=== PATIENT | female | born 1940 | race African-American/Black ===

== ENCOUNTER 2021-04-22 13:22 | Emergency (ER) | payer MEDICARE, MEDICAID, SELFPAY ==
[2021-04-22] VITALS (7 sets, daily range): BP systolic 143–218; BP diastolic 77–132; PULSE 71–92; RESP 18–25; TEMP 37.1; O2SAT 97–100
--- NOTE | ~2021-04-22 | CT_ITS ---
EXAMINATION: CTA brain carotid EXAM DATE: 04/22/2021 15:46 INDICATION: Right side hemiparesis, unsteady gait, tingling and numbness/paresthesia. TECHNIQUE: Noncontrast head CT. Spiral CTA of the carotid arteries was performed with intravenous i njection 100 cc of Omnipaque 350. Axial, coronal, sagittal reformatted images reviewed. Additional r eformatted images created on dedicated 3-D workstation. NASCET comparable standard used to assess th e degree of arterial stenosis. Spiral CT angiogram cerebral arteries performed with the same intrave nous injection of contrast. Source images of the brain CTA transferred to dedicated workstation for 3 -D rotational image creation. Coronal, sagittal maximum intensity pixel images also reviewed. The d ose-length product (DLP) for this examination was 1827.34 mGy-cm. The exposure was tailored accordi ng to patient size, and iterative reconstruction (ASIR) was used as additional dose reduction techniq ue. Comparison made to noncontrast head CT 01/02/2017. FINDINGS: There is mild to moderate right carotid, mild left carotid plaque with 0% stenosis bilatera lly. Vertebral basilar arteries unremarkable. Moderate stenosis of most of the left carotid siphon, d istal ICA. Multiple regions of cerebral artery atherosclerosis including truncated right posterior ce rebral artery, severe narrowing of the left middle cerebral artery, other scattered regions of modera te cerebral artery stenosis from atherosclerosis. Patient does have an anterior communicating artery, but difficult to identify any posterior communicating arteries. There is no carotid or vertebral bas ilar arterial dissection or fibromuscular dysplasia. There are no cerebral artery aneurysms. The sag ittal, transverse and sigmoid sinuses enhance normally, no venous sinus thrombosis. Internal cerebral veins also enhance normally. There is a 1.1 cm of acute hemorrhage in the right thalamus. Please note that this would be expected to cause left-sided deficit (history provided may be incorrect?). No intraventricular extension. I di scussed this finding with Jade Lopez MD at 04/22/2021 15:57 CDT. Old right internal capsular and caudate head lacunar infarctions. Old small left cerebellar and right occipital lobe infarctions. There is moderate microangiopathy and cerebral atrophy. There is no mass effect or midline shift. There is no obstructive hydrocephalus suspected. There are no extra-axial collections. Bilateral cataract surgery. Incidental Findings: Multinodular goiter. Moderate disc disease C5-6 and C6-7. Multiple dental caviti es. IMPRESSION: 1. Right thalamic 1.1 cm acute hemorrhagic infarction. 2. Carotid bulb 0% stenosis bilaterally. 3. Significant scattered cerebral arterial sclerosis. Moderate left carotid siphon stenosis. 4. Other chronic and incidental findings. Reviewed, dictated and finalized at location B. IMPRESSION: 1. Right thalamic 1.1 cm acute hemorrhagic infarction. 2. Carotid bulb 0% stenosis bilaterally. 3. Significant scattered cerebral arterial sclerosis. Moderate left carotid si phon stenosis. 4. Other chronic and incidental findings.
--- NOTE | ~2021-04-22 | XR_ITS ---
EXAMINATION: XR chest 1V portable 04/22/2021 13:56 INDICATION: Neuro deficit. Dyspnea. PROCEDURE: AP portable COMPARISON: 01/02/2017 FINDINGS: The lungs are clear. The cardiomediastinal silhouette is within normal limits. There are no pleural effusions. There is no pneumothorax suspected. IMPRESSION: 1: NO ACUTE CARDIOPULMONARY DISEASE. Reviewed, dictated and finalized at location A.
--- NOTE | 2021-04-22 13:37 | ECG_ITS ---
Measurements Intervals [place] Rate: 67 P: 45 MT: 150 QRS: -15 QRSD: 94 T: -2 QT: 407 QTc: 431 Interpretive Statements SINUS RHYTHM ATRIAL PREMATURE COMPLEXES VOLTAGE CRITERIA FOR LVH BORDERLINE T WAVE ABNORMALITY- INFERIOR LEADS BASELINE ARTIFACT- I, II, III, AVR, AVL, AVF, V1, V3-V6 BORDERLINE ECG Electronically Signed On 04-22-2021 13:39:51 CDT by Marco Antonio Kurtz D.O.
--- NOTE | 2021-04-22 13:56 | ED.NEUROSD ---
HPI - Neuro Symptoms/Deficit General Chief Complaint: Neuro Symptoms/Deficit Stated Complaint: WEAKNESS Time Seen by Provider: 04/22/21 13:39 Source: patient and RN notes reviewed Mode of arrival: EMS History of Present Illness HPI Narrative: This is a 80 year old female with history of HTN, DM, previous CVA with residual right side weakness who presents for evaluation of a possible CVA. She is concerned she may have had a stroke because she was having difficulty getting up from bathroom this morning around 5 am. She woke up this morning at 5 am. She feels like her right side feels weaker than normal. She also feels like right side of face is different. Her has had to help her this morning because she is having difficulty walking. She also reports increased urinary frequency today. She denies headache, blurred vision, chest pain, abdominal pain or shortness of breath. She has not taken any of her medication today. She woke up with symptoms at 5 am Related Data Home Medications Medication Instructions Recorded Confirmed apixaban [Eliquis] 5 mg PO BID 04/22/21 irbesartan 150 mg PO DAILY 04/22/21 metformin 500 mg PO DAILY 04/22/21 Allergies Allergy/AdvReac Type Severity Reaction Status Date / Time No Known Allergies Allergy Mild Verified 04/22/21 13:38 Review of Systems Review of Systems: All systems reviewed & are unremarkable except as noted in HPI and below Constitutional: Constitutional: Denies chills and Denies fever(s) Cardiovascular: Cardiovascular: Denies chest pain Respiratory: Respiratory: Denies cough and Denies dyspnea Genitourinary: Genitourinary: Reports nocturia Neurologic: Reports dizziness, Denies headache(s) and Reports focal weakness (right side) [facility] Past Medical History Medical History (Updated 04/22/21 @ 16:49 by Jade Lopez MD) CVA, old, hemiparesis Diabetes mellitus Hypertension Social History Social History (Updated 04/22/21 @ 13:59 by Jade Lopez MD) Smoking status: Never smoker Exam Const: General: alert Orientation/consciousness: patient oriented x3 Eyes: Pupils: Equal, round and reactive pupils present Resp: Effort & Inspection: normal respiratory effort and no retractions Auscultation: clear to auscultation bilaterally Cardio: Rate: regular rate Rhythm: regular rhythm Heart sounds: no murmurs GI: GI Palp: Yes Soft to palpation, No Tenderness to palpation present (GI) and No Guarding due to palpation present (GI) Auscultation: normal bowel sounds Skin: General skin exam: normal color Rashes: no rashes Neuro: General: patient oriented x3, moves all extremities and no focal motor deficits Cranial nerves: Yes Nystagmus present Other: slurred speech Psych: Mental Status: mental status grossly normal Affect: normal affect Course Reevaluation(s) Reevaluation #1: I have discussed with patient and that she was found to have acute intracranial hemorrhage Date: 04/22/21 Time: 16:45 Consultations Consultation #1: I spoke with Dr. Garcia of [facility] stroke. I discussed case. He agrees to cardene drip and BP goal 140 sysolic. He states no need to reverse eliquis. Patient should be sent to ER time critical. I also spoke with DR. You in ER Date: 04/22/21 Time: 16:45 Vital Signs Vital signs: Vital Signs Temperature 98.8 F 04/22/21 13:19 Pulse Rate 72 04/22/21 13:19 Respiratory Rate 18 04/22/21 13:19 Blood Pressure 218/115 H 04/22/21 13:19 Pulse Oximetry 97 04/22/21 13:19 Temperature 98.8 F 04/22/21 13:19 Pulse Rate 86 04/22/21 17:31 Respiratory Rate 25 H 04/22/21 17:26 Blood Pressure 146/78 H 04/22/21 17:31 Pulse Oximetry 98 04/22/21 17:26 MDM - Neuro Symptoms/Deficit Lab Data Attestation: I reviewed the patient's lab results. Result diagrams: 04/22/21 14:12 04/22/21 14:12 Labs: Lab Results 04/22/21 04/22/21 04/22/21 Range/Units 14:00 14:0
[2021-04-22] MEDS: IRBESARTAN 150 MG TABLET PO (14:19)
[2021-04-22 14:29] LABS: Basophils Percent Auto 0.7 % (0.2-1.2); Eosinophils Absolute Auto 0.3 K/mm3 (0-0.3); Eosinophils Percent Auto 5.5 % (0-4.4); Hematocrit 37.1 % (37.0-47.0); Hemoglobin 11.9 g/dL (12.0-15.0); Immature Granulocyte Absolute 0.01 K/mm3 (0.00-0.031); Immature Granulocyte Percent A 0.2 % (0-0.5); Lymphocytes Absolute Auto 1.85 K/mm3 (0.9-3.2); Lymphocytes Percent Auto 30.2 % (18.3-44.2); Mean Corpuscular HGB Conc 32.1 g/dl (32-36); Mean Corpuscular Hemoglobin 28.3 pg (26-34); Mean Corpuscular Volume 88.3 fl (80-100); Mean Platelet Volume 10.6 fl (7.4-10.4); Monocytes Absolute Auto 0.5 K/mm3 (0.1-0.6); Monocytes Percent Auto 8.6 % (2.6-8.5); Neutrophils Absolute Auto 3.4 K/mm3 (1.3-6.7); Neutrophils Percent Auto 54.8 % (45.5-73.1); Platelet Count Result 223 k/mm3 (150-375); Red Cell Distribution Width 13.4 % (11.5-14.5); White Blood Count 6.1 K/mm3 (4.5-10.0)
[2021-04-22 14:33] LABS: Add Urine Microscopic? YES; Appearance Urine Clear (Clear); Bilirubin Urine Negative (Negative); Blood Urine 2+ (Negative); Color Urine Colorless (Yellow); Glucose Urine UA Negative (Negative); Ketones Urine Negative (Negative); Leukocyte Esterase Ur Negative LEU/UL (Negative); Nitrate Urine Negative (Negative); Protein Urine Negative (Negative); RBC Urine 0-2 /hpf (0-2); Urobilinogen Urine Negative mg/dL (<2.0); WBC Urine 0-3 /hpf
[2021-04-22 14:35] LABS: Specific Grav Ur 1.003 (1.001-1.035)
[2021-04-22 14:39] LABS: INR 1.4; Prothrombin Time 16.9 Seconds (11.1-14.7)
[2021-04-22 14:46] LABS: Anion Gap 9 mmol/L (8-16); Blood Urea Nitrogen 10 mg/dL (7-17); Calcium 8.8 mg/dL (8.4-10.2); Carbon Dioxide 27 mmol/L (22-30); Chloride 105 mmol/L (98-107); Estimated CRCL calculation 42 ml/min; Estimated Glomerular Filt Rate > 60; Glucose 108 mg/dL (65-110); Potassium 3.6 mmol/L (3.4-5.0); Sodium 141 mmol/L (137-145)
[2021-04-22 14:56] LABS: Troponin I < 0.012 ng/mL (0.000-0.034)
[2021-04-22 14:57] LABS: Glucose Point of Care 109 mg/dl (65-105)
--- NOTE | 2021-04-22 15:14 | PC.NURSE ---
Pt to CT scan
[2021-04-22] MEDS: LABETALOL HCL INJ 100 MG/20 ML VIAL 20 MG IV PUSH (16:16)
[2021-04-22] MEDS: niCARdipine 20 MG/200 ML 20 MG/200 ML BAG 50 MG IV CONT (16:17)
[2021-04-22] MEDS: niCARdipine 20 MG/200 ML 20 MG/200 ML BAG 75 MG IV CONT (17:31)
== END 2021-04-22 17:30 | disposition short-term general hospital (02) ==
PROVIDERS: Emergency Medicine; Emergency Provider General Practice; PCP Emergency Medicine
DX: I62.9 Nontraumatic intracranial hemorrhage, unspecified (principal); I16.9 Hypertensive crisis, unspecified; E11.9 Type 2 diabetes mellitus without complications; Z79.84 Long term (current) use of oral hypoglycemic drugs
CPT/HCPCS: 36415; 70496; 70498; 71045; 80048; 81001; 82948; 84484; 85025; 85610; 85730; 93005; 96365; 96375; 99291; A9270; Q9967

== ENCOUNTER 2021-05-16 23:05 | Emergency (ER) | payer MEDICARE, MEDICAID, SELFPAY ==
--- NOTE | ~2021-05-16 | CT_ITS ---
EXAMINATION: CT brain wo con DATE: 05/17/2021 00:04 INDICATION: Ground-level fall after losing balance. Patient on anticoagulant therapy. History of cere brovascular accident. Generalized weakness. TECHNIQUE: Computed tomography (CT) of the head was performed without intravenous contrast. The mA wa s adjusted according to patient size. Iterative reconstruction technique was employed. Exam dose: 60 5.33 mGy-cm total exam DLP. COMPARISON: 04/22/2021 CTA brain carotid 01/03/2017 MRI brain/brainstem 01/12/2017 CT brain FINDINGS: Old left cerebellar hemispheric infarct. Focal right occipital old infarct. There are bilat eral chronic lacunar infarcts of the basal ganglia and thalami, right caudate nucleus, anterior limb and genu of the right internal capsule. There is prominent patchy nonspecific diminished attenuation of the subcortical and periventricular cerebral white matter, likely due to chronic small vessel isch emic changes. Cerebral atherosclerosis. No intracranial mass lesion or hemorrhage is evident. No midline shifts or mass effects. No subdural or epidural hematoma. No fracture or bone destruction of the cranial vault. The mastoid air cells and included paranasal sinuses are normally developed and aerated. IMPRESSION: Cerebral atherosclerosis Chronic small vessel ischemic changes of the cerebral white matter Chronic lacunar infarcts of the bilateral basal ganglia and thalami, right caudate nucleus and right internal capsule, right occipital lobe and left cerebellum No acute intracranial abnormality or skull fracture Reviewed, dictated and finalized at Location [facility]. Reviewed, dictated and finalized at location A. IMPRESSION: Cerebral atherosclerosis Chronic small vessel ischemic changes of the cerebral white matter Chronic lacunar infarcts of the bilateral basal ganglia and thalami, right caud ate nucleus and right internal capsule, right occipital lobe and left cerebellu m No acute intracranial abnormality or skull fracture
[2021-05-16 23:06] VITALS: BP 159/93; PULSE 64; RESP 19; TEMP 36.7; O2SAT 99
[2021-05-16 23:11] VITALS: O2SAT 98
--- NOTE | 2021-05-16 23:13 | PC.NURSE ---
Patient states when she fell she did hit her head on the left side, denies any pain to her head or neck.
[2021-05-16 23:15] VITALS: O2SAT 100
[2021-05-16 23:30] VITALS: O2SAT 99
[2021-05-16 23:32] VITALS: BP 164/96; O2SAT 99
[2021-05-16 23:45] VITALS: O2SAT 99
--- NOTE | 2021-05-16 23:52 | PC.NURSE ---
Patient taken to CT.
[2021-05-17] VITALS (10 sets, daily range): BP systolic 160–169; BP diastolic 81–88; PULSE 81–85; RESP 17–18; TEMP 36.1; O2SAT 96–100
--- NOTE | 2021-05-17 01:10 | ED.GENADULT ---
HPI - General Adult General Chief complaint: Fall Stated complaint: fall Time Seen by Provider: 05/16/21 23:06 History of Present Illness HPI narrative: Patient is an 81-year-old female who presents ER status post fall. Patient is supposed to use assistance when she gets up to walk but did not ask for help and while going to the bathroom slipped and fell backwards striking her head. She did not lose consciousness. She is oriented x4. She does take Eliquis given the fact that she has had stroke. Denies any other complaints at this time. Related Data Home Medications Medication Instructions Recorded Confirmed apixaban [Eliquis] 5 mg PO BID 04/22/21 irbesartan 150 mg PO DAILY 04/22/21 metformin 500 mg PO DAILY 04/22/21 Allergies Allergy/AdvReac Type Severity Reaction Status Date / Time No Known Allergies Allergy Mild Verified 04/22/21 13:38 Review of Systems Review of Systems: All systems reviewed & are unremarkable except as noted in HPI and below Constitutional: Constitutional: Denies chills, Denies fever(s) and Denies weakness ENT: Denies nasal congestion and Denies sore throat Cardiovascular: Cardiovascular: Denies chest pain, Denies rapid heart rate and Denies radiating jaw, neck or arm pain Gastrointestinal: Gastrointestinal: Denies abdominal pain, Denies nausea and Denies vomiting Musculoskeletal: Musculoskeletal: Denies back pain and Denies muscle cramps Neurologic: Denies syncope, Denies headache(s), Denies focal weakness and Denies numbness PMFSH Past Medical History Medical History (Updated 05/17/21 @ 01:14 by Raúl Wright MD) CVA, old, hemiparesis Diabetes mellitus Hypertension Surgical History Surgical History (Updated 05/17/21 @ 01:12 by Raúl Wright MD) No pertinent past surgical history Social History Social History (Updated 04/22/21 @ 13:59 by Jade Lopez MD) Smoking status: Never smoker Exam Narrative: GENERAL: Well-appearing, well-nourished, and in no acute distress. HEAD: Normocephalic, atraumatic. EYES: PERRL and EOMI. ENT: Mucous membranes moist. CHEST: Clear to auscultation. No respiratory distress. HEART: Regular rate and rhythm. Normal peripheral pulses. EXTREMITIES: Normal range of motion. No edema. SKIN: Warm, dry, no rash. NEURO: No focal deficits. Alert and oriented x3. PSYCH: Normal mood and affect. Course Course Emergency Course: Patient informed results. Discharge home. Vital Signs Vital signs: Vital Signs Temperature 98.0 F 05/16/21 23:06 Pulse Rate 64 05/16/21 23:06 Respiratory Rate 19 05/16/21 23:06 Blood Pressure 159/93 H 05/16/21 23:06 Pulse Oximetry 99 05/16/21 23:06 Temperature 98.0 F 05/16/21 23:06 Pulse Rate 64 05/16/21 23:06 Respiratory Rate 19 05/16/21 23:06 Blood Pressure 169/81 H 05/17/21 00:31 Pulse Oximetry 99 05/17/21 00:45 Medical Decision Making Vital Signs Vital Signs: Vital Signs Temperature 98.0 F 05/16/21 23:06 Pulse Rate 64 05/16/21 23:06 Respiratory Rate 19 05/16/21 23:06 Blood Pressure 159/93 H 05/16/21 23:06 Pulse Oximetry 99 05/16/21 23:06 Temperature 98.0 F 05/16/21 23:06 Pulse Rate 64 05/16/21 23:06 Respiratory Rate 19 05/16/21 23:06 Blood Pressure 169/81 H 05/17/21 00:31 Pulse Oximetry 99 05/17/21 00:45 Imaging Data Radiologist's impression: CT head: Moderate diffuse periventricular and deep white matter low-density throughout the cerebrum consistent with chronic small vessel disease. Multiple old lacunar infarcts in the right frontal lobe deep white matter, right basal ganglia, left thalamus, and in the mid brain on the right. Old infarct left cerebellum measuring approximately 0.7 cm. No evidence of acute large vessel infarct or intracranial hemorrhage. The paranasal sinuses and mastoid air cells are normal. No skull fracture or scalp hematoma. Discharge Plan Discharge Clinical Impression: Head injury
== END 2021-05-17 05:06 | disposition home or self-care (01) ==
PROVIDERS: Emergency Provider Emergency Medicine; PCP Emergency Medicine
DX: S09.90XA Unspecified injury of head, initial encounter (principal); I69.959 Hemiplegia and hemiparesis following unspecified cerebrovascular disease affecting unspecified side; E11.9 Type 2 diabetes mellitus without complications; I10 Essential (primary) hypertension; I67.2 Cerebral atherosclerosis; W01.0XXA Fall on same level from slipping, tripping and stumbling without subsequent striking against object, initial encounter; Z79.01 Long term (current) use of anticoagulants; Z79.84 Long term (current) use of oral hypoglycemic drugs
CPT/HCPCS: 70450; 99284

== ENCOUNTER 2022-04-15 16:45 | Emergency (ER) | payer MEDICARE, MEDICAID, SELFPAY ==
[2022-04-15] VITALS (16 sets, daily range): BP systolic 184–220; BP diastolic 85–120; PULSE 55–94; RESP 15–23; TEMP 37; O2SAT 88–99
--- NOTE | ~2022-04-15 | CT_ITS ---
EXAMINATION: CT brain wo con DATE: 04/15/2022 20:56 INDICATION: Weakness. TECHNIQUE: Computed tomography (CT) of the head was performed without intravenous contrast. The mA wa s adjusted according to patient size. Iterative reconstruction technique was employed. The dose-lengt h product was 605.33 mGy-cm. COMPARISON: Head CT 05/16/2021, brain MRI 01/03/2017 FINDINGS: There are scattered areas of low attenuation in the cerebral white matter. There are old in farcts in the bilateral basal ganglia and thalami. There is an old infarct in left cerebellum. There is a 6 mm hyperdense mass in left cerebellum. There is a small old infarct in right cerebellum. There is no acute ischemic infarct. There is ex vacuo dilatation of right lateral ventricle. There are lik ailyn changes of ocular lens replacement surgeries. There is mild mucosal thickening in the paranasal s inuses. The mastoid air cells are normal. IMPRESSION: 1. New 6 mm hyperdense mass in left cerebellum, consistent with acute intraparenchymal hemorrhage. I called this finding to Ivanna Mendoza. 2. Old infarcts in the cerebellum, thalami, and bilateral basal ganglia. 3. Stable extensive nonspecific cerebral white matter disease, which likely represents chronic small vessel ischemic disease. Reviewed, dictated and finalized at location A. IMPRESSION: 1. New 6 mm hyperdense mass in left cerebellum, consistent with acute intrapare nchymal hemorrhage. I called this finding to Ivanna Mendoza. 2. Old infarcts in the cerebellum, thalami, and bilateral basal ganglia. 3. Stable extensive nonspecific cerebral white matter disease, which likely rep resents chronic small vessel ischemic disease.
--- NOTE | 2022-04-15 17:00 | ECG_ITS ---
Measurements Intervals [place] Rate: 61 P: 60 [place]: 151 QRS: 2 QRSD: 105 T: -19 QT: 429 QTc: 435 Interpretive Statements SINUS RHYTHM DELAYED PRECORDIAL R/S TRANSITION LEFT VENTRICULAR HYPERTROPHY BORDERLINE T WAVE ABNORMALITY- INFERIOR LEADS BASELINE ARTIFACT- I, II, AVR, AVL BORDERLINE ECG Electronically Signed On 04-15-2022 20:23:06 CDT by Marco Antonio Kurtz D.O.
--- NOTE | 2022-04-15 20:28 | ED.GENADULT ---
HPI - General Adult General Chief complaint: Unspecified <Ivanna Mendoza PA-C - Last Filed: 04/16/22 02:16> Stated complaint: Hih BP, From PCP office <MALGORZATA Jordan Last Filed: 04/16/22 02:16> Time Seen by Provider: 04/15/22 20:28 <Ivanna Mendoza PA-C - Last Filed: 04/16/22 02:16> History of Present Illness HPI narrative: Patient is an 81-year-old female with history of old ICH, hypertension here for evaluation of elevated blood pressure at her doctor's office. States that she feels funny but does not have any symptoms such as chest pain, shortness of breath, headaches, visual changes, weakness on one side of her body. She states that she has been out of her blood pressure medicines for the past 2 days. She did have a fall yesterday and is unsure if she hit her head. She does take Eliquis but is unsure if she takes ASA. <MALGORZATA Jordan Last Filed: 04/16/22 02:16> Related Data Home medications: Home Medications Medication Instructions Recorded Confirmed apixaban 5 mg tablet (Eliquis) 5 mg PO BID 04/22/21 irbesartan 150 mg tablet 150 mg PO DAILY 04/22/21 metformin 500 mg tablet 500 mg PO DAILY 04/22/21 metoprolol succinate 25 mg 25 mg PO 04/15/22 tablet,extended release 24 hr <MALGORZATA Jordan Last Filed: 04/16/22 02:16> Allergies/adverse reactions: Allergies Allergy/AdvReac Type Severity Reaction Status Date / Time No Known Allergies Allergy Mild Verified 04/15/22 20:27 <MALGORZATA Jordan Last Filed: 04/16/22 02:16> Review of Systems Review of Systems: Gen.: Denies fevers or chills Eyes: Denies eye pain or visual change ENT: Denies congestion Respiratory: Denies shortness of breath or cough CV: Denies chest pain or palpitations GI: Denies abdominal pain nausea, emesis or diarrhea denies burning, urgency, frequency or hematuria Musculoskeletal: Denies back pain or muscle pain Neuro: Denies numbness, tingling, weakness or focal weakness Skin: Denies rash Except as documented, all other systems reviewed and negative <Ivanna Mendoza PA-C - Last Filed: 04/16/22 02:16> PMFSH Past Medical History Medical History: Medical History CVA, old, hemiparesis Diabetes mellitus Hypertension <Ivanna Mendoza PA-C - Last Filed: 04/16/22 02:16> Surgical History Surgical History: Surgical History No pertinent past surgical history <Ivanna Mendoza PA-C - Last Filed: 04/16/22 02:16> Social History Social History: Social History (Updated 04/22/21 @ 13:59 by Jade Lopez MD) Smoking status: Never smoker <Ivanna Mendoza PA-C - Last Filed: 04/16/22 02:16> Exam Narrative: APPEARANCE: Well appearing, no pain in distress, well-nourished. Head: Normocephalic and atraumatic. EYES: PERRLA/EOMI, conjunctivae clear NOSE: No nasal drainage EARS: External ear normal in appearance THROAT: Oropharynx is clear. Mucous membranes are moist. NECK: Supple. No adenopathy, no masses. RESPIRATORY: Airway patent, respirations nonlabored. Clear to auscultation bilaterally, no rales, rhonchi, wheezing. CARDIOVASCULAR: Regular rate and rhythm without murmurs, rubs, or gallops. ABDOMINAL: Normoactive bowel sounds. Soft, nontender, nondistended. No rebound tenderness or guarding. MUSCULOSKELETAL: Extremities are warm and well-perfused. Moves all extremities well. No edema. NEURO: Normal speech. [id number] abnormal. SKIN: Skin is warm and dry. No rashes. PSYCHIATRIC: Normal affect/mood. <Ivanna Mendoza PA-C - Last Filed: 04/16/22 02:16> Course SURGICAL RESIDENT/PA Physician Supervision For this patient encounter, I reviewed the SURGICAL RESIDENT or PA documentation, treatment plan, and medical decision making <Royal Stafford MD - Last Filed: 04/16/22 03:28>
[2022-04-15 20:49] LABS: Basophils Absolute Auto 0.1 K/mm3 (0.0-0.1); Basophils Percent Auto 0.7 % (0.2-1.2); Eosinophils Absolute Auto 0.7 K/mm3 (0-0.3); Eosinophils Percent Auto 9.1 % (0-4.4); Hematocrit 35.5 % (37.0-47.0); Hemoglobin 11.2 g/dL (12.0-15.0); Immature Granulocyte Absolute 0.02 K/mm3 (0.00-0.031); Immature Granulocyte Percent A 0.3 % (0-0.5); Lymphocytes Absolute Auto 2.71 K/mm3 (0.9-3.2); Lymphocytes Percent Auto 36.9 % (18.3-44.2); Mean Corpuscular HGB Conc 31.5 g/dl (32-36); Mean Corpuscular Hemoglobin 28.4 pg (26-34); Mean Corpuscular Volume 90.1 fl (80-100); Mean Platelet Volume 10.2 fl (7.4-10.4); Monocytes Absolute Auto 0.6 K/mm3 (0.1-0.6); Monocytes Percent Auto 8.4 % (2.6-8.5); Neutrophils Absolute Auto 3.3 K/mm3 (1.3-6.7); Neutrophils Percent Auto 44.6 % (45.5-73.1); Platelet Count Result 222 k/mm3 (150-375); Red Blood Count 3.94 M/mm3 (4.2-5.4); Red Cell Distribution Width 13.3 % (11.5-14.5); White Blood Count 7.3 K/mm3 (4.5-10.0)
[2022-04-15 20:59] LABS: Alanine Aminotransferase 19 U/L (6-35); Albumin Level 3.8 g/dL (3.5-5.1); Alkaline Phosphatase 167 U/L (38-126); Anion Gap 4 mmol/L (8-16); Aspartate Amino Transferase 21 U/L (14-36); Bilirubin,Total 0.4 mg/dL (0.2-1.3); Blood Urea Nitrogen 13 mg/dL (7-17); Carbon Dioxide 30 mmol/L (22-30); Chloride 106 mmol/L (98-107); Estimated CRCL calculation 41 ml/min; Estimated Glomerular Filt Rate > 60; Glucose 88 mg/dL (65-110); Potassium 3.3 mmol/L (3.4-5.0); Sodium 140 mmol/L (137-145)
[2022-04-15] MEDS: niCARdipine 20 MG/200 ML 20 MG/200 ML BAG 50 MG IV CONT (21:37)
[2022-04-15] MEDS: HUMAN PROTHROMBIN COMPLEX(PCC) 3,000 UNITS in PREMIXIV 0 ML 504 UNITS IV CONT (22:02)
== END 2022-04-15 22:05 | disposition short-term general hospital (02) ==
PROVIDERS: Physician Assistant; Emergency Provider Emergency Medicine; PCP Emergency Medicine
DX: I61.4 Nontraumatic intracerebral hemorrhage in cerebellum (principal); I69.959 Hemiplegia and hemiparesis following unspecified cerebrovascular disease affecting unspecified side; E11.9 Type 2 diabetes mellitus without complications; I10 Essential (primary) hypertension; Z79.01 Long term (current) use of anticoagulants; Z79.84 Long term (current) use of oral hypoglycemic drugs; I51.7 Cardiomegaly; R94.31 Abnormal electrocardiogram [ECG] [EKG]; R90.82 White matter disease, unspecified
CPT/HCPCS: 36415; 70450; 80053; 85025; 93005; 96374; 96375; 99285; J7168

== ENCOUNTER 2023-07-07 14:19 | Observation (INO) | payer MEDICARE, MEDICAID, SELFPAY ==
[2023-07-07] VITALS (12 sets, daily range): BP systolic 143–225; BP diastolic 80–126; PULSE 49–125; RESP 14–24; TEMP 36.1–36.8; O2SAT 96–100; BMI 18.8
--- NOTE | ~2023-07-07 | XR_ITS ---
EXAMINATION: XR abdomen obstructive series DATE: 07/09/2023 12:39 INDICATION: Abdominal pain. TECHNIQUE: Upright and supine views of the abdomen on 3 radiographs were obtained. COMPARISON: None. FINDINGS: There are no dilated loops of bowel. There is a moderate volume of stool in the colon. No f ree intraperitoneal gas. IMPRESSION: 1. Normal bowel gas pattern. Reviewed, dictated and finalized at location A.
--- NOTE | ~2023-07-07 | CT_ITS ---
EXAMINATION: CT brain wo con DATE: 07/07/2023 17:18 INDICATION: Weakness. Hypertension. TECHNIQUE: Computed tomography (CT) of the head was performed without intravenous contrast. The dose- length product was 605.33 mGy-cm. Automated exposure control and iterative reconstruction technique w ere employed. COMPARISON: CT dated 04/15/2022 FINDINGS: There is chronic right occipital and left cerebellar infarctions. Chronic left thalamic and bilateral lacunar infarctions. Generalized atrophy. There are scattered severe periventricular and s ubcortical white matter changes, most likely related to small vessel ischemic disease (microangiopath y). No ventriculomegaly or midline shift. Basilar cisterns are patent. There is intracranial atherosc lerosis. No acute hemorrhage, infarction, mass or mass effect. IMPRESSION: 1. No acute intracranial abnormality. Reviewed, dictated and finalized at location A.
--- NOTE | ~2023-07-07 | XR_ITS ---
EXAMINATION: XR chest 2V DATE: 07/07/2023 15:26 INDICATION: Weakness TECHNIQUE: AP and lateral views of the chest are obtained. COMPARISON: 04/22/2021 FINDINGS: The lungs are free of acute opacities. No pleural effusion or pneumothorax. The cardiomedia stinal silhouette is normal. There is moderate thoracic spondylosis. IMPRESSION: 1. No acute cardiopulmonary abnormality. Reviewed, dictated and finalized at location L.
--- NOTE | ~2023-07-07 | XR_ITS ---
MODIFIED ESOPHAGRAM HISTORY: Aspiration TECHNIQUE: Modified barium esophagram was performed on 07/11/2023. I administered fluoroscopy and per formed the exam with speech pathologist. Patient was seated for lateral fluoroscopic imaging for ing estion of thin liquids, pudding, solids and quantified amounts, followed by thin liquids in uncontrol led amounts. This was recorded on tape. A single fluoroscopic spot image was also recorded. The DAP f or this procedure was 2.748 Gycm2. The amount of fluoroscopy time used during this procedure was 4.2 minutes. FINDINGS: Oral stage: Reduced labial seal/attention and reduced lingual movement. Pharyngeal stage: Reduced laryngeal elevation and tongue base retraction. There is vallecular residue and pharyngeal penetration without aspiration. Cervical/esophageal stage: Adequate function. IMPRESSION: Oropharyngeal dysphagia with laryngeal penetration without aspiration. Please correlate with speech pathologist findings and specific feeding recommendations. Reviewed, dictated and finalized at location A. IMPRESSION: Oropharyngeal dysphagia with laryngeal penetration without aspirati on. Please correlate with speech pathologist findings and specific feeding rec ommendations.
--- NOTE | 2023-07-07 14:23 | ECG_ITS ---
Measurements Intervals [place] Rate: 48 P: 84 [place]: 152 QRS: 8 QRSD: 106 T: 267 QT: 459 QTc: 413 Interpretive Statements SINUS BRADYCARDIA ST DEVIATION AND MODERATE T-WAVE ABNORMALITY, CONSIDER ANTEROLATERAL ISCHEMIA [-0.1+ mV T WAVE IN V3-V6] ST DEVIATION AND MODERATE T-WAVE ABNORMALITY, CONSIDER INFERIOR ISCHEMIA [-0.1+ mV T WAVE IN II/aVF] ABNORMAL ECG NO PREVIOUS ECG AVAILABLE FOR COMPARISON Electronically Signed On 07-08-2023 7:24:04 CDT by Dillon Benites M.D.
[2023-07-07 15:07] LABS: Appearance Urine Cloudy (Clear); Bacteria Urine None Seen /hpf; Bilirubin Urine 2+ (Negative); Blood Urine Negative (Negative); Color Urine Dark Yellow (Yellow); Glucose Urine UA Negative (Negative); Ketones Urine 1+ mg/dL (Negative); Leukocyte Esterase Ur 1+ LEU/UL (Negative); Mucus Urine Present /lpf; Need Manual Microscopic Reviewed; Nitrate Urine Negative (Negative); Non Pathogenic Casts >20; Protein Urine 2+ mg/dL (Negative); Specific Grav Ur 1.032 (1.001-1.035); Squamous Epithelial Cell Urine Moderate /hpf (Few); WBC Urine 0-5 /hpf
[2023-07-07 15:08] LABS: Basophils Percent Auto 0.7 % (0.2-1.2); Eosinophils Absolute Auto 0.1 K/mm3 (0-0.3); Eosinophils Percent Auto 1.5 % (0-4.4); Hematocrit 32.7 % (37.0-47.0); Hemoglobin 10.5 g/dL (12.0-15.0); Immature Granulocyte Absolute 0.02 K/mm3 (0.00-0.031); Immature Granulocyte Percent A 0.4 % (0-0.5); Lymphocytes Percent Auto 30.4 % (18.3-44.2); Mean Corpuscular HGB Conc 32.1 g/dl (32-36); Mean Corpuscular Hemoglobin 28.4 pg (26-34); Mean Corpuscular Volume 88.4 fl (80-100); Mean Platelet Volume 10.2 fl (7.4-10.4); Monocytes Absolute Auto 0.4 K/mm3 (0.1-0.6); Monocytes Percent Auto 7.8 % (2.6-8.5); Neutrophils Absolute Auto 2.7 K/mm3 (1.3-6.7); Neutrophils Percent Auto 59.2 % (45.5-73.1); Platelet Count Result 182 k/mm3 (150-375); Red Cell Distribution Width 13.2 % (11.5-14.5); White Blood Count 4.6 K/mm3 (4.5-10.0)
[2023-07-07 15:10] LABS: Add Urine Microscopic? YES
[2023-07-07 15:17] LABS: Alanine Aminotransferase 14 U/L (6-35); Albumin Level 3.6 g/dL (3.5-5.1); Alkaline Phosphatase 84 U/L (38-126); Anion Gap 9 mmol/L (8-16); Aspartate Amino Transferase 26 U/L (14-36); Bilirubin,Total 0.6 mg/dL (0.2-1.3); Blood Urea Nitrogen 17 mg/dL (7-17); Calcium 8.9 mg/dL (8.4-10.2); Carbon Dioxide 25 mmol/L (22-30); Chloride 104 mmol/L (98-107); Estimated CRCL calculation 29 ml/min; Estimated Glomerular Filt Rate 58; Glucose 94 mg/dL (65-110); Sodium 138 mmol/L (137-145)
[2023-07-07 17:30] LABS: Troponin I < 0.012 ng/mL (0.000-0.034)
--- NOTE | 2023-07-07 18:30 | PC.NURSE ---
Spoke with pt's Jarrod Thomas at regarding pt. stated that the pt has been losing her appetite and now eats around one meal and day and stated she has been sleeping a lot more.
--- NOTE | 2023-07-07 20:00 | ED.WEAKNESS ---
HPI - Weakness General Chief complaint: Weakness Stated complaint: weakness Time Seen by Provider: 07/07/23 16:30 Source: patient, EMS and RN notes reviewed Mode of arrival: EMS Limitations: other (poor historian) History of Present Illness HPI Narrative: This is an 83 year old female with history of hypertension, CVA, intracranial hemorrhage who presents for evaluation of weakness. Patient is alert and oriented x 4. She is not sure why she is here. She states she feels well. She denies chest pain, nausea, vomiting, shortness of breath, abdominal pain, fever, chills. She was sent to ER from her PCP office Dr. Monge for weakness. Nursing called patient's and he told them patient is only eats 1 meal a day for 1 week and she is sleeping more. Dr. Monge states patient looked as if she could not hold her head up. She looked weak. Related Data Allergies Allergy/AdvReac Type Severity Reaction Status Date / Time No Known Drug Allergies Allergy Unknown Unverified 04/29/22 12:49 Review of Systems Review of Systems: All systems reviewed & are unremarkable except as noted in HPI and below PMFSH Past Medical History Medical History Combined hyperlipidemia CVA (cerebral vascular accident) CVA, old, hemiparesis Diabetes Diabetes mellitus Hypertension Hypertension Intraparenchymal hemorrhage of brain Surgical History Surgical History (Updated 04/21/22 @ 14:41 by Richar Valente) No pertinent past surgical history Social History Social History Smoking status: Never smoker Alcohol intake: never Substance use: never Lack of Transportation: No Lack of Food: Never True Current Housing: I Have Housing Concerned About Future Housing: No Difficulty Paying Gas/Electric Bills: No Difficulty Paying for Meds: No Currently Unemployed: No Education: Decline to Answer Difficulty w/ Childcare or Family Care: Decline to Answer Spiritual care concerns: No Exam Const: General: no acute distress and alert Orientation/consciousness: patient oriented x3 HENMT: Head: normal to inspection Mouth: Yes moist mucous membranes Throat: posterior oropharynx normal and uvula midline Eyes: Pupils: Equal, round and reactive pupils present Other: disconjugate gaze Chest: Chest palpation & inspection: normal inspection of the chest Resp: Effort & Inspection: normal respiratory effort Auscultation: clear to auscultation bilaterally Cardio: Rate: bradycardic Rhythm: regular rhythm Heart sounds: no murmurs GI: GI Palp: Yes Soft to palpation, No Tenderness to palpation present (GI), No Guarding due to palpation present (GI) and No Rigid due to palpation Auscultation: normal bowel sounds Skin: General skin exam: normal color Rashes: no rashes Neuro: General: patient oriented x3, moves all extremities and CN's II-XI intact bilaterally Other: Patient had unsteady gait Psych: Mental Status: mental status grossly normal Affect: normal affect Attitude: cooperative Course Reevaluation(s) Reevaluation #1: Nursing staff and I ambulated patient. She was able to sit her self up. She need some assistance lower feet to ground and getting her walk. She was able to ambulate with her walker but she was unsteady. She seemed to be having difficulty walking straight to the door. She may be having difficulty seeing. Nursing also reports patient seemed to be unable to drink water They state she was drooling so didn't feel comfortable giving pills. Date: 07/07/23 Time: 20:15 Consultations Consultation #1: I Discussed case with DR. Baptiste. She agrees to admit for failure to thrive. REcommend Pt/ OT speech therapy evaluation. Patient likey having progression of her previous neuro issues. She does not appear to have CVA at this time. Date: 07/07/23 Time: 20:42 Vital Signs Vital signs: Vital Signs Tem
[2023-07-07] MEDS: SODIUM CHLORIDE 0.9% IV 500 ML 999 ML IV CONT (20:35)
--- NOTE | 2023-07-07 20:42 | PC.NURSE ---
Pt unable to swallow water without drooling/coughing. Potassium held. Dr Lopez notified.
--- NOTE | 2023-07-07 20:52 | PM.IMHP ---
H&P: HPI History of Present Illness Date/Time: 07/07/23 20:52 Chief Complaint: Generalized weakness Narrative: This is an 83-year-old female with past medical history significant for intracranial bleed, hypertension, dyslipidemia, diabetes mellitus. Patient was brought to the emergency room for evaluation due to generalized weakness. Patient is unable to really contribute in a meaningful way to history taking in emergency room patient with systolic blood pressure in the 200s. Patient is been admitted for further evaluation management and treatment. EXAMINATION: XR chest 2V DATE: 07/07/2023 15:26 INDICATION: Weakness TECHNIQUE: AP and lateral views of the chest are obtained. COMPARISON: 04/22/2021 FINDINGS: The lungs are free of acute opacities. No pleural effusion or pneumothorax. The cardiomediastinal silhouette is normal. There is moderate thoracic spondylosis. IMPRESSION: 1. No acute cardiopulmonary abnormality. EXAMINATION: CT brain wo con DATE: 07/07/2023 17:18 INDICATION: Weakness. Hypertension. TECHNIQUE: Computed tomography (CT) of the head was performed without intravenous contrast. The dose-length product was 605.33 mGy-cm. Automated exposure control and iterative reconstruction technique were employed. COMPARISON: CT dated 04/15/2022 FINDINGS: There is chronic right occipital and left cerebellar infarctions. Chronic left thalamic and bilateral lacunar infarctions. Generalized atrophy. There are scattered severe periventricular and subcortical white matter changes, most likely related to small vessel ischemic disease (microangiopathy). No ventriculomegaly or midline shift. Basilar cisterns are patent. There is intracranial atherosclerosis. No acute hemorrhage, infarction, mass or mass effect. IMPRESSION: 1. No acute intracranial abnormality. Review of Systems Review of Systems: ROS unobtainable: Yes unobtainable due to mental status (Likely underlying dementia) [facility] Past Medical History Medical History (Updated 07/08/23 @ 01:49 by Sofi Baptiste MD) Combined hyperlipidemia CVA (cerebral vascular accident) CVA, old, hemiparesis Diabetes Diabetes mellitus Hypertension Hypertension Intraparenchymal hemorrhage of brain Surgical History Surgical History (Updated 04/21/22 @ 14:41 by Richar Valente) No pertinent past surgical history Family History Family History (Updated 07/07/23 @ 23:21 by Tanisha Pollard RN) Other Unknown family medical history Social History Social History Smoking status: Never smoker Alcohol intake: never Substance use: never Lack of Transportation: No Lack of Food: Never True Current Housing: I Have Housing Concerned About Future Housing: No Difficulty Paying Gas/Electric Bills: No Difficulty Paying for Meds: No Currently Unemployed: No Education: Decline to Answer Difficulty w/ Childcare or Family Care: Decline to Answer Spiritual care concerns: No Meds Home Medications and Allergies Home Medications Medication Instructions Recorded Confirmed Type carvedilol 3.125 mg tablet (Coreg) 6.25 mg PO BIDWM #60 tabs 04/29/22 07/07/23 Rx hydralazine 25 mg tablet 25 mg PO QID #120 tabs 04/29/22 07/07/23 Rx Allergies Allergy/AdvReac Type Severity Reaction Status Date / Time No Known Drug Allergies Allergy Unknown Other Verified 07/07/23 23:49 Vital Signs Vital Signs - 24 hr 07/07/23 14:18 07/07/23 14:58 07/07/23 15:59 Temperature 98.2 F Pulse Rate 49 L 52 L 52 L Respiratory Rate 16 17 14 Blood Pressure 177/96 H 177/96 H 189/99 H Pulse Oximetry 96 100 100 07/07/23 16:51 07/07/23 18:23 07/07/23 19:12 Temperature Pulse Rate 55 L 77 125 H Respiratory Rate 18 24 H Blood Pressure 190/104 H 200/114 H Pulse Oximetry 100 100 07/07/23 19:14 Temperature Pulse Rate 113 H Respiratory Rate Blood Pressure 143/98 H Pulse Oximetry
[2023-07-07] MEDS: hydrALAZINE HCL 20 MG/ML VIAL 10 MG IV PUSH ×2 (21:19→22:32)
[2023-07-07] MEDS: SODIUM CHLORIDE 0.9% IV 1,000 ML 75 ML IV CONT (21:20)
--- NOTE | 2023-07-07 22:28 | PC.NURSE ---
Patient's blood pressure still elevated at 217/101. Notified Dr. Baptiste who verbally ordered 10mg hydralazine IVP.
--- NOTE | 2023-07-07 23:00 | ADMGEN ---
This patient, Dinora Shetty, was admitted to IMU Room 205-02. Patient/family oriented to hospital policies and general routines including ID bracelet, bed and alarms, visiting hours, pain management, procedures, bathroom and other care routines, personal items, smoking policy, room service/diet, and visiting hours. Information on how to activate the Rapid Response Team has been discussed. Patient/Family are encouraged to report perceived risks to care and to ask questions if they do not understand what they are told or what they should do.
[2023-07-08] VITALS (23 sets, daily range): BP systolic 157–212; BP diastolic 82–105; PULSE 51–88; RESP 14–19; TEMP 36.3–36.5; O2SAT 98–100; BMI 20.5
[2023-07-08] MEDS: hydrALAZINE HCL 20 MG/ML VIAL 10 MG IV PUSH (00:50)
[2023-07-08] MEDS: POTASSIUM CHLORIDE INJ 40 MEQ in SODIUM CHLORIDE 0.9% IV 500 ML 130 MEQ IVPB (04:05)
[2023-07-08] MEDS: hydrALAZINE HCL 50 MG TABLET PO (04:05)
[2023-07-08 04:59] LABS: Basophils Percent Auto 0.9 % (0.2-1.2); Eosinophils Absolute Auto 0.1 K/mm3 (0-0.3); Eosinophils Percent Auto 2.5 % (0-4.4); Hematocrit 34.2 % (37.0-47.0); Hemoglobin 10.8 g/dL (12.0-15.0); Immature Granulocyte Absolute 0.01 K/mm3 (0.00-0.031); Immature Granulocyte Percent A 0.2 % (0-0.5); Immature Platelet Fraction Pct 7.8 % (0.9-11.2); Lymphocytes Absolute Auto 1.66 K/mm3 (0.9-3.2); Lymphocytes Percent Auto 38.1 % (18.3-44.2); Mean Corpuscular HGB Conc 31.6 g/dl (32-36); Mean Corpuscular Hemoglobin 28.3 pg (26-34); Mean Corpuscular Volume 89.5 fl (80-100); Mean Platelet Volume 11.5 fl (7.4-10.4); Monocytes Absolute Auto 0.3 K/mm3 (0.1-0.6); Monocytes Percent Auto 6.7 % (2.6-8.5); Neutrophils Absolute Auto 2.3 K/mm3 (1.3-6.7); Neutrophils Percent Auto 51.6 % (45.5-73.1); Platelet Count Result 167 k/mm3 (150-375); Red Blood Count 3.82 M/mm3 (4.2-5.4); White Blood Count 4.4 K/mm3 (4.5-10.0)
[2023-07-08 05:08] LABS: Alanine Aminotransferase 12 U/L (6-35); Albumin Level 3.6 g/dL (3.5-5.1); Alkaline Phosphatase 82 U/L (38-126); Anion Gap 10 mmol/L (8-16); Aspartate Amino Transferase 25 U/L (14-36); Bilirubin,Total 0.8 mg/dL (0.2-1.3); Blood Urea Nitrogen 11 mg/dL (7-17); Calcium 8.4 mg/dL (8.4-10.2); Carbon Dioxide 22 mmol/L (22-30); Chloride 102 mmol/L (98-107); Estimated CRCL calculation 40 ml/min; Estimated Glomerular Filt Rate > 60; Glucose 83 mg/dL (65-110); Potassium 2.8 mmol/L (3.4-5.0); Sodium 134 mmol/L (137-145)
[2023-07-08 05:44] LABS: Magnesium 1.8 mg/dL (1.6-2.3)
[2023-07-08] MEDS: carvediloL 3.125 MG TABLET 6.25 MG PO ×2 (08:34→20:19)
[2023-07-08] MEDS: hydrALAZINE HCL 25 MG TABLET PO ×4 (08:34→20:19)
[2023-07-08] MEDS: lisinopriL 10 MG TABLET PO (08:35)
[2023-07-08 11:02] LABS: Magnesium 1.6 mg/dL (1.6-2.3); Potassium 3.6 mmol/L (3.4-5.0)
--- NOTE | 2023-07-08 12:47 | PCSTNOTE ---
Please refer to the Bedside Swallow Evaluation in the EMR. Please note, silent aspiration cannot be ruled out at bedside.
[2023-07-08] MEDS: SODIUM CHLORIDE 0.9% IV 1,000 ML 75 ML IV CONT (14:39)
--- NOTE | 2023-07-08 16:36 | PM.IMPN ---
Progress Note: A&P Assessment and Plan (1) Adult failure to thrive: Code(s): R62.7 - Adult failure to thrive Status: Acute Assessment and Plan: Patient was sent in to the ED by the primary care doctor for weakness. Patient only eats 1 meal a day and she is sleeping more according to the notes in the chart. On evaluation, patient had hypokalemia and markedly elevated blood pressure. CXR clear. CT brain showing no acute findings. EKG does show inverted T waves anteriorlateral and inferior which is a change from last year (probably LVH with strain pattern). Troponin negative. She normally walks with a cane. Potassium has been replaced. Blood pressure better controlled. Therapy has been ordered. Increase activity as tolerated. Speech therapy felt patient could swallow safely and pureed diet started. She does have bradycardia at times so would consider undiagnosed sleep apnea. She could have central sleep apnea from her history of stroke. Continue supportive care. Check Echo. (2) Weakness: Code(s): R53.1 - Weakness Status: Acute Assessment and Plan: As above. (3) Hypertension: Code(s): I10 - Essential (primary) hypertension Status: Acute Assessment and Plan: Patient's blood pressure was reviewed on 07/08 Blood pressure elevated on admission and has climbed to 225/88. Hydralazine and Coreg have been resumed. Lisinopril added. Will continue to adjust medications as needed. (4) Hypokalemia: Code(s): E87.6 - Hypokalemia Status: Acute Assessment and Plan: Potassium was low on admission and dropped to 2.8 this morning. Replacement ordered. Repeat potassium is improved. Magnesium is 1.6 and this will be replaced as well. Continue to monitor. 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 PT and OT has been ordered. (6) Diabetes: Code(s): E11.9 - Type 2 diabetes mellitus without complications Status: Acute Assessment and Plan: The patient's blood glucose was reviewed on 07/08 Glucose remains well controlled. Not on treatment Start AccuCheks covering with sliding scale. Hypoglycemia protocol to be available as needed. Plan DVT prophylaxis - SCDs Code status - full Subjective Date/time seen: 07/08/23 16:36 Interval history: 83yo female with hx of ICH, HTN and DM here for weakness. Patietn is feeling good today. Feels SOB but no cough. SOB better today. No CP or abd pain. No headache. Exam Narrative: AF 97.6 157/87 71 19 100% ra Gen - NARD Chest - CTA bilaterally, nml RR CV - RRR S1/S2. Tele showing sinus bradycardia Abd - Soft, NT/ND, Positive BS Ext - No pedal edema Psych - Nml mood and affect Skin - Warm and dry Objective Data Vital Signs Vital Signs: Vital Signs - 24 hr 07/07/23 16:51 07/07/23 18:23 07/07/23 19:12 Temperature Pulse Rate 55 L 77 125 H Respiratory Rate 18 24 H Blood Pressure 190/104 H 200/114 H Pulse Oximetry 100 100 Oxygen Delivery 07/07/23 19:14 07/07/23 21:32 07/07/23 22:46 Temperature Pulse Rate 113 H 52 L 55 L Respiratory Rate 16 14 Blood Pressure 143/98 H 210/80 H 225/88 H Pulse Oximetry 100 100 Oxygen Delivery 07/07/23 22:46 07/07/23 23:18 07/07/23 23:27 Temperature 97.0 F L Pulse Rate 55 L 60 Respiratory Rate 18 Blood Pressure 209/83 H 208/126 H Pulse Oximetry 98 Oxygen Delivery 07/08/23 00:30 07/07/23 23:00 07/08/23 00:00 Temperature Pulse Rate 56 L Respiratory Rate Blood Pressure 197/92 H Pulse Oximetry Oxygen Delivery Room Air 07/07/23 23:06 07/08/23 01:59 07/08/23 01:59 Temperature Pulse Rate 70 Respiratory Rate Blood Pressure 191/92 H 185/91 H Pulse Oximetry Oxygen Delivery 07/08/23 02:00 07/08/23 03:34 07/08/23 03:
[2023-07-08 17:01] LABS: Glucose Point of Care 123 mg/dl (65-105)
[2023-07-08] MEDS: POTASSIUM CHLORIDE 20 MEQ ER TABLET 40 MEQ PO (17:21)
[2023-07-08] MEDS: MAGNESIUM SULF 2 GM/WATER 50ML 2 GM/50 ML BAG IVPB (17:21)
--- NOTE | 2023-07-08 18:40 | PC.NURSE ---
This patient, Restee Diogenes, was transferred to [[facility]] on 07/08/23 at 1815. Personal belongings sent with patient. Report given to [miranda ]. Appropriate documentation sent with patient.
[2023-07-08 22:12] LABS: Glucose Point of Care 124 mg/dl (65-105)
--- NOTE | 2023-07-08 22:57 | PCRCNOTE ---
Apnea link not preformed, pt too confused to leave test on
[2023-07-09] VITALS (11 sets, daily range): BP systolic 160–208; BP diastolic 71–109; PULSE 42–80; RESP 14–16; TEMP 36.5–36.6; O2SAT 98–100
[2023-07-09] MEDS: SODIUM CHLORIDE 0.9% IV 1,000 ML 75 ML IV CONT (03:09)
[2023-07-09 05:46] LABS: Anion Gap 5 mmol/L (8-16); Blood Urea Nitrogen 11 mg/dL (7-17); Calcium 7.6 mg/dL (8.4-10.2); Carbon Dioxide 22 mmol/L (22-30); Chloride 108 mmol/L (98-107); Estimated CRCL calculation 43 ml/min; Estimated Glomerular Filt Rate > 60; Glucose 105 mg/dL (65-110); Magnesium 2.2 mg/dL (1.6-2.3); Potassium 3.6 mmol/L (3.4-5.0); Sodium 135 mmol/L (137-145)
[2023-07-09 05:57] LABS: Troponin I < 0.012 ng/mL (0.000-0.034)
[2023-07-09 06:26] LABS: Hemoglobin A1C 5.3 % (<5.7)
--- NOTE | 2023-07-09 06:58 | ECHO_ITS ---
Patient Info Name: Dinora Shetty Age: 83 years : 1940 Gender: Female Ht: 65 in Wt: 126 lbs BSA: 1.62 m2 HR: 79 bpm BP: 208 / 109 mmHg Heart Rhythm: Bradycardia Technical Quality: Good Exam Date: 07/09/2023 11:47 AM Exam Location: [facility] Patient Status: Inpatient Admit Date: 07/07/2023 Staff Ordering Physician: Riki Monroe MD Hog Ringer: Ave Rivera RDCS Attending Provider: Sofi Baptiste MD Exam Type: CA echo doppler color flow Study Info Indications - BRADYCARDIA, ekg ABN Complete two-dimensional, color flow and Doppler transthoracic echocardiogram is performed. Summary 1. Complete two-dimensional, color flow and Doppler transthoracic echocardiogram is performed. 2. Normal LV size, moderate severe LVH, normal LV systolic function, ejection fraction about 55-60%. Grade 2 diastolic dysfunction. Normal RV size and systolic function. Normal mitral valve structure, no significant MR. Mild aortic valve sclerosis, mild stenosis, JOCELYN 1.8 cm2. RVSP 23 mmHg. Left Ventricle Left ventricular chamber dimension is normal. Left ventricular systolic function is normal, estimated at 55-60%. There is moderately increased left ventricular wall thickness. The left ventricular diastolic function is grade II diastolic dysfunction. Right Ventricle Right ventricular chamber dimension is normal. Right ventricular systolic function is normal. Left Atria Left atrial chamber dimension is normal. Right Atria Right atrial chamber dimension is normal. Aortic Valve There is mild aortic valve sclerosis. There is mild aortic valve stenosis with a peak velocity of 119 cm/s, mean gradient of 2 mmHg, and aortic valve area of 1.8 cm2. Pulmonic Valve The pulmonic valve is not well visualized. Mitral Valve The mitral valve has normal leaflets. Tricuspid Valve The tricuspid valve leaflets are normal. There is trace tricuspid valve regurgitation. Pericardium/Pleural The pericardium appears epicardial fat pad. Inferior Vena Cava Dilated inferior vena cava with >50% collapse upon inspiration consistent with normal right atrial pressure, 10 mmHg. Aorta The aortic root size at the sinus of Valsalva is normal. Left Ventricular Outflow Tract Name Value Normal LVOT 2D LVOT Diameter 1.8 cm LVOT Doppler LVOT Peak Gradient 2 mmHg LVOT Mean Gradient 1 mmHg LVOT VTI 27 cm LVOT VTI/AV VTI Ratio 0.6 LVOT Stroke Volume 53 ml LVOT CO 2.4 l/min LVOT CI 1.5 l/min/m2 Pulmonic Valve Name Value Normal RVOT Doppler RVOT Peak Gradient 2 mmHg PV Doppler PV Peak Gradient 2 mmHg Mitral Valve
[2023-07-09] MEDS: lisinopriL 20 MG TABLET PO (08:11)
[2023-07-09] MEDS: hydrALAZINE HCL 25 MG TABLET PO ×4 (08:11→20:25)
[2023-07-09 08:34] LABS: Glucose Point of Care 80 mg/dl (65-105)
--- NOTE | 2023-07-09 10:22 | PCSTNOTE ---
Attempted to see pt. for therapy this morning. Pt. was asleep, but would awake to gentle touch. However, pt. was unable to remain awake to participate in therapy. Pt. would become agitated when asked about raising the head of the bed up and participating in therapy.
[2023-07-09 12:15] LABS: Glucose Point of Care 77 mg/dl (65-105)
--- NOTE | 2023-07-09 14:15 | PM.IMPN ---
Progress Note: A&P Assessment and Plan (1) Adult failure to thrive: Code(s): R62.7 - Adult failure to thrive Status: Acute Assessment and Plan: Patient was sent in to the ED by the primary care doctor for weakness. Patient only eats 1 meal a day and she is sleeping more according to the notes in the chart. On evaluation, patient had hypokalemia and markedly elevated blood pressure. CXR clear. CT brain showing no acute findings. EKG does show inverted T waves anterior lateral and inferior which is a change from last year (probably LVH with strain pattern). Troponin negative. She normally walks with a cane. Potassium was replaced. Blood pressure better controlled. Therapy has been ordered. Increase activity as tolerated. Speech therapy felt patient could swallow safely and pureed diet started. She does have bradycardia at times so would consider undiagnosed sleep apnea. She could have central sleep apnea from her history of stroke. Continue supportive care. Apnea link pending. Echo pending. Discussed with who is agreeable for SNF placement. radio communication coordinator notified. (2) Weakness: Code(s): R53.1 - Weakness Status: Acute Assessment and Plan: As above. (3) Hypertension: Code(s): I10 - Essential (primary) hypertension Status: Acute Assessment and Plan: Patient's blood pressure was reviewed on 07/09 Blood pressure elevated on admission and has climbed to 225/88. Hydralazine and Coreg were resumed and Lisinopril added. BP still elevated so Lisinopril advanced. Coreg held this morning due to bradycardia. Decrease Coreg dose and monitor. Will continue to adjust medications as needed. (4) Hypokalemia: Code(s): E87.6 - Hypokalemia Status: Acute Assessment and Plan: Potassium was low on admission and dropped to 2.8. Replacement ordered. Repeat potassium normal. Magnesium is 2.2. Continue to monitor. 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 PT and OT (6) Diabetes: Code(s): E11.9 - Type 2 diabetes mellitus without complications Status: Acute Assessment and Plan: A1c 5.3. The patient's blood glucose was reviewed on 07/09 Glucose remains well controlled. Not on treatment Start AccuCheks covering with sliding scale. Hypoglycemia protocol to be available as needed. Plan DVT prophylaxis - SCDs Code status - full Subjective Date/time seen: 07/09/23 14:15 Interval history: 83yo female with hx of ICH, HTN and DM here for weakness. Patient more somnolent today. She arouses but not able to provide hx today. Review of Systems Review of Systems: ROS unobtainable: Yes unobtainable due to mental status Exam Narrative: AF 97.9 166/80 68 16 98% ra Gen - NARD Chest - clear anteriorly. nml RR CV - RRR S1/S2. Tele showing sinus bradycardia at times Abd - Soft, firmness lower abdomen Ext - No pedal edema Psych - somnolent. arouses easily and speaks a few words Skin - Warm and dry Objective Data Vital Signs Vital Signs: Vital Signs - 24 hr 07/08/23 15:55 07/08/23 16:00 07/08/23 18:00 Temperature 97.6 F Pulse Rate 71 51 L 54 L Respiratory Rate 19 Blood Pressure 157/87 H Pulse Oximetry 100 Oxygen Delivery 07/08/23 20:19 07/08/23 20:00 07/08/23 21:28 Temperature 97.7 F Pulse Rate 69 54 L 88 Respiratory Rate 14 Blood Pressure 162/90 H Pulse Oximetry 100 Oxygen Delivery 07/09/23 00:00 07/09/23 04:00 07/09/23 06:35 Temperature 97.9 F Pulse Rate 80 70 79 Respiratory Rate 16 Blood Pressure 208/109 H Pulse Oximetry 98 Oxygen Delivery 07/09/23 08:00 07/09/23 08:07 07/09/23 08:00 Temperature Pulse Rate 57 L Respiratory Rate Blood Pressure 160/82 H Pulse Oximetry Oxygen Delivery Room
--- NOTE | 2023-07-09 16:41 | ECG_ITS ---
Measurements Intervals [place] Rate: 58 P: 88 IN: 139 QRS: 10 QRSD: 93 T: -73 QT: 428 QTc: 422 Interpretive Statements SINUS BRADYCARDIA ST DEVIATION AND T-WAVE ABNORMALITY, CONSIDER ISCHEMIA Electronically Signed On 07-10-2023 12:56:42 CDT by Maximiliano Perez M.D.
[2023-07-09 17:22] LABS: Glucose Point of Care 80 mg/dl (65-105)
--- NOTE | 2023-07-09 21:06 | PCRCNOTE ---
Py very confused does not want anything on her, not a candidate for apnea link @ this time
[2023-07-09 22:44] LABS: Glucose Point of Care 110 mg/dl (65-105)
[2023-07-10] VITALS (12 sets, daily range): BP systolic 144–191; BP diastolic 70–87; PULSE 51–76; RESP 16–18; TEMP 36.1–36.6; O2SAT 97–100
[2023-07-10 06:38] LABS: Anion Gap 4 mmol/L (8-16); Blood Urea Nitrogen 6 mg/dL (7-17); Carbon Dioxide 27 mmol/L (22-30); Chloride 104 mmol/L (98-107); Estimated CRCL calculation 42 ml/min; Estimated Glomerular Filt Rate > 60; Glucose 86 mg/dL (65-110); Potassium 3.6 mmol/L (3.4-5.0); Sodium 135 mmol/L (137-145)
[2023-07-10 08:57] LABS: Glucose Point of Care 81 mg/dl (65-105)
[2023-07-10] MEDS: lisinopriL 20 MG TABLET PO (09:00)
[2023-07-10] MEDS: hydrALAZINE HCL 50 MG TABLET PO ×3 (09:00→16:57)
--- NOTE | 2023-07-10 10:14 | PM.IMPN ---
Progress Note: A&P Assessment and Plan (1) Adult failure to thrive: Code(s): R62.7 - Adult failure to thrive Status: Acute Assessment and Plan: Patient was sent in to the ED by the primary care doctor for weakness. Patient only eats 1 meal a day and she is sleeping more according to the notes in the chart. On evaluation, patient had hypokalemia and markedly elevated blood pressure. CXR clear. CT brain showing no acute findings. EKG does show inverted T waves anterior lateral and inferior which is a change from last year (probably LVH with strain pattern). Troponin negative. Potassium low and was replaced. Labs otherwise okay. She normally walks with a cane. Therapy has been ordered. Increase activity as tolerated. Speech therapy felt patient could swallow safely and pureed diet started. Only eating 10-40% of meals. Supplements ordered Check B12, Folate, TSH. (2) Weakness: Code(s): R53.1 - Weakness Status: Acute Assessment and Plan: As above. She does have bradycardia at times so would consider undiagnosed sleep apnea. She could have central sleep apnea from her history of stroke. Apnea link pending. Echo pending. Discussed with who is agreeable for SNF placement. real estate closing coordinator notified. Continue supportive care. (3) Hypertension: Code(s): I10 - Essential (primary) hypertension Status: Acute Assessment and Plan: Patient's blood pressure was reviewed on 07/10 Blood pressure elevated on admission and has climbed to 225/88. Hydralazine and Coreg were resumed and Lisinopril added. BP still elevated so Lisinopril advanced but Coreg decreased due to bradycardia. BP still elevaed so will advance Hydralazine. Will continue to adjust medications as needed. (4) Hypokalemia: Code(s): E87.6 - Hypokalemia Status: Acute Assessment and Plan: Potassium was low at 2.8. Replacement ordered. Repeat potassium normal. Magnesium is 2.2. Continue to monitor. 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 Continue PT and OT (6) Diabetes: Code(s): E11.9 - Type 2 diabetes mellitus without complications Status: Acute Assessment and Plan: A1c 5.3. The patient's blood glucose was reviewed on 07/10 Glucose remains well controlled. Not on treatment Continue AccuCheks covering with sliding scale. Hypoglycemia protocol available as needed. Plan DVT prophylaxis - SCDs Code status - full Subjective Date/time seen: 07/10/23 10:14 Interval history: 83yo female with hx of ICH, HTN and DM here for weakness. Patient awake and alert. No Cp or abd pain. No SOB. Eating okay. Exam Narrative: AF 97.5 191/87 60 16 97% ra Gen - NARD Chest - CTA bilaterally, nml RR CV - RRR S1/S2. Tele showing PACs with less bradycardia, Abd - Soft, NT, +BS Ext - No pedal edema Psych - alert and appropriate Skin - Warm and dry. diffuse scaly skin (ichthyosis?). Objective Data Vital Signs Vital Signs: Vital Signs - 24 hr 07/09/23 11:09 07/09/23 12:00 07/09/23 13:13 Temperature Pulse Rate 68 Respiratory Rate Blood Pressure 166/80 H Pulse Oximetry Oxygen Delivery Room Air 07/09/23 13:51 07/09/23 14:00 07/09/23 16:12 Temperature 97.7 F Pulse Rate 59 L 43 L Respiratory Rate 14 Blood Pressure 160/76 H Pulse Oximetry 100 Oxygen Delivery Room Air 07/09/23 20:09 07/09/23 20:35 07/09/23 20:00 Temperature 97.8 F Pulse Rate 59 L 47 L 42 L Respiratory Rate 16 Blood Pressure 195/71 H Pulse Oximetry 99 Oxygen Delivery 07/10/23 00:04 07/10/23 04:54 07/10/23 04:00 Temperature 97.5 F L Pulse Rate 51 L 60 59 L Respiratory Rate 16 Blood Pressure 191/87 H Pulse Oximetry 97 Oxygen Delivery Intake/Output Intake/Output:
[2023-07-10 10:39] LABS: Basophils Percent Auto 1.1 % (0.2-1.2); Eosinophils Absolute Auto 0.1 K/mm3 (0-0.3); Eosinophils Percent Auto 3.7 % (0-4.4); Hematocrit 31.6 % (37.0-47.0); Hemoglobin 9.9 g/dL (12.0-15.0); Immature Granulocyte Absolute 0.01 K/mm3 (0.00-0.031); Immature Granulocyte Percent A 0.3 % (0-0.5); Lymphocytes Absolute Auto 1.76 K/mm3 (0.9-3.2); Lymphocytes Percent Auto 50.1 % (18.3-44.2); Mean Corpuscular HGB Conc 31.3 g/dl (32-36); Mean Corpuscular Hemoglobin 28.1 pg (26-34); Mean Corpuscular Volume 89.8 fl (80-100); Mean Platelet Volume 11.3 fl (7.4-10.4); Monocytes Absolute Auto 0.3 K/mm3 (0.1-0.6); Monocytes Percent Auto 8.3 % (2.6-8.5); Neutrophils Absolute Auto 1.3 K/mm3 (1.3-6.7); Neutrophils Percent Auto 36.5 % (45.5-73.1); Platelet Count Result 180 k/mm3 (150-375); Red Blood Count 3.52 M/mm3 (4.2-5.4); Red Cell Distribution Width 13.2 % (11.5-14.5); White Blood Count 3.5 K/mm3 (4.5-10.0)
[2023-07-10] MEDS: carvediloL 3.125 MG TABLET PO ×2 (10:42→20:16)
[2023-07-10] MEDS: EUCERIN CREAM 120 GM JAR 1 APPLIC TOPICAL (10:42)
[2023-07-10 12:16] LABS: Glucose Point of Care 71 mg/dl (65-105)
[2023-07-10 12:36] LABS: Thyroid Stimulating Hormone Reflex 0.263 uIU/mL (0.465-4.68)
[2023-07-10 13:12] LABS: Folic Acid 7.7 ng/mL (2.76->20)
[2023-07-10 13:39] LABS: Free T4 Free Thyroxine Reflex 1.65 ng/dL (0.78-2.19)
[2023-07-10 16:36] LABS: Total Triiodothyronine (T3) 0.98 NG/ML (0.97-1.69)
[2023-07-10 16:54] LABS: Glucose Point of Care 84 mg/dl (65-105)
[2023-07-10 22:43] LABS: Glucose Point of Care 85 mg/dl (65-105)
[2023-07-11] VITALS (13 sets, daily range): BP systolic 129–185; BP diastolic 64–97; PULSE 44–75; RESP 12–21; TEMP 36.3–36.9; O2SAT 96–100
[2023-07-11 08:11] LABS: Glucose Point of Care 76 mg/dl (65-105)
[2023-07-11] MEDS: hydrALAZINE HCL 50 MG TABLET PO ×3 (09:02→17:14)
[2023-07-11] MEDS: lisinopriL 20 MG TABLET PO (09:02)
[2023-07-11] MEDS: carvediloL 3.125 MG TABLET PO ×2 (09:03→20:14)
[2023-07-11] MEDS: EUCERIN CREAM 120 GM JAR 1 APPLIC TOPICAL (09:04)
[2023-07-11 12:19] LABS: Glucose Point of Care 89 mg/dl (65-105)
--- NOTE | 2023-07-11 12:42 | PCSTNOTE ---
Please refer to the Modified Barium Swallow Evaluation in the EMR.
--- NOTE | 2023-07-11 15:11 | PM.IMPN ---
Progress Note: A&P Assessment and Plan (1) Adult failure to thrive: Code(s): R62.7 - Adult failure to thrive Status: Acute Assessment and Plan: Patient was sent in to the ED by the primary care doctor for weakness. Patient only eats 1 meal a day and she is sleeping more according to the notes in the chart. On evaluation, patient had hypokalemia and markedly elevated blood pressure. CXR clear. CT brain showing no acute findings. B12, Folate normal. TSH 0.26 but normal FT4. EKG does show inverted T waves anterior lateral and inferior which is a change from last year (probably LVH with strain pattern). Troponin negative. Potassium low and was replaced. Labs otherwise okay. She normally walks with a cane. Therapy has been ordered. Increase activity as tolerated. Speech therapy felt patient could swallow safely and pureed diet started. MBS today did show concerns so now on thickened level 3 liquids. Only eating 10-50% of meals. Continue Supplements (2) Weakness: Code(s): R53.1 - Weakness Status: Acute Assessment and Plan: As above. She does have bradycardia at times so would consider undiagnosed sleep apnea. She could have central sleep apnea from her history of stroke. Apnea link pending. Echo with moderate to severe LVH, EF 55-60% and Grade II diastolic dysfunction. Discussed with who is agreeable for SNF placement but now not sure. service learning coordinator working with family about options Continue supportive care. Plan discharge tomorrow. (3) Hypertension: Code(s): I10 - Essential (primary) hypertension Status: Acute Assessment and Plan: Patient's blood pressure was reviewed on 07/11 Blood pressure elevated on admission and climbed to 225/88. Hydralazine and Coreg were resumed and Lisinopril added. BP still elevated so Lisinopril advanced but Coreg decreased due to bradycardia. BP still elevated so Hydralazine advnaaced. Will continue to adjust medications as needed. (4) Hypokalemia: Code(s): E87.6 - Hypokalemia Status: Acute Assessment and Plan: Potassium was low at 2.8. Replacement ordered. Repeat potassium normal. Magnesium is 2.2. Continue to monitor. 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 Continue PT and OT (6) Diabetes: Code(s): E11.9 - Type 2 diabetes mellitus without complications Status: Acute Assessment and Plan: A1c 5.3. The patient's blood glucose was reviewed on 07/11 Glucose remains well controlled. Not on treatment Continue AccuCheks covering with sliding scale. Hypoglycemia protocol available as needed. Plan DVT prophylaxis - SCDs Code status - full Subjective Date/time seen: 07/11/23 15:11 Interval history: 83yo female with hx of ICH, HTN and DM here for weakness. No problems overnight. No CP or abd pain. No SOB or cough. Exam Narrative: AF 97.8 157/79 68 14 100% ra Gen - thin female in NARD Chest - CTA bilaterally, nml RR CV - RRR S1/S2. Tele showing PVCs Abd - Soft, NT, +BS Ext - No pedal edema Psych - alert and appropriate Skin - Warm and dry. diffuse scaly skin Objective Data Vital Signs Vital Signs: Vital Signs - 24 hr 07/10/23 16:56 07/10/23 16:00 07/10/23 19:44 Temperature 97.8 F Pulse Rate 62 58 L 60 Respiratory Rate 16 Blood Pressure 144/70 H 166/75 H Pulse Oximetry 100 Oxygen Delivery 07/10/23 20:16 07/10/23 20:00 07/11/23 00:00 Temperature Pulse Rate 60 58 L 58 L Respiratory Rate Blood Pressure Pulse Oximetry Oxygen Delivery 07/11/23 03:37 07/11/23 04:38 07/11/23 09:01 Temperature 97.3 F L Pulse Rate 59 L 60 70 Respiratory Rate 12 Blood Pressure 129/64 169/97 H Pulse Oximetry 96 Oxygen Delivery 07/11/23 09:03 07/11/23 08:00 07/11/23
[2023-07-11 17:22] LABS: Glucose Point of Care 74 mg/dl (65-105)
[2023-07-11 20:21] LABS: Glucose Point of Care 79 mg/dl (65-105)
[2023-07-12 06:10] VITALS: BP 176/78; PULSE 50; RESP 21; TEMP 37.3; O2SAT 100
--- NOTE | 2023-07-12 08:25 | PM.IMPN ---
Progress Note: A&P Assessment and Plan (1) Adult failure to thrive: Code(s): R62.7 - Adult failure to thrive Status: Acute Assessment and Plan: Patient was sent in to the ED by the primary care doctor for weakness. Patient only eats 1 meal a day and she is sleeping more according to the notes in the chart. On evaluation, patient had hypokalemia and markedly elevated blood pressure. CXR clear. CT brain showing no acute findings. B12, Folate normal. TSH 0.26 but normal FT4. EKG does show inverted T waves anterior lateral and inferior which is a change from last year (probably LVH with strain pattern). Troponin negative. Potassium low and was replaced. Labs otherwise okay. She normally walks with a cane. Therapy was ordered. Increase activity as tolerated. Speech therapy felt patient could swallow safely and pureed diet started. MBS today did show concerns so now on thickened level 3 liquids. Only eating 10-50% of meals. Continue Supplements Okay to discharge - awaiting placement (2) Weakness: Code(s): R53.1 - Weakness Status: Acute Assessment and Plan: As above. She does have bradycardia at times so could be contributing to her weakness. Also considered undiagnosed sleep apnea. Could have central sleep apnea from her history of stroke. Apnea link showing AHI 13.6 and RI 16.2 Echo with moderate to severe LVH, EF 55-60% and Grade II diastolic dysfunction. Discussed with who is agreeable for SNF placement at times but unsure. recreation program coordinator working with family about options and appreciate their efforts Continue supportive care. Plan discharge when discharge plan arranged Plan for formal sleep study after discharge (3) Hypertension: Code(s): I10 - Essential (primary) hypertension Status: Acute Assessment and Plan: Patient's blood pressure was reviewed on 07/12 Blood pressure elevated on admission and climbed to 225/88. Hydralazine and Coreg were resumed and Lisinopril added. BP still elevated so Lisinopril advanced but Coreg decreased due to bradycardia. Hydralazine advanced as well. BP still elevated so Norvasc added. Will continue to adjust medications as needed. (4) Hypokalemia: Code(s): E87.6 - Hypokalemia Status: Acute Assessment and Plan: Potassium was low at 2.8. Replacement ordered. Repeat potassium normal. Magnesium is 2.2. 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 Continue PT and OT (6) Diabetes: Code(s): E11.9 - Type 2 diabetes mellitus without complications Status: Acute Assessment and Plan: A1c 5.3. The patient's blood glucose was reviewed on 07/12 Glucose remains well controlled. Not on treatment Stop AccuCheks. Hypoglycemia protocol available as needed. Plan DVT prophylaxis - SCDs Code status - full Subjective Date/time seen: 07/12/23 08:25 Interval history: 83yo female with hx of ICH, HTN and DM here for weakness. No complaints. No n/v. No Cp or SOB. Has not eaten yet. Exam Narrative: AF 99.2 176/78 50 21 100% ra Gen - thin female in NARD Chest - CTA bilaterally, nml RR CV - RRR S1/S2 Abd - Soft, NT, +BS Ext - No pedal edema Psych - nml mood Skin - Warm and dry. diffuse scaly skin Objective Data Vital Signs Vital Signs: Vital Signs - 24 hr 07/11/23 09:01 07/11/23 09:03 07/11/23 09:00 Temperature Pulse Rate 70 70 Respiratory Rate Blood Pressure 169/97 H Pulse Oximetry Oxygen Delivery Room Air 07/11/23 12:00 07/11/23 13:11 07/11/23 14:00 Temperature 97.8 F Pulse Rate 44 L 72 68 Respiratory Rate 14 Blood Pressure 166/95 H 157/79 H Pulse Oximetry 100 Oxygen Delivery 07/11/23 17:12 07/11/23 20:14 07/11/23 22:48 Temperature 98.5 F Pulse Rate 75 62 62 Respirato
[2023-07-12 08:45] LABS: Glucose Point of Care 76 mg/dl (65-105)
[2023-07-12 09:02] VITALS: PULSE 85
[2023-07-12] MEDS: hydrALAZINE HCL 50 MG TABLET PO ×2 (09:02→18:25)
[2023-07-12] MEDS: carvediloL 3.125 MG TABLET PO (09:02)
[2023-07-12] MEDS: lisinopriL 20 MG TABLET PO (09:02)
[2023-07-12] MEDS: amLODIPine BESYLATE 2.5 MG TABLET PO (09:02)
[2023-07-12] MEDS: EUCERIN CREAM 120 GM JAR 1 APPLIC TOPICAL (09:06)
[2023-07-12 09:07] VITALS: BP 169/86; PULSE 85
--- NOTE | 2023-07-12 10:45 | PCPTNOTE ---
PT attempted to see patient 2x this morning, however patient sleeping soundly and would not arouse to participate in PT. Breathing and RR normal. SPO2 100%, HR:82. RN and TAKER OFF DRYING KILN aware and state patient woke up for a short period of time for breakfast then went back to sleep.
[2023-07-12 13:24] VITALS: BP 129/72; PULSE 55; RESP 16; TEMP 36.2; O2SAT 100
[2023-07-12 13:34] VITALS: BP 129/72
--- NOTE | 2023-07-12 15:55 | PM.DS ---
DS: Admitting Diagnosis Discharge Date 07/12/23 Admitting Diagnosis Weakness DS: Discharge Diagnosis Discharge Diagnosis (1) Adult failure to thrive: Code(s): R62.7 - Adult failure to thrive Status: Acute (2) Weakness: Code(s): R53.1 - Weakness Status: Acute (3) Hypertension: Code(s): I10 - Essential (primary) hypertension Status: Acute (4) Hypokalemia: Code(s): E87.6 - Hypokalemia Status: Acute (5) Intraparenchymal hemorrhage of brain: Code(s): I61.9 - Nontraumatic intracerebral hemorrhage, unspecified Status: Acute (6) Diabetes: Code(s): E11.9 - Type 2 diabetes mellitus without complications Status: Acute DS: Summary Hospital Course Reason for hospitalization: 83yo female with hx of ICH, HTN and DM here for weakness. Please see H&P for details. Hospital Course: Patient was sent in to the ED by the primary care doctor for weakness.? Patient only eats 1 meal a day and she is sleeping more according to the notes in the chart.? On evaluation, patient had hypokalemia and markedly elevated blood pressure.?CXR was clear. CT brain showing no acute findings. B12, Folate normal. TSH 0.26 but normal FT4. EKG does show inverted T waves anterior lateral and inferior which is a change from last year (probably LVH with strain pattern). Troponin negative. Potassium low and was replaced. Labs otherwise okay. She normally walks with a cane.?Therapy was ordered.? Speech therapy felt patient could swallow safely and pureed diet started. MBS did show concerns so now on thickened level 3 liquids. Only eating 10-50% of meals. Supplements ordered. Blood pressure elevated on admission and climbed to 225/88.? Hydralazine and Coreg were resumed and Lisinopril added. BP still elevated so Lisinopril advanced but Coreg decreased due to bradycardia. Hydralazine advanced as well. Bradycardia could be contributing to her weakness. Apnea link showing AHI 13.6 and RI 16.2. Echo showing moderate to severe LVH, EF 55-60% and Grade II diastolic dysfunction. She did well and was accepted at SNF. She was able to be discharged on 07/12/23 Status at Discharge Cognitive/behavioral status at discharge: stable Time Spent with Patient Time attestation: Total time spent providing and/or coordinating discharge services: 34 minutes Time spent: Greater than 30 minutes Exam Narrative: AF 99.2 176/78 50 21 100% ra Gen - thin female in NARD Chest - CTA bilaterally, nml RR CV - RRR S1/S2 Abd - Soft, NT, +BS Ext - No pedal edema Psych - nml mood Skin - Warm and dry. diffuse scaly skin DS: Data Data Completed and Pending Labs on day of discharge: Labs from last 24 hours 07/12/23 07/11/23 07/11/23 08:42 20:18 17:18 POC Capillary Glucose 76 79 74 Discharge Plan Discharge Attending physician on discharge: Riki Monroe Discharging Clinician: Riki Monroe Anticipated Discharge Date/Time: 07/12/23 16:01 Patient Disposition: SNF Activity: as tolerated Diet: regular and other - see discharge instructions Discharge Instructions: Pureed regular diet with Level 3 thickened liquids Check blood pressure 1 to 2 times a day. Record for the doctor's review. Take precautions to avoid falls. Rise slowly from a lying or sitting position. Pause before standing or walking. Contact the doctor if the patient has any lightheadedness with standing or other worrisome symptoms. Avoid NSAIDs (ibuprofen, naproxen, Aleve). Tylenol is safe to take. Follow-up with the provider at the facility. Arrange for outpatient split night sleep study Thank you for using [facility] for your health care needs. Patient Instructions: Failure to Thrive (DC), Hypokalemia (DC), Pain Management (DC) Stand Alone Forms: General Discharge Information Follow-up/Referrals: Clyde Monge MD [Primary Care Provider] - Call for Appointment Discharge Me
[2023-07-12 17:47] LABS: SARS-CoV-2 RNA PCR Negative (Negative)
== END 2023-07-12 18:30 ==
LOC: ANHED 16:46 → ANHIMU 23:20 → ANH2MED 07-11 15:26 → ANHIMU 07-13 09:51
PROVIDERS: Emergency Medicine; Admitting Provider Internal Medicine; Emergency Provider General Practice; PCP Emergency Medicine; Visit Provider Internal Medicine
DX: R62.7 Adult failure to thrive (principal); R53.1 Weakness; I10 Essential (primary) hypertension; E87.6 Hypokalemia; E78.2 Mixed hyperlipidemia; E11.9 Type 2 diabetes mellitus without complications; I61.9 Nontraumatic intracerebral hemorrhage, unspecified; R26.81 Unsteadiness on feet; Z99.89 Dependence on other enabling machines and devices; Z68.1 Body mass index [BMI] 19.9 or less, adult; R94.31 Abnormal electrocardiogram [ECG] [EKG]; I69.359 Hemiplegia and hemiparesis following cerebral infarction affecting unspecified side; I35.0 Nonrheumatic aortic (valve) stenosis; Z20.822 Contact with and (suspected) exposure to COVID-19
CPT/HCPCS: 36415; 70450; 71046; 74019; 80048; 80053; 81001; 82607; 82746; 82948; 83036; 83735; 84132; 84439; 84443; 84480; 84484; 85025; 85055; 87635; 92526; 92610; 92611; 93005; 93306; 94762; 96361; 96365; 96366; 96368; 96374; 96376; 97161; 97165; 97530; 97535; 99285; A9270; G0378; J0360; J3475; J3480; J7030; J7040

== ENCOUNTER 2024-11-01 12:03 | Emergency (ER) | payer MEDICARE, MEDICAID, SELFPAY ==
[2024-11-01] VITALS (24 sets, daily range): BP systolic 151–185; BP diastolic 72–99; PULSE 53–87; RESP 14–20; TEMP 35–36.8; O2SAT 98–100
--- NOTE | ~2024-11-01 | CT_ITS ---
EXAMINATION: CT brain wo con DATE: 11/01/2024 15:16 INDICATION: Altered mental status TECHNIQUE: Computed tomography (CT) of the head was performed without intravenous contrast. Sagittal and coronal reconstructions were performed. The mA was adjusted according to patient size. Iterative reconstruction technique was employed. The dose-length product was 1210.67 mGy-cm. COMPARISON: head CT dated 07/07/2023 FINDINGS: Again seen are regions of encephalomalacia in the left cerebellum and right occipital lobe consistent with sequela of old infarcts. Unchanged smaller old lacunar infarcts at the right cerebellum, left t halamus and bilateral basal ganglia. Additional small region of encephalomalacia in the right parieta l lobe which is new since the prior study consistent with additional infarct. No acute intracranial h emorrhage, acute infarction or abnormal extra axial fluid collection. There is moderate scattered whi te matter hypoattenuation consistent with chronic small vessel ischemic disease. Symmetric prominence of the sulci and ventricles consistent with mild to moderate age-appropriate diffuse cerebral volume loss. No mass/mass effect. Changes of bilateral intraocular lens replacement. The orbits and mastoid air cells are normal. Mild mucosal thickening in the right maxillary and bilateral ethmoid sinuses. IMPRESSION: 1. No acute intracranial process. 2. Chronic infarcts in the bilateral cerebellar hemispheres, right occipital and parietal lobes, left thalamus and bilateral basal ganglia. 3. Age-related changes including mild to moderate diffuse volume loss and moderate scattered white ma tter hypoattenuation consistent with chronic small vessel ischemic disease. Reviewed, dictated and finalized at location A. [facility] [employer] IMPRESSION: 1. No acute intracranial process. 2. Chronic infarcts in the bilateral cerebellar hemispheres, right occipital an d parietal lobes, left thalamus and bilateral basal ganglia. 3. Age-related changes including mild to moderate diffuse volume loss and moder ate scattered white matter hypoattenuation consistent with chronic small vessel ischemic disease.
--- OUTSIDE RECORDS SUMMARY | 2024-11-01 12:05 | XMS_ITS | Referral Summary ---
Author Organization [facility] Address [address] [place] [address] Care Team Providers Care Weld Lay Out Worker Name Role Phone Clyde Monge MD Primary Care Provider [phone] Source Comments [facility],non-owned Affiliates and Associated Physician Practices is amultiple site organization consisting of ambulatory clinics and hospital sitesin [place], [place], [place] and [place]. This disclosure is being madepursuant to the Care Everywhere program and may not contain all information available regarding this patient. Last updated 18.[facility] Allergies No known active allergies Medications * Be aware that medications may not be up to date on this document. Alwaysverify current medications with the patient. Medication Sig Dispensed Refills Start Date End Date Status vitamin D3 (CHOLECALCIFEROL) 1000 UNITS tablet Take by mouth once daily Active insulin aspart (NOVOLOG) cartridge Inject 0-6 Units subcutaneously 3 times daily with meals Low Dose: Correction Insulin BG (mg/dL) Corrective Action LESS than 70 follow Hypoglycemic guidelines, 70-180 NO Correction insulin 181-220 GIVE 2 units of insulin 221-260 GIVE 3 units of insulin 261-300 GIVE 4 units of insulin 301-350 GIVE 5 units of insulin Greater than 350 GIVE 6 units of insulin and Notify Physician 11/24/2018 Active Additional Information Patient not taking.Reported on 04/17/2022 atorvastatin (LIPITOR) 40 MG tabletIndications: Intraparenchymal hemorrhage of brain (HCC) Take 1 (one) tablet by mouth at bedtime 04/19/2022 Active apixaban (ELIQUIS) 5 MG tabletIndications: 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 Take 1 (one) tablet by mouth 2 times daily Reasons: 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 60 tablet 3 05/16/2022 Active carvedilol (COREG) 12.5 MG tablet Take 1 (one) tablet by mouth 2 times daily with morning and evening meal 04/19/2022 Active Active Problems Problem Noted Date Diagnosed Date Hypertensive emergency 04/16/2022 Intraparenchymal hemorrhage of brain 04/16/2022 Hyperlipidemia 04/16/2022 ELVIS (acute kidney injury) 11/23/2018 Rhabdomyolysis /traumatic/due to immobilization 11/23/2018 Hypertension 11/22/2018 Diabetes mellitus 11/22/2018 Atrial fibrillation 11/22/2018 Acute renal insufficiency 11/22/2018 Cerebrovascular accident 11/22/2018 Arterial ischemic stroke, MCA, left, acute 11/22 Immunizations Name Administration Dates Next Due INFLUENZA VACCINE, HIGH-DOSE , QUADR. (FLUZONE HIGH-DOSE QUADRIVALENT; 65Y+), 0.7 ML (HD-IIV4) 11/24/2018 Social History Tobacco Use Types Packs/Day Years Used Date Smoking Tobacco: Never Smokeless Tobacco: Never Alcohol Use Standard Drinks/Week Comments No 0 (1 standard drink = 0.6 oz pur e alcohol) AUDIT-C Answer Date Recorded Q1: How often do you have a drink containing alcohol? Never 04/16/2022 Q2: How many drinks containi ng alcohol do you have on a typical day when you are drinking? Patient does not drink Q3: How often do you have si x or more drinks on one occasion? Never 04/16/2022 PHQ-2 Answer Date Recorded PHQ2 TOTAL SCORE 0 04/19/2022 Hunger Vital Sign Answer Date Recorded Within the past 12 months, y ou worried that your food would run out before you got the money to buy more. Never true 04/17/20 22 Within the past 12 months, t he food you bought just didn't last and you didn't have money to get more. Never true 04/17/2022 Sex and Gender Information Value Date Recorded Sex Assigned at Not on file Gender Identity Not on file Sexual Orientation Not on file Last Filed Vital Signs Vital Sign Reading Time Taken Comments Blood Pressure 145/66 04/19/2022 12:01 PM CDT Pulse 68 04/19/2022 12:01 PM CDT Temperature 36.9 C (98.4 F) 04/19/2022 12:01 PM CDT Respiratory Rate 18 04/19/2022 12:01 PM CDT Oxygen Saturation 99% 04/19/2022 12:01 PM CDT Inhaled Oxygen Concentration - - Weight 70.9 kg (156 lb 6.4 oz) 04/19/2022 4:00 A M CDT Height 175.3 cm (5' 9 ) 11/22/2018 4:48 PM DENTAL RESIDENT Body Mass Index 23.1 11/22/2018 4:48 PM DENTAL RESIDENT Functional Status Functional Status Response Date of Assess ment Is person deaf or have serious hearing difficult y? No 04/19/2022 Is person blind or have serious difficulty seein g? No 04/19/2022 Does person have serious dif ficulty walking/climbing stairs? Yes 04/19/2022 Does person have difficulty dressing/bathing? Ye s 04/19/2022 Does person have difficulty doing errands alone? Yes 04/19/2022 Cognitive Status Response Date of Assessm ent Does person have difficulty concentrating/remembering/making decisions? No 04/19/2022 Plan of Treatment Not on file Procedures Procedure Name Priority Date/Time Associated Diagnosis Comments BASIC METABOLIC PANEL (CALCIUM TOTAL) Routine 04/19/2022 2:23 AM CDT Intraparenchymal hemorrhage of brain (HCC) HEMOGLOBIN A1C Routine 04/18/2022 12:31 AM CDT Intraparenchymal hemorrhage of brain (HCC) from Last 3 Months or Most Recently Relevant to Health Maintenance Results * (ABNORMAL) BASIC METABOLIC PANEL (CALCIUM TOTAL) (04/19/2022 2:23 AM CDT) BUN 16 7 - 26 mg/dL 04/19/2022 3:04 AM [facility] Creatinine 0.97(H) 0.56 - 0.96 mg/dL 04/19/2022 3:04 AM [facility] Sodium 142 136 - 145 mmol/L 04/19/2022 3:04 AM [facility] Potassium 3.2(L) 3.5 - 4.5 mmol/L 04/19/2022 3:04 AM CDT [facility] Chloride 109(H) 98 - 107 mmol/L 04/19/2022 3:04 AM [facility] CO2 24 22 - 29 mmol/L 04/19/2022 3:04 AM [facility] Glucose 96 70 - 115 mg/dL 04/19/2022 3:04 AM [facility] Calcium 8.2(L) 8.4 - 10.2 mg/dL 04/19/2022 3:04 AM [facility] Anion Gap 12 8 - 18 04/19/2022 3:04 AM [facility] BUN/Creatinine Ratio 16 7 - 23 04/19/2022 3:04 AM [facility] Osmolality Calculated 295 270 - 300 mOsm/kg 04/19/2022 3:04 AM [facility] eGFR by CKD-EPI 59(L) >=90 mL/min/1.7 3 m2 04/19/2022 3:04 AM [facility] Blood BLOOD SPECIMEN / Unknown Lab Venipuncture / Unknown 04/19/2022 2:23 AM CDT 04/19/2022 2:40 AM CDT Vijay Garcia MD LAB - CHEMISTRY MONTE[facility] Organization Address City/State/ZIP Co de Phone Number [facility] [address] [place] [id number], [facility] [phone] * (ABNORMAL) HEMOGLOBIN A1C (04/18/2022 12:31 AM CDT) Hemoglobin A1c 6.2(H) <=5.6 % 04/18/2022 3:45 PM [facility] Estimated Average Glucose 131 mg/dL 04/18/2022 3:45 PM [facility] Comment: HbA1c Interpretation: Normal : < 5.7% Pre-diabetes: 5.7-6.4% Diabetes: Equal to or greater than 6.5% Test results diagnostic of diabetes should be repeated for confirmation. Treatment target values recommended by ADA and other clinical organizations should be used to evaluate metabolic control in patients. Reference: [place] [employer], Standards of Care in Diabetes -2020 In patients 70 years and older consider HbA1c target range of 7.0-7.5% (Reference: Esau Lee et al. VINCE. 2012) The Sebia assay for the measurement of HbA1c is a National Glycohemoglobin Standardization Program (NGSP) certified method. Blood BLOOD SPECIMEN / Unknown Venipuncture / Unknown 04/18/2022 12:31 AM CDT 04/18/2022 12:44 AM CDT Vijay Garcia MD LAB - CHEMISTRY [facility]TE[facility] Organization Address City/State/ZIP Co de Phone Number [facility] [address] [place] [address], [facility] [phone] from Last 3 Months or Most Recently Relevant to Health Maintenance Advance Directives * Full Code (Latest Code Status on File) Date Activated Date Inactivated Comments 04/16/2022 12:06 AM 04/19/2022 3:36 PM * Full Code Date Activated Date Inactivated Comments 11/22/2018 9:21 AM 11/24/2018 6:11 PM Care Teams Weld Lay Out Worker Relationship Specialty Start Date End Date Clyde Monge MD [address] [place] [address] PCP - General Family Medicine 04/16/22
--- OUTSIDE RECORDS SUMMARY | 2024-11-01 12:05 | XMS_ITS | Clinical Summary ---
Author Organization [facility] Address [address] [place] [address] Care Team Providers Care Paralegal Assistant Name Role Phone Clyde Monge MD Primary Care Provider Source Comments [facility]non-owned Affiliates and Associated Physician Practices is amultiple site organization consisting of ambulatory clinics and hospital sitesin [place], [place], [place] and [place]. This disclosure is being madepursuant to the Care Everywhere program and may not contain all information available regarding this patient. Last updated 18.[facility] 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 Plan of Treatment Health Maintenance Due Date Last Done Comments BONE DENSITY TESTING 1941 MEDICARE AWV 12 MONTHS 1941 DTAP/TDAP/TD VACCINES (1 - Tdap) 1960 PNEUMOCOCCAL VACCINE 50+ (1 of 2 - PCV) 1960 ZOSTER VACCINE (1 of 2) 1991 Respiratory Syncytial Virus (RSV) Vaccine Pt: or over 60 yrs (1 - 1-dose 75+ series) 2016 DIABETES RETINOPATHY SCREENING 11/22/2018 DIABETES-FOOT EXAM WITH MONOFILAMENT 11/22/2018 DIABETES-HGB A1C 10/19/2022 04/18/2022, 11/22/2018 DIABETES-SERUM CREATININE 04/19/20232021, 04/18/2022, 04/15/2022, Additional history exists COVID-19 VACCINE ( - 2023- season) 2024 INFLUENZA VACCINE (#1) 2024 11/24/2018 DEPRESSION SCREENING 09/26/2024 04/15/2022 DIABETES - URINE PROTEIN SCREENING 09/26/2024 HEPATITIS B VACCINE Aged Out No longe r eligible based on patient's age to complete this topic HIB VACCINE Aged Out No longer eligi ble based on patient's age to complete this topic HPV VACCINE Aged Out No longer eligi ble based on patient's age to complete this topic MENINGOCOCCAL (Group B) VACCINE Aged Out No longer eligible based on patient's age to complete this topic MENINGOCOCCAL VACCINE Aged Out No destiny cornelius eligible based on patient's age to complete this topic Procedures Procedure Name Priority Date/Time Associated Diagnosis Comments BASIC METABOLIC PANEL (CALCIUM TOTAL) Routine 04/19/2022 2:23 AM CDT Intraparenchymal hemorrhage of brain (HCC) HEMOGLOBIN A1C Routine 04/18/2022 12:31 AM T Intraparenchymal hemorrhage of brain (HCC) from Last 3 Months or Most Recently Relevant to Health Maintenance Results * (ABNORMAL) BASIC METABOLIC PANEL (CALCIUM TOTAL) (04/19/2022 2:23 AM CDT) BUN 16 7 - 26 mg/dL 04/19/2022 3:04 AM [facility] Creatinine 0.97(H) 0.56 - 0.96 mg/dL 04/19/2022 3:04 AM [facility] Sodium 142 136 - 145 mmol/L 04/19/2022 3:04 AM [facility] Potassium 3.2(L) 3.5 - 4.5 mmol/L 04/19/2022 3:04 AM [facility] Chloride 109(H) 98 - 107 mmol/L 04/19/2022 3:04 AM [facility] CO2 24 22 - 29 mmol/L 04/19/2022 3:04 AM [facility] Glucose 96 70 - 115 mg/dL 04/19/2022 3:04 AM [facility] Calcium 8.2(L) 8.4 - 10.2 mg/dL 04/19/2022 3:04 AM [facility] Anion Gap 12 8 - 18 04/19/2022 3:04 AM [facility] BUN/Creatinine Ratio 16 7 - 23 04/19/2022 3:04 AM [facility] Osmolality Calculated 295 270 - 300 mOsm/kg 04/19/2022 3:04 AM [facility] eGFR by CKD-EPI 59(L) >=90 mL/min/1.7 3 m2 04/19/2022 3:04 AM [facility] Blood BLOOD SPECIMEN / Unknown Lab Venipuncture / Unknown 04/19/2022 2:23 AM CDT 04/19/2022 2:40 AM T Vijay Garcia MD LAB - CHEMISTRY [facility] [address] [place] [address], [facility] [phone] * (ABNORMAL) HEMOGLOBIN A1C (04/18/2022 12:31 AM CDT) Hemoglobin A1c 6.2(H) <=5.6 % 04/18/2022 3:45 PM CDT [facility] Estimated Average Glucose 131 mg/dL 04/18/2022 3:45 PM CDT [facility] Comment: HbA1c Interpretation: Normal : < 5.7% Pre-diabetes: 5.7-6.4% Diabetes: Equal to or greater than 6.5% Test results diagnostic of diabetes should be repeated for confirmation. Treatment target values recommended by ADA and other clinical organizations should be used to evaluate metabolic control in patients. Reference: [place] [employer] Association, Standards of Care in Diabetes -2020 In patients 70 years and older consider HbA1c target range of 7.0-7.5% (Reference: Esau Lee, et al. JAMDA. 2012) The Sebia assay for the measurement of HbA1c is a National Glycohemoglobin Standardization Program (NGSP) certified method. Blood BLOOD SPECIMEN / Unknown Venipuncture / Unknown 04/18/2022 12:31 AM CDT 04/18/2022 12:44 AM CDT Vijay Garcia MD LAB - CHEMISTRY [facility] [address] [place] [address], [facility] [phone] from Last 3 Months or Most Recently Relevant to Health Maintenance Advance Directives * Full Code (Latest Code Status on File) Date Activated Date Inactivated Comments 04/16/2022 12:06 AM 04/19/2022 3:36 PM * Full Code Date Activated Date Inactivated Comments 11/22/2018 9:21 AM 11/24/2018 6:11 PM Care Teams Paralegal Assistant Relationship Specialty Start Date End Date Clyde Monge MD [address] [place] [address] PCP - General Family Medicine 04/16/22
--- OUTSIDE RECORDS SUMMARY | 2024-11-01 12:05 | XMS_ITS ---
Author Organization [facility] Address Unknown Medications Medication Dose Frequency Directions Start Date End Ildefonso e Citroma Solution 1.745 GM/30ML 296 mL Give 296 ml by mouth as needed for constipation In AM if no results after enema. If no results within 1 hour of completion of bowel protocol, contact MD immediately for further orders. 07/13/2023 Carvedilol Oral Tablet 3.125 MG 1 {tbl} 24 h Give 1 tablet by karlo th one time a day related to UNSPECIFIED ATRIAL FIBRILLATION (I48.91) 07/14/2023 hydrALAZINE HCl Oral Tablet 50 MG 1 {tbl} 8 h Give 1 tablet by karlo th three times a day related to ESSENTIAL (PRIMARY) HYPERTENSION (I10) HOld if SBP is less than 110 07/13/2023 Fleet Enema 1 Insert 1 applic ation rectally as needed for for constipation If no results 1 day after suppository. 07/13/2023 Milk of Magnesia Suspension 400 MG/5ML 30 mL Give 30 ml by mout h as needed for Constipation at bedtime if not BM in 3 days 07/13/2023 Bisacodyl Suppository 10 MG 1 Insert 1 suppository rectally as needed for for constipation daily if no results for MOM 07/13/2023 Minerin Creme External Cream Apply to skin topica lly at bedtime for dryskin related to OTHER SYMPTOMS AND SIGNS INVOLVING COGNITIVE FUNCTIONS AND AWARENESS (R41.89) discontinue when healed 07/14/2023 Acetaminophen Tablet 325 MG 2 {tbl} Give 2 tablet by karlo th every 4 hours as needed for Mild Pain, NTE 3 Grams in 24 hours Non-Pharm Interventions-1=music, aromatherapy, light touch/massage2=Reminisc ence,reality orientation, validation therapy3=exercise, activities4=1:1 interaction, pet therapy5=Reduced stimulation, quiet area 07/13/2023 Acetaminophen Tablet 325 MG 2 {tbl} Give 2 tablet by karlo th every 4 hours as needed for Temp 100F or above 07/13/2023 Lisinopril Oral Tablet 20 MG 1 {tbl} 24 h Give 1 tablet by karlo th one time a day for Elevated Blood Pressure Hold if SBP <110 07/14/2023 Medications Administered Medication Dose Frequency Status Start Date End Date Citroma Solution 1.745 GM/30ML 296 mL 07/13/2023 Carvedilol Oral Tablet 3.125 MG 1 {tbl} 24 h 09/02/2023 hydrALAZINE HCl Oral Tablet 50 MG 1 {tbl} 8 h 09/05/2023 Fleet Enema 1 07/13/2023 Milk of Magnesia Suspension 400 MG/5ML 30 mL 07/13/2023 Bisacodyl Suppository 10 MG 1 Minerin Creme External Cream 1 11/06/2022 Acetaminophen Tablet 325 MG 2 {tbl} Acetaminophen Tablet 325 MG 2 {tbl} Lisinopril Oral Tablet 20 MG 1 {tbl} 24 h 1 11/03/2022 Problems Problem Status Start Date End Date UNSPECIFIED 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) (I69.90 - ICD-10-CM) ACTIVE 07/12/2023 NONTRAUMATIC INTRACEREBRAL H EMORRHAGE IN HEMISPHERE, SUBCORTICAL (Primary) (I61.0 - ICD-10-CM) RESOLVED 05/15/2021 06/25/2021 COVID-19 (U07.1 - ICD-10-CM) ACTIVE 08/16/2023 HEMIPLEGIA AND HEMIPARESIS F OLLOWING NONTRAUMATIC INTRACEREBRAL HEMORRHAGE AFFECTING RIGHT DOMINANT SIDE (I69.151 - ICD-10-CM) RESOLVED 05/15/2021 06/25/2021 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 - ICD-10-CM) ACTIVE 07/12/2023 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) RESOLVED 05/15/2021 06/25/2021 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) ACTIVE 07/12/2023 DYSARTHRIA FOLLOWING NONTRAU MATIC INTRACEREBRAL HEMORRHAGE (I69.122 - ICD-10-CM) RESOLVED 05/15/2021 021 HEMIPLEGIA AND HEMIPARESIS F OLLOWING NONTRAUMATIC INTRACEREBRAL HEMORRHAGE AFFECTING RIGHT DOMINANT SIDE (I69.151 - ICD-10-CM) ACTIVE 07/12/2023 CONSTIPATION, UNSPECIFIED (K59.00 - ICD-10-CM) RESOLVE D 05/15/2021 06/25/2021 HYPOKALEMIA (E87.6 - ICD-10-CM) ACTIVE UNSPECIFIED ATRIAL FIBRILLATION (I48.91 - ICD-10-CM) R ESOLVED 05/15/2021 06/25/2021 ESSENTIAL (PRIMARY) HYPERTENSION (I10 - ICD-10-CM) ACT BEBO 07/12/2023 PERSONAL HISTORY OF TRANSIEN T ISCHEMIC ATTACK (TIA), AND CEREBRAL INFARCTION WITHOUT RESIDUAL DEFICITS (Z86.73 - ICD-10-CM) RESOLVED 05/15/2021 06/25/2021 WEAKNESS (R53.1 - ICD-10-CM) ACTIVE 07/12/2023 ESSENTIAL (PRIMARY) HYPERTENSION (I10 - ICD-10-CM) RES OLVED 05/15/2021 06/25/2021 UNSPECIFIED ATRIAL FIBRILLATION (I48.91 - ICD-10-CM) A CTIVE 07/12/2023 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 - ICD-10-CM) RESOLVED 05/15/2021 06/25/2021 CEREBRAL ATHEROSCLEROSIS (I67.2 - ICD-10-CM) ACTIVE 07/12/2023 COVID-19 (U07.1 - ICD-10-CM) RESOLVED 05/31/2021 06/10/2021 PERSONAL HISTORY OF TRANSIEN T ISCHEMIC ATTACK (TIA), AND CEREBRAL INFARCTION WITHOUT RESIDUAL DEFICITS (Z86.73 - ICD-10-CM) ACTIVE 07/12/2023 SPONDYLOSIS WITHOUT MYELOPAT HY OR RADICULOPATHY, 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) ACTIVE 07/12/2023 MUSCLE WEAKNESS (GENERALIZED) (M62.81 - ICD-10-CM) ACT BEBO 07/12/2023 MUSCLE WEAKNESS (GENERALIZED) (M62.81 - ICD-10-CM) RES OLVED 05/15/2021 06/25/2021 MUSCLE WASTING AND ATROPHY, NOT ELSEWHERE CLASSIFIED, UNSPECIFIED SITE (M62.50 - ICD-10-CM) ACTIVE 08/19/2023 DIFFICULTY IN WALKING, NOT E LSEWHERE CLASSIFIED (R26.2 - ICD-10-CM) RESOLVED 05/15/2021 06/25/2021 ADULT FAILURE TO THRIVE (R62.7 - ICD-10-CM) ACTIVE 07/12/2023 FRONTAL LOBE AND EXECUTIVE F UNCTION DEFICIT (R41.844 - ICD-10-CM) RESOLVED 05/15/2021 06/25/2021 OTHER SYMPTOMS AND SIGNS INV OLVING COGNITIVE FUNCTIONS AND AWARENESS (R41.89 - ICD-10-CM) RESOLVED 05/15/202106/25 OTHER ABNORMALITIES OF GAIT AND MOBILITY (R26.89 - ICD-10-CM) ACTIVE 08/13/2023 OTHER MALAISE (R53.81 - ICD-10-CM) ACTIVE 2022 OTHER FATIGUE (R53.83 - ICD-10-CM) ACTIVE 2022 NEED FOR ASSISTANCE WITH PER PASHA CARE (Z74.1 - ICD-10-CM) ACTIVE 07/12/2023 DYSPHAGIA, OROPHARYNGEAL PHASE (R13.12 - ICD-10-CM) AC TIVE 07/12/2023 OTHER SEQUELAE OF CEREBRAL I NFARCTION (I69.398 - ICD-10-CM) RESOLVED 07/12/2023 07/12/2023 Results * CBC W/DIFF Performed by: [address], [place] [id number] Component Value Range Date HEMOGLOBIN 9.5 g/dL 12.0-16.0 07/14/2023 05:5 6 pm EDT * CMP-COMPREHENSIVE METABOLIC PNL Performed by: [address], [address] [address] Component Value Range Date BUN (UREA NITROGEN) 12 mg/dL 7-25 07/14/20 23 05:56 pm EDT CARBON DIOXIDE (CO2) 26 mEq/L 21-33 023 05:56 pm EDT * CBC W/DIFF Performed by: [address], [place] [id number] Component Value Range Date MCH 28.2 pg 26.0-35.0 07/14/2023 05:5 6 pm EDT HEMATOCRIT 28.7 % 36.0-48.0 07/14/2023 05:5 6 pm EDT * CMP-COMPREHENSIVE METABOLIC PNL Performed by: [address], [place] [id number] Component Value Range Date CHLORIDE 102 mEq/L 98-110 07/14/2023 05:5 6 pm EDT POTASSIUM 3.6 mEq/L 3.5-5.3 07/14/2023 05:5 6 pm EDT SODIUM 137 mEq/L 136-145 07/14/2023 05:5 6 pm EDT XIC-RSF-WDHBYYB 60 mL/min/1.73 m2 >60 07/14/2023 05:56 pm EDT GFR- 73 mL/min/1.73 m2 >60 05:56 pm EDT * CBC W/DIFF Performed by: [address], [place] [id number] Component Value Range Date RDW 14.3 % 11.0-16.0 07/14/2023 05:5 6 pm EDT NEUTROPHILS 40.9 % 40.0-80.0 07/14/2023 05:5 6 pm EDT RBC 3.36 M/cmm 3.90-5.40 07/14/2023 05:5 6 pm EDT MCHC 33.0 g/dL 31.0-36.5 07/14/2023 05:5 6 pm EDT PLATELET 178 K/cmm 150-450 07/14/2023 05:5 6 pm EDT * CMP-COMPREHENSIVE METABOLIC PNL Performed by: [address], [place] [id number] Component Value Range Date AST (SGOT) 15 IU/L 4-40 07/14/2023 05:5 6 pm EDT ALBUMIN 2.8 g/dL 3.5-5.5 07/14/2023 05:5 6 pm EDT PROTEIN, TOTAL 6.6 g/dL 6.0-8.3 07/14/2023 05 :56 pm EDT ALKALINE PHOS 68 IU/L 34-136 07/14/2023 05: 56 pm EDT * CBC W/DIFF Performed by: [address], [address] [address] Component Value Range Date WBC 4.6 K/cmm 4.5-10.8 07/14/2023 05:5 6 pm EDT * CMP-COMPREHENSIVE METABOLIC PNL Performed by: [address], [address] [address] Component Value Range Date ALT (SGPT) 9 IU/L 4-55 07/14/2023 05:5 6 pm EDT * Individual Tests: CMP-COMPREHENSIVE METABOLIC PNL / GLYCO-HGBA1C / CBC W/DIFF / TSH 3-UL / T4, FREE/ VITAMIN D 25-OH TOTAL Performed by: [address], [address] [address] Component Value Range Date TSH 3-UL 0.393 uIU/mL 0.340-5.500 07/14/2023 05:5 6 pm EDT * CBC W/DIFF Performed by: [address], [address] [address] Component Value Range Date MONOCYTES (ABSOLUTE) 0.40 K/uL 0.15-1.10 023 05:56 pm EDT * CMP-COMPREHENSIVE METABOLIC PNL Performed by: [address], [address] [address] Component Value Range Date BUN/CREATININE RATIO 13 6-25 023 05:56 pm EDT A/G RATIO 0.7 0.8-2.0 07/14/2023 05:5 6 pm EDT * GLYCO-HGBA1C Performed by: [address], [address] [address] Component Value Range Date GLYCOHEMOGLOBIN-HGBA1C 5.5 % 4.1-6.1 07/14 05:56 pm EDT * CMP-COMPREHENSIVE METABOLIC PNL Performed by: [address], [address] [address] Component Value Range Date CALCIUM 8.3 mg/dL 8.6-10.3 07/14/2023 05:5 6 pm EDT BILIRUBIN, TOTAL 0.4 mg/dL 0.2-1.2 07/14/2023 05:56 pm EDT * Individual Tests: CMP-COMPREHENSIVE METABOLIC PNL / GLYCO-HGBA1C / CBC W/DIFF / TSH 3-UL / T4, FREE/ VITAMIN D 25-OH TOTAL Performed by: [address], [place] [address] Component Value Range Date T4, FREE 1.19 ng/dL 0.6-1.7 07/14/2023 05:5 6 pm EDT * CMP-COMPREHENSIVE METABOLIC PNL Performed by: [address], [place] [id number] Component Value Range Date CREATININE 0.9 mg/dL 0.6-1.2 07/14/2023 05:5 6 pm EDT GLUCOSE 76 mg/dL 07/14/2023 05:5 6 pm EDT * CBC W/DIFF Performed by: [address], [place] [id number] Component Value Range Date NEUTS (ABSOLUTE) 1.90 K/uL 1.50-7.60 07/14/2023 05:56 pm EDT EOS (ABSOLUTE) 0.10 K/uL 0.20-0.80 07/14/2023 05 :56 pm EDT BASO 0.9 % 0.0-2.0 07/14/2023 05:5 6 pm EDT EOS 2.0 % 0.0-8.0 07/14/2023 05:5 6 pm EDT MONOCYTES 9.5 % 2.0-12.0 07/14/2023 05:5 6 pm EDT LYMPHS 46.7 % 13.0-48.0 07/14/2023 05:5 6 pm EDT MCV 85.4 fL 80.0-100.0 07/14/2023 05:5 6 pm EDT LYMPHS (ABSOLUTE) 2.10 K/uL 0.90-5.50 07/14/2023 05:56 pm EDT * GLYCO-HGBA1C Performed by: [address], [place] [address] Component Value Range Date eAG (Mean Glucose) 111 mg/dL <136 05:56 pm EDT * CBC W/DIFF Performed by: [place] [address] [facility] [address], [address] [address] Component Value Range Date MPV 8.8 fL 6.5-12.0 07/14/2023 05:5 6 pm EDT NUCLEATED RBC 0.1 NRBC/100 WBC <1.0 07/14/2023 05:56 pm EDT * Individual Tests: CMP-COMPREHENSIVE METABOLIC PNL / GLYCO-HGBA1C / CBC W/DIFF / TSH 3-UL / T4, FREE/ VITAMIN D 25-OH TOTAL Performed by: [place] [address] [facility] [address], [address] [address] Component Value Range Date VITAMIN D 25-OH TOTAL 22 ng/mL 30-100 2022 05:56 pm EDT * 2019 NOVEL CORONAVIRUS, TIMOTEO Performed by: [id number] [facility] [address] [address], [address] [place] [address] Component Value Range Date 2018 NOVEL CORONAVIRUS, TIMOTEO NOT DETECTED NOT DETECTED 06/24/2021 01:23 pm EDT 2019 NOVEL CORONAVIRUS, TIMOTEO See Attachment 06/24/2021 01:23 pm EDT * 2019 NOVEL CORONAVIRUS, TIMOTEO Performed by: [id number] [facility] [address] [address], [address] [place] [address] Component Value Range Date 2018 NOVEL CORONAVIRUS, TIMOTEO DETECTED NOT DETECTED 06/13/2021 07:17 pm EDT 2019 NOVEL CORONAVIRUS, TIMOTEO See Attachment 06/13/2021 07:17 pm EDT * GLYCO-HGBA1C Performed by: [place], [place] [address] [facility] [address] [facility] [address] Component Value Range Date eAG (Mean Glucose) 146 mg/dL 70-120 04:08 pm EDT GLYCOHEMOGLOBIN-HGBA1C 6.7 % 4.1-6.1 06/04 04:08 pm EDT * 2019 NOVEL CORONAVIRUS, TIMOTEO Performed by: [id number] [facility] [address] [address], [address] [place] [address] Component Value Range Date 2018 NOVEL CORONAVIRUS, TIMOTEO NOT DETECTED NOT DETECTED 06/03/2021 09:34 pm EDT 2019 NOVEL CORONAVIRUS, TIMOTEO See Attachment 06/03/2021 09:34 pm EDT * 2019 NOVEL CORONAVIRUS, TIMOTEO Performed by: [id number] [facility] [address], [address] [facility] [address] Component Value Range Date 2019 NOVEL CORONAVIRUS, TIMOTEO NOT DETECTED NOT DETECTED 05/26/2021 10:27 pm EDT 2019 NOVEL CORONAVIRUS, TIMOTEO See Attachment 05/26/2021 10:27 pm EDT * JESSICA SARS-COV-2 Performed by: [id number] [facility] [address], [address] [place] [address] Component Value Range Date JESSICA SARS-COV-2 NOT DETECTED NOT DETECTED 05/21/2021 07:55 pm EDT JESSICA SARS-COV-2 See Attachment 05/21/20 07:55 pm EDT * CBC W/DIFF Performed by: [address] [address] Component Value Range Date HEMOGLOBIN 10.8 g/dL 12.0-16.0 05/18/2021 08:3 3 pm EDT * BASIC MET PNL INCL GFR (BMP) Performed by: [address] [address] Component Value Range Date SODIUM 143 mEq/L 136-145 05/18/2021 08:3 3 pm EDT BUN (UREA NITROGEN) 16 mg/dL 7-25 05/18/20 21 08:33 pm EDT POTASSIUM 3.9 mEq/L 3.5-5.3 05/18/2021 08:3 3 pm EDT CARBON DIOXIDE (CO2) 28 mEq/L 21-33 021 08:33 pm EDT CHLORIDE 105 mEq/L 98-110 05/18/2021 08:3 3 pm EDT * CBC W/DIFF Performed by: [address] [address] Component Value Range Date MCHC 33.1 g/dL 31.0-36.5 05/18/2021 08:3 3 pm EDT MCH 29.2 pg 26.0-35.0 05/18/2021 08:3 3 pm EDT HEMATOCRIT 32.6 % 36.0-48.0 05/18/2021 08:3 3 pm EDT WBC 6.0 K/cmm 4.5-10.8 05/18/2021 08:3 3 pm EDT PLATELET 192 K/cmm 150-450 05/18/2021 08:3 3 pm EDT RBC 3.69 M/cmm 3.90-5.40 05/18/2021 08:3 3 pm EDT RDW 14.8 % 11.0-16.0 05/18/2021 08:3 3 pm EDT NEUTROPHILS 48.2 % 40.0-80.0 05/18/2021 08:3 3 pm EDT BASO (ABSOLUTE) 0.10 K/uL 0.00-0.30 05/18/2021 0 8:33 pm EDT * BASIC MET PNL INCL GFR (BMP) Performed by: [address] [address] Component Value Range Date XXY-AEV-REYVWOD 39 mL/min/1.73 m2 >60 05/18/2021 08:33 pm EDT GFR- 48 mL/min/1.73 m2 >60 08:33 pm EDT * CBC W/DIFF Performed by: [address] [address] Component Value Range Date MCV 88.4 fL 80.0-100.0 05/18/2021 08:3 3 pm EDT LYMPHS (ABSOLUTE) 2.00 K/uL 0.90-5.50 05/18/2021 08:33 pm EDT MONOCYTES 9.5 % 2.0-12.0 05/18/2021 08:3 3 pm EDT LYMPHS 33.1 % 13.0-48.0 05/18/2021 08:3 3 pm EDT BASO 1.0 % 0.0-2.0 05/18/2021 08:3 3 pm EDT EOS 8.2 % 0.0-8.0 05/18/2021 08:3 3 pm EDT NEUTS (ABSOLUTE) 2.90 K/uL 1.50-7.60 05/18/2021 08:33 pm EDT * BASIC MET PNL INCL GFR (BMP) Performed by: [address] [place] [address] Component Value Range Date BUN/CREATININE RATIO 12 6-34 08:33 pm EDT * CBC W/DIFF Performed by: [address] [address] Component Value Range Date EOS (ABSOLUTE) 0.50 K/uL 0.20-0.80 05/18/2021 08 :33 pm EDT MONOCYTES (ABSOLUTE) 0.60 K/uL 0.15-1.10 08:33 pm EDT NUCLEATED RBC 0.1 NRBC/100 WBC <1.0 05/18/2021 08:33 pm EDT * BASIC MET PNL INCL GFR (BMP) Performed by: [place] [id number] Component Value Range Date CREATININE 1.3 mg/dL 0.6-1.3 05/18/2021 08:3 3 pm EDT GLUCOSE 121 05/18/2021 08:3 3 pm EDT CALCIUM 8.5 mg/dL 8.4-10.2 05/18/2021 08:3 3 pm EDT * CBC W/DIFF Performed by: [place] [id number] Component Value Range Date MPV 9.0 fL 6.5-12.0 05/18/2021 08:3 3 pm EDT Encounters Encounter Performer Performer Role Encounter Diagnoses Location Date Discharge - Discharged to home or self care - Home with Family - Private home/apt. with no home health services [facility] 05/15/2021 09:11 pm EDT - 06/25/2021 03:00 pm EDT Discharge - Discharged / Transferred to SNF - Other - long-term [facility] 07/12/2023 08:08 pm EDT - 08/26/2023 01:01 am EST Advance Directives Directive Description Verification Advance Directive:Full Code Cardiopulmonary Resu scitation Immunizations Vaccine Date Flucelvax (Influenza vaccine) 07/15/2023 01:00 am EDT Social History
--- OUTSIDE RECORDS SUMMARY | 2024-11-01 12:05 | XMS_ITS | Continuity of Care Document ---
Author Organization [facility] Address [address] [place] [address] [place] [address] Phone Care Team Providers Care Economic Manager Name Role Phone Clyde Monge MD Unavailable Unavailable Allergies, Adverse Reactions, Alerts Substance Reaction Status Criticality No Known Allergies Active No Inform ation Medications Medication Instructions Dosage Effective Dates (start - stop) Status Comments Coreg 6.25 mg tablet take 1 Tablet by or al route 2 times every day with food 6.25 MG - Active hydralazine 25 mg tablet take 1 tablet by oral route 4 times every day with food 25 MG - Active Procedures Procedure Date OFFICE/OUTPATIENT VISIT, EST PREV VISIT, EST, 65 & OVER OFFICE/OUTPATIENT VISIT, EST OFFICE/OUTPATIENT VISIT, EST OFFICE/OUTPATIENT VISIT, EST OFFICE/OUTPATIENT VISIT, EST OFFICE/OUTPATIENT VISIT, EST PPPS, subseq visit OFFICE/OUTPATIENT VISIT, EST OFFICE/OUTPATIENT VISIT, EST PPPS, subseq visit OFFICE/OUTPATIENT VISIT, EST OFFICE/OUTPATIENT VISIT, EST OFFICE/OUTPATIENT VISIT, EST PPPS, subseq visit OFFICE/OUTPATIENT VISIT, EST OFFICE/OUTPATIENT VISIT, EST OFFICE/OUTPATIENT VISIT, EST PPPS, initial visit OFFICE/OUTPATIENT VISIT, EST OFFICE/OUTPATIENT VISIT, EST OFFICE/OUTPATIENT VISIT, EST OFFICE/OUTPATIENT VISIT, EST OFFICE/OUTPATIENT VISIT, EST OFFICE/OUTPATIENT VISIT, EST OFFICE/OUTPATIENT VISIT, EST OFFICE/OUTPATIENT VISIT, EST OFFICE/OUTPATIENT VISIT, EST OFFICE/OUTPATIENT VISIT, EST Advance Directives Directive Yes / No Effective Date File Name No Information Encounters Encounter Description Practice Location Reason(s) For Visit Diagnoses Date Provider Providers Copied on Encounter OFFICE/OUTPA TIENT VISIT, EST [facility], [address] [place], [address], [place] tel:[phone] [facility] weakness1 (chief complaint) Adult failure to thriveAbnormality of gaitEssential (primary) hypertensionAnemiaA bnormality of albuminDisorder of thyroid, unspecifiedMixed hyperlipidemia 3 Saleem Tang. [address], [address] , [place]. tel:[phone] PREV VISIT, EST, 65 & OVER [facility], [address] [place], [address], [place] tel:[phone] [facility] physical (chief complaint) Encounter for general adult medical exam w abnormal findingsEssential (primary) hypertensionAtrial fibrillationStrokeT hyroid noduleType 2 diabetes mellitus without complicationsAbnorm ality of gaitAnemia 3 Saleem Tang. [address] [place], [address] , [place]. tel:[phone] OFFICE/OUTPA TIENT VISIT, [facility], [address] [place], [address], [place] tel:[phone] [facility] HTN (chief complaint) CVA (chief complaint) weight loss1 (chief complaint) DM (chief complaint) Essential (primary) hypertensionType 2 diabetes mellitus without complicationsAtrial fibrillationThyroid noduleStroke 3 Saleem Tang. [address], [place], [place], [address] , [place]. tel:[phone] OFFICE/OUTPA TIENT VISIT, EST [facility], [address] [place], [address], [place] tel:[phone] [facility] HTN (chief complaint) DM (chief complaint) weight loss1 (chief complaint) Essential (primary) hypertensionType 2 diabetes mellitus without complicationsAbnorm al weight loss 2 Monge Clyde. [address], [place], [place], [address] , [place]. tel:[phone] OFFICE/OUTPA TIENT VISIT, EST [facility], [address] [place] [address], [place] tel:[phone] [facility] brain bleeding1 (chief complaint) AnemiaAtrial fibrillationNontrau matic intracerebral hemorrhage, unspecifiedEssentia l (primary) hypertensionType 2 diabetes mellitus without complications May- 2 Monge Clyde. [address], [place], [place], [address] , [place]. tel:[phone] OFFICE/OUTPA TIENT VISIT, [facility], [address] [place], [address], [place] tel:[phone] [facility] HTN (chief complaint) DM (chief complaint) Hypertensive emergencyAtrial fibrillationType 2 diabetes mellitus without complications Mar- 2 Monge Clyde. [address], [place], [place], [address] , [place]. tel:[phone] OFFICE/OUTPA TIENT VISIT, [facility], [address] [place], [address], [place] tel:[phone] [facility] Medicine physical (chief complaint) Encounter for general adult medical exam w abnormal findingsEssential (primary) hypertensionAtrial fibrillationNontrau matic intracerebral bleedingThyroid noduleType 2 diabetes mellitus without complicationsAbnorm al weight loss 2 Saleem Clyde. [address], [place], [place], [address] , [place]. tel:[phone] OFFICE/OUTPA TIENT VISIT, [facility], [address] [place], [address], tel:[phone] [facility] CVA (chief complaint) CVA1 (chief complaint) Atrial fibrillationEssenti al (primary) hypertensionType 2 diabetes mellitus without complicationsNontra umatic intracerebral bleeding 1 Saleem Price [address], [address] , [place]. tel:[phone] OFFICE/OUTPA TIENT VISIT, [facility], [address] [place], [address], tel:[phone] [facility] physical (chief complaint) Encounter for general adult medical exam w abnormal findingsEssential (primary) hypertensionAtrial fibrillationType 2 diabetes mellitus without complications 0 1 Saleem Price [address], [address] , [place]. tel:[phone] OFFICE/OUTPA TIENT VISIT, [facility], [address] [place], [address], tel:[phone] [facility] DM (chief complaint) HTN (chief complaint) afib (chief complaint) Atrial fibrillationEssenti al (primary) hypertensionType 2 diabetes mellitus without complicationsThyroi d noduleAbnormality of globulin 0 Saleem Price [address], [address] , [place]. tel:[phone] OFFICE/OUTPA TIENT VISIT, [facility], [address] [place], [address], tel:[phone] [facility] DM (chief complaint) globulin1 (chief complaint) renal (chief complaint) HTN (chief complaint) thyroid nodule1 (chief complaint) Essential (primary) hypertensionAtrial fibrillationLiver diseaseType 2 diabetes mellitus without complicationsThyroi d noduleAbnormality of globulinVitamin D deficiency, unspecifiedRenal disease 0 Saleem Tang. [address], [place], [place], [address] , [place]. tel:[phone] Referring Provider: Ketty Hanna [address], [place], [place], [address]. tel:[phone] OFFICE/OUTPA TIENT VISIT, [facility], [address], [place], [place], [address], [place] tel:[phone] [facility] physical (chief complaint) Encounter for general adult medical exam w abnormal findingsStrokeAtria l fibrillationLiver diseaseType 2 diabetes mellitus without complicationsEssent ial (primary) hypertension 9 Saleem Tang. [address], [place], [place], [address] , [place]. tel:[phone] Referring Provider: Ketty Hanna [address], [place], [place], [address]. tel:[phone] OFFICE/OUTPA TIENT VISIT, [facility], [address], [place], [place], [address], [place] tel:[phone] [facility] CVA1 (chief complaint) StrokeAtrial fibrillationRhabdom yolysisType 2 diabetes mellitus without complicationsThyroi d nodule 9 Saleem Tang. [address], [place], [place], [address] , [place]. tel:[phone] Referring Provider: Ketty Hanna [address], [place], [place], [address]. tel:[phone] OFFICE/OUTPA TIENT VISIT, [facility], [address], [place], [place], [address], [place] tel:[phone] [facility] HTN (chief complaint) edema1 (chief complaint) skin1 (chief complaint) thyroid (chief complaint) low D (chief complaint) Type 2 diabetes mellitus without complicationsAbnorm ality of globulinRenal diseaseDisorder of thyroid, unspecifiedVitamin D deficiency, unspecifiedSkin changes 8 Saleem Tang. [address], [place], [place], [address] , [place]. [phone] Referring Provider: Ketty Hanna [address], [place], [place], [address]. tel:[phone] OFFICE/OUTPA TIENT VISIT, [facility], [address], [place], [place], [address], [place] tel:[phone] [facility] Medicine Physical (chief complaint) Encounter for general adult medical exam w abnormal findingsEssential (primary) hypertensionType 2 diabetes mellitus without complicationsStroke Cellulitis of right lower limb 8 Saleem Tang. [address], [place], [place], [address] , [place]. [phone] Referring Provider: Ketty Hanna [address], [place], [place], [address]. tel:[phone] OFFICE/OUTPA TIENT VISIT, [facility], [address], [place], [place], [address], [place] tel:[phone] [facility] HTN (chief complaint) DM (chief complaint) edema1 (chief complaint) EdemaEssential (primary) hypertensionType 2 [address] mellitus [address] complicationsCatara ct with neovascularization, bilateral 7 Saleem Tang. [address], [place], [place], [address] , [place]. [phone] Referring Provider: Ketty Hanna [address], [place], [place], [address]. tel:[phone] OFFICE/OUTPA TIENT VISIT, [facility], [address], [place], [place], [address], [place] tel:[phone] [facility] DM (chief complaint) cataract1 (chief complaint) HTN (chief complaint) edema1 (chief complaint) Type 2 diabetes mellitus without complicationsEdemaE ssential (primary) hypertensionCatarac t in diseases classified elsewhere 7 Saleem Tang. [address], [place], [place], [address] , [place]. [phone] Referring Provider: Ketty Hanna [address], [place], [place], [address]. tel:[phone] OFFICE/OUTPA TIENT VISIT, [facility], [address] [place], [address], [place] tel:[phone] [facility] DM (chief complaint) Other visual disturbancesType 2 diabetes mellitus without complicationsTransi ent cerebral ischemic attack 7 Saleem Tang. [address], [place], [place], [address] , [place]. tel:[phone] Referring Provider: Ketty Hanna [address], [place], [place], [address]. tel:[phone] OFFICE/OUTPA TIENT VISIT, [facility], [address], [place], [place], [address], [place] [phone] [facility] DM (chief complaint) CVA (chief complaint) CVA1 (chief complaint) HTN (chief complaint) edema1 (chief complaint) Type 2 diabetes mellitus without complicationsTransi ent cerebral ischemic attackEssential (primary) hypertensionEdema 7 Saleem Tang. [address], [place], [place], [address] , [place]. tel:[phone] Referring Provider: Ketty Hanna [address], [place], [address]. tel:[phone] OFFICE/OUTPA TIENT VISIT, [facility], [address] [place], [address], [place] tel:[phone] [facility] HTN (chief complaint) edema (chief complaint) eczema1 (chief complaint) weight loss1 (chief complaint) Essential (primary) hypertensionEdemaEc zemaAbnormal weight loss 6 Saleem Tang. [address], [place], [address] , [place]. [phone] Referring Provider: Ketty Hanna [address], [place], [place], [address]. tel:[phone] OFFICE/OUTPA TIENT VISIT, [facility], [address], [place], [place], [address], [place] tel:[phone] [facility] edema (chief complaint) HTN (chief complaint) dry leg (chief complaint) Dietary surveillance and counselingEdemaUnsp ecified essential hypertensionAcute, but ill-defined, cerebrovascular disease 0-201 5 Saleem Tang. [address], [place], [place], [address] , [place]. tel:[phone] Referring Provider: Ketty Hanna [address], [place], [place], [address]. tel:[phone] OFFICE/OUTPA TIENT VISIT, [facility], [address], [place], [address], [place] tel:[phone] [facility] HTN (chief complaint) Edema (chief complaint) TG (chief complaint) Dietary surveillance and counselingEdemaHype rtension, UnspecifiedOther and unspecified hyperlipidemia Damián-2 0201 4 Saleem Tang. [address], [place], [place], [address] , [place]. tel:[phone] Referring Provider: Ketty Hanna [address], [place], [place], [address]. tel:[phone] OFFICE/OUTPA TIENT VISIT, [facility], [address], [place], [place], [address], [place] tel:[phone] [facility] HTN (chief complaint) Dietary surveillance and counselingHypertens ion, UnspecifiedAcute, but ill-defined, cerebrovascular diseaseEdema 0 6201 3 Saleem Tang. [address], [place], [place], [address] , [place]. tel:[phone] Referring Provider: Ketty Hanna [address], [place], [place], [address]. tel:[phone] OFFICE/OUTPA TIENT VISIT, [facility], [address], [place], [place], [address], [place] tel:[phone] [facility] CVA (chief complaint) HTN (chief complaint) Edema (chief complaint) Dietary surveillance and counselingHypertens ion, UnspecifiedAcute, but ill-defined, cerebrovascular diseaseEdema 0 2 Saleem Tang. Ketty Garcia [facility] [place], [address] , . [phone] Referring Provider: Clyde Ketty Monge [facility] [address], [place], [place], [address]. tel:[phone] Family History Family Member Type Diagnosis Age At Onset Father Problem (finding) Unknown Disease Father Problem (finding) Other Mother Problem (finding) Alive and well Payers Payer name Insurance type Covered green party ID Authoriza tion(s) No Information Social History Type Description Quantity Date Captured Comments Alcohol Use Details No Caffeine Use Details Unknown Tobacco Use Status Never smoked tobacco 2022 Smoking Status Never smoker Sex Female Vital Signs Date / Time: Height Weight BMI Pulse Rate Blood Pressure Temperature Respiratory Rate Body Surface Area Head Circumference BMI percentile Pulse Ox Inhaled Ox 2:22 PM 64.00 in 101.80 lbs 17.4 7 kg/m eter (2) 72 /min 150/88 mm[Hg] 97.3 F 16 /min Chief Complaint And Reason For Visit From encounter dated '07/07/2023 14:13'. weakness1 (chief complaint). Description: Pt presents to office along with her . Per her , that she has been only eating once per day for the past week. Pt is very weak and tired and she can barely lift her head up. Pt also has not been drinking much fluid either. Pt thinks that she is urinating ok. Pt also feels very weak and decreased mentation as well per her . 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 Pt is not on blood thinner due to fall risk. Pt denies any chest pain, sob or any headache. Plan Of Treatment Date Type Action Status Goal Special diet education compl eted Goal Special diet education compl eted Goal Special diet education compl eted Referral Ordered: US THYROID ordered Referral Ordered: Keke Chou -[facility] : Dermatology (related to Skin changes) ordered Referral Referred To: Keke Chou [address] [place], [place] [id number] Ordered: Referrals: [facility] : Dermatology. Keke Chou. Evaluate and treat ordered Referral Ordered: Physical Therapy (related to Transient cerebral ischemic attack) ordered Referral Referred To: Physical Therapy Ordered: Referrals: Physical Therapy. Evaluate and treat ordered History Of Present Illness Encounter Date Complaint History Of Prese nt Illness weakness1 Pt presents to o inocencia along with her . Per her , that she has been only eating once per day for the past week. Pt is very weak and tired and she can barely lift her head up. Pt also has not been drinking much fluid either. Pt thinks that she is urinating ok. Pt also feels very weak and decreased mentation as well per her . 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 Pt is not on blood thinner due to fall risk. Pt denies any chest pain, sob or any headache. physical Pt needs annual physical. Pt overall feels well. Pt has history of DM and she has been off metformin for 6 months Pt does not check her glucose at home Pt is noncompliant with lab work .. Pt has paroxymal afib. she is off eliquis due to fall risk. Pt has history of multiple CVA with right side weakness which is stable. ,Pt currently feels at her baseline, Pt has HTN. Pt takes hydralazine and coreg. her bp is ok. Pt denies any chest pain or headache. Pt overall feels well. her states that she feels some fatigue at times DM Pt has history o f DM but she is off metformin due to poor compliance with lab and medication and glucose check Pt denies any polyuria, polydipsia. weight loss1 Pt has been losi ng weight Pt states that her appetite is good at home which is confirmed by her . Pt denies any nausea, vomiting, appetite loss, change of bowel, blood in stool, early satiety, abdominal pain, etc. CVA The risk factors include age > 50. 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 Pt is at baseline in terms of her mental state per . HTN Pt has HTN with paroxymal afib. Pt takes coreg and hydralazine and her bp is stable. Pt denies any chest pain or palpitation Pt denies any sob or headache. DM Pt denies any po lyuria, polydipsia. Her glucose was ok in recent hospital admission Pt is off metformin Pt samuel snot want to check her glucose at home. weight loss1 Pt has been losi ng weight unintentionally Pt denies any appetite loss, nausea, vomiting, Pt states that she eats ok. Pt denies any GI issue HTN Pt has HTN with paroxymal afib. Pt takes coreg and hydralazine and her bp is stable. Pt denies any chest pain or palpitation Pt denies any sob or headache. brain bleeding1 Pt recently suff ered acute intraparenchymal hemorrhage due to poorly controlled HTN. Pt is very noncompliant with medication and she has very poor social support. Pt currently denies any headache. Pt was treated conservatively and she was just released from rehab. Pt denies any chest pain Pt is off metformin, toprol and irbesartan. pt is on hydralazine, coreg now along with eliquis and lipitor. Her bp is ok today. Pt denies any chest pain. Pt also has anemia in hospital. Pt denies any bleeding. Pt does not check her glucose at home but her glucose is ok in hospital. Pt also has paroxymal afib. Pt has been on eliquis. Pt has chronic unsteady gait and she ambulate with walker. Pt denies any recent fall DM Pt has DM. Pt ta kes metformin. Pt is extremely noncompliant with lab work. Pt also does not check her glucose at home. Pt denies any polyuria, polydipsia HTN Pt has HTN Pt th inks that she takes toprol and irbesartan but she does not know any of the names. Her bp is over 200 currently. Pt denies any chest pain or headache. Pt denies any mental stats change. Pt has history of multiple CVA due to paroxymal afib and she is on eliquis currently. Pt denies any new onset of weakness. Pt denies any worsening aphasia. physical Pt needs annual physical. Pt overall feels well. Pt takes metformin for DM. Pt denies any polyuria polydipsia. Pt states that her glucose is around 120s at home. . Pt has paroxymal afib. She takes eliquis Pt denies any bleeding. Pt denies any chest pain or palpitation. Pt has history of multiple CVA with right side weakness which is stable. ,Pt currently feels at her baseline, Pt has HTN. Pt takes irbesartan. Pt denies any chest pain or headache. Pt states that her bp is around 160/90 at home. Pt denies any speech deficit Pt denies any facial droop. Pt denies any neuropathy symptoms. Pt has history of thyroid nodule Pt denies any dysphagia or neck pain. Pt has lost some weight Pt denies any appetite loss, nausea, vomiting, early satiety change of bowel, GERD, etc . CVA CVA1 Pt has chronic C VA with right side residual weakness. Pt has chronic proximal afib and she is on eliquis .Pt apparently had a right side IPH about 3 months ago and she was transferred to [facility] but no neurosurgical intervention was done and she was observed for several days and sent home. Pt did have worsening right side weakness initially which seems recovered. Pt also had some left facial droop which is recovered .Pt states that she is at her baseline now .Pt was given coreg, norvasc and chlorthalidone from hospital but she is not taking any of above. Pt was on irbesartan but she is out as well. Pt denies any headache or mental status change .Pt ambulate with walker. Pt is very noncompliant with lab work and follow up. Pt denies any vision change. Her bp is high today but she has been running out irbesartan for a while physical Pt needs annual physical. Pt overall feels well. Pt takes metformin Pt denies any polyuria polydipsia. Pt does not check glucose at home . Pt has paroxymal afib. She takes eliquis Pt denies any bleeding. Pt denies any chest pain or palpitation. Pt has history of CVA with right side weakness which is stable. ,Pt currently feels at her baseline, Pt has HTN. Pt takes irbesartan. Pt denies any chest pain or headache Pt does not check bp at home. Pt states that she feels well currently afib Pt has paroxymal afib with history of CVA Pt takes eliquis. Pt denies any chest pain or palpitation Pt denies any new neurological deficit. HTN Pt has HTN. Pt t akes irbesartan. Pt does not check her BP at home. DM Pt has borderlin e DM. Pt takes metformins only ,pt does not check her glucose Pt denies any polyuria, polydipsia. thyroid nodule1 Pt has thyroid n odule on MRI of brain from [facility] 2018/ Pt is noncompliant with thyroid ultrasound pt denies any dysphagia, neck pain HTN Pt has HTn Pt is out of norvasc. Her BP is high Pt denies any chest pain or headache renal Pt has borderlin e low renal. Pt has normal UO globulin1 Pt has slightly high globulin DM Pt takes metform in only and she does not want to check her glucose at home pt denies any diarrhea Her A1c and glucose are actually ok physical Pt needs annual physical. Pt is very noncompliant due to poor social support. Pt states that she is off all insulin for unknown reasons Pt states that her BG is around 120s at home. Pt denies any polyuria polydipsia. Pt had mildly high thyroid, high LFt, low D, low renal and low KCL on recent lab, Pt has not followed up until now, Pt has paroxymal afib, Pt has history of CVA with right side weakness which is improving ,Pt currently feels at her baseline, Pt has ont been taking norvasc for her BP and her BP is high today ,Pt denies any chest pain or headache. 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 Pt has right side weakness, which are improving with rehab. Pt is very poor historian and she does not know what is going on at all and I have to obtain her records from [facility] and home health to figure out the event. Pt also suffered rhabdo and her lisinopril, metoprolol, lasix and KCL was stopped by hospital. Pt also was stopped on lantus and she is on novolog per sliding scale now and also metformin. Her renal function did improve post rehydration in the hospital. Currently pt feels fine, Pt has unsteady gait and she walks with a walker currently. Pt denies any chest pain or weakness ,Pt does not have any headache or speech issue Pt has normal UO. Her stain was also held from the hospital due to rhabdo low D Pt has low vitam in D. Pt denies any history of fracture HTN Pt take norvasc, lisinopril and toprol. Her BP is borderline. Pt denies any chest pain or headache. Pt denies any leg swelling. Pt takes lasix and KCL edema1 Pt has history o f mild LE edema. Pt denies worsening swelling. Pt denies any sob thyroid Pt has high thyr oid and high globulin. Pt has borderline renal function. Pt has normal UO skin1 Pt state that he r LE feels very tight and send to dermatolgoy Physical Pt needs annual physical. Pt has HTN. Pt takes toprol and lisinopril and lasix and KCL. Her BP is high today. Pt states that her BP has been high at home as well. Pt has not checked her BP at home but she feels that her BP is high at home. Pt denies any chest pain or headache. Pt also has DM. Pt takes metformin and lantus and her BG is around 130s. Pt denies any polyuria, polydipsia ,Pt denies any neuropathy symptoms. Pt accidently burned her dorsal right foot with hot grease two days ago while cooking. Pt notices skin peeling and some clear drainage. Pt denies any foot pain or any other complaints edema1 Pt doing ok with lasix and kcl. Pt deniesany sob Pt denies any edema DM Pt takes metform in and also lantus. her BG is around 120s. Pt denies any hypoglycedmia pt denies any polyuria, polydipsia HTN Pt has HTn. Pt t akes toprol and lisinopril and her BP is stable. Pt has LE edema. Pt takes lasix and Kcl and doing ok DM Pt has DM. Pt ta kes metformin and lantus. Her BG is aroundd 120s per patient. Pt denies any hypoglycemia. Pt denies any polyuria, polydipsia. Pt denies any foot numbness. cataract1 Pt has bilateral cataract and she has bilaterasl vision loss. Pt states that her vision is blurred on both eyes. Pt denies any eye pain. Pt no longer dose any drinving at this time. pt is seeing [facility] and she has appointment with retina specialist next week HTN Pt takes toprol and also lisinopril and her BP is stable. pt denies any chest pain or headache edema1 Pt has chronic L E edema. Pt takes lasix and KCL. Pt denies any swelling. Pt denies any neuorpathy symptoms DM Pt has DM. Pt ta kes lantus and also metorfmin. Pt states that her BG is around 130s Pt denies any hypoglycemia. Pt states that she has been having very poorl vision recently. Pt feels foggy and she states that she can only see the shape but she canot make out anything else. Pt states that she has to hold on to villavicencio when she walks due to vision issue. Home nurse is concerned about her physical ability at home. her always goes out and she does not know where he goes during the day DM Pt has new onset diabetes Pt takes lantus at night and metformin during the day. Pt states that her BG is around 140s. pt denies any hypoglycemia. Pt denies any foot numbness. Pt denies any polyuria, polydipsia CVA CVA1 Pt recently went to ER for acute right upper extremity weakness. Pt also has right lower leg weakness. MRI failed to show new CVA Neurology seems to think that her new right side weakness is due to TIA from high glucose? Pt evelyn is able to ambulate on her with mild right leg dragging. Pt does feels mild right upper arm and right leg numbness but is resolving. Her strength is also improving per pt. Pt denies any speech problem HTN Pt takes lisinop ril and toprol and her BP is stable today. Pt denies any chest pain or headache edema1 Pt takes lasix a nd KCL and her LE edema is well controlled. Pt denies any SOB or chest pain HTN Pt takes lisinop ril and toprol. Her BP is stable. Pt denies any chest apin or headache pt denies any SOB edema Pt has LE edema. pt takes lasix and KCL and she denie any swelling Pt denies any chset pain or SOB eczema1 Pt has mild ecze ma around legs and she wants steroid topical cream refilled weight loss1 Pt has been losi ng weight gradually. Pt denies any nauea, GERD, vomiting, diarrhea pt states that she is trying to limit her portion of food to maintain her weight. dry leg Pt has dry leg a nd she uses betamethasone PRN and doing ok HTN Pt takes toprol and lisinopril for HTN. PT denies any chest pain. or headache. Pt is out of toprol for one week. edema Pt has LE edema. Pt takes lasix and KCL and doing ok. pt denies any swelling. Pt denies any SOB or chest pain Instructions Date Instruction Additional Infor varinder Increase physical activity Relat ed to Encounter for general adult medical exam w abnormal findings Special diet education Related t o Body mass index (BMI) 28.0-28.9, adult Take medication as directed Rela jasen to Atrial fibrillation Low cholesterol diet Related to Atrial fibrillation Special diet education Related t o Body mass index (BMI) 30.0-30.9, adult Check blood sugar twice a day. R elated to Type 2 diabetes mellitus without complications Increase physical activity. Rela jasen to Type 2 diabetes mellitus without complications Special diet education Related t o Body mass index (BMI) 31.0-31.9, adult Perform monthly self breast examinations. Related to Encntr for general adult medical exam w/o abnormal findings Increase activity. Related to En cntr for general adult medical exam w/o abnormal findings Weight management Related to Casey ma Increase physical activity Relat ed to Edema Prescribed Diet Educ ation/Lifestyle Education Regarding Diet Related to Dietary Surveillance and Counseling Prescribed Activity and Exercise Education Related to Dietary Surveillance and Counseling Prescribed Diet Educ ation/Lifestyle Education Regarding Diet Related to Dietary Surveillance and Counseling Check blood sugar twice a day. R elated to Type 2 diabetes mellitus without complications Increase physical activity. Rela jasen to Type 2 diabetes mellitus without complications Prescribed Activity and Exercise Education Related to Dietary Surveillance and Counseling Prescribed Activity and Exercise Education Related to Dietary Surveillance and Counseling Prescribed Diet Educ ation/Lifestyle Education Regarding Diet Related to Dietary Surveillance and Counseling Dietary counseling Related to Di etary surveillance counseling Decrease caloric intake Related to Dietary surveillance counseling Dietary counseling Related to Di etary surveillance counseling Decrease caloric intake Related to Dietary surveillance counseling Decrease caloric intake Related to Dietary surveillance counseling Dietary counseling Related to Di etary surveillance counseling Assessments Type Assessment Date assessment Adult failure to thrive 023 assessment Abnormality of gait assessment Essential (primary) hypertension assessment Anemia assessment Abnormality of albumin 23 assessment Disorder of thyroid, unspecified assessment Mixed hyperlipidemia Mental Status Date Cognitive Assessment Orientation - Wall ed to time, place, person, situation.
--- OUTSIDE RECORDS SUMMARY | 2024-11-01 12:06 | XMS_ITS | Encounter Summary ---
Author Organization [facility] Address [facility] [place] [address] Care Team Providers Care Engine Mechanic Name Role Phone None, Provider Primary Care Provider Lucio grajeda Encounter Details Date Type Department Care Team (Late st Contact Info) Description 12/15/2018 Hospital Follow-up Call [facility] Inpatient [facility] [address], [place] [id number] Karen Selby RN Social History Tobacco Use Types Packs/Day Years Used Date Smoking Tobacco: Never Smokeless Tobacco: Never Alcohol Use Standard Drinks/Week Comments No 0 (1 standard drink = 0.6 oz pur e alcohol) AUDIT-C Answer Date Recorded Frequency of Alcohol Consumption Never 11/25/2018 Average Number of Drinks Not on file 019 Frequency of Binge Drinking Not on file 10/2018 Comments Unknown Sex and Gender Information Value Date Recorded Sex Assigned at Not on file 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 Answer Date of Assessment Author Status No 11/24/2018 10:30 PM RAILROAD BAGGAGE PORTER Acti ve * Do you have serious difficulty walking or climbing stairs? Answer Date of Assessment Author Status Yes 11/24/2018 10:30 PM RAILROAD BAGGAGE PORTER Ritika Weaver RN Active * Do you have difficulty dressing or bathing? Answer Date of Assessment Author Status Yes 11/24/2018 10:30 PM Ritika Blanton RN Active * Because of a physical, mental, or emotional condition, do you have difficulty doing errands alone such as visiting a doctor's office or shopping? Answer Date of Assessment Author Status Yes 11/24/2018 10:30 PM Ritika Blanton RN Active documented as of this encounter Mental Status * Because of a physical, mental, or emotional condition, do you have serious difficulty concentrating, remembering, or making decisions? Answer Entry Date Author Status Yes 11/24/2018 10:30 PM Ritika Blanton RN Active documented in this encounter Plan of Treatment Not on file documented as of this encounter Visit Diagnoses Not on filedocumented in this encounter Care Teams Engine Mechanic Relationship Specialty Start Date End Date None, Provider, PCP - General 11/26/18 documented as of this encounter
--- OUTSIDE RECORDS SUMMARY | 2024-11-01 12:06 | XMS_ITS | Clinical Summary ---
Author Organization [facility] Address [facility] [place] [address] Care Team Providers Care Manager Telemarketing Name Role Phone None, Provider MD Primary Care Provider Unavaila ble Allergies No known active allergies Medications apixaban 5 MG tabletIndication s:History of ischemic left MCA stroke Take 1 tablet (5 mg total) by mouth 2 (two) times daily. 60 tablet 12/08/2018 Active metFORMIN 500 MG tabletIndication s:History of ischemic left MCA stroke Take 1 tablet (500 mg total) by mouth daily with breakfast. 60 tablet 12/09/2018 Active amlodipine 10 MG tabletIndication s:History of ischemic left MCA stroke Take 1 tablet (10 mg total) by mouth daily. 30 tablet 12/09/2018 Active vitamin D3, cholecalciferol, 1000 units Tab tabletIndication s:History of ischemic left MCA stroke Take 1 tablet (1,000 Units total) by mouth daily. 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) 11/27/2018 History of ischemic left MCA stroke 11/24/2018 Atrial fibrillation ([facility]) 11/22/2018 Diabetes mellitus ([facility]) 11/22/2018 Resolved Problems Problem Noted Date Diagnosed Date Resolved Date ELVIS (acute kidney injury) 11/23/2018 Rhabdomyolysis 11/23/2018 01/05/2019 Acute renal insufficiency 11/22/2018 Immunizations Name Administration Dates Next Due Influenza Adult (Generic) 11/24/2018 Social History Tobacco Use Types Packs/Day [...] on file 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 Gender Identity Not on file Sexual Orientation Straight 11/24/2018 10 :43 PM LINING CUTTER Last Filed Vital Signs Vital Sign Reading Time Taken Comments Blood Pressure 130/82 01/03/2019 2:15 PM CDT Pulse 83 01/03/2019 2:15 PM CDT Temperature 36.9 C (98.5 F) 12/09/2018 7:00 AM CDT Respiratory Rate 18 12/09/2018 7:00 AM CDT Oxygen Saturation 97% 01/03/2019 2:15 PM CDT Inhaled Oxygen Concentration - - Weight 84.8 kg (187 lb) 01/03/2019 2:15 PM CDT Height 167.6 cm (5' 6 ) 11/24/2018 10:28 PM LINING CUTTER Body Mass Index 30.18 11/24/2018 10:28 PM LINING CUTTER Plan of Treatment Health Maintenance Due Date Last Done Comments Kidney Health Evaluation 1941 Pneumococcal Vaccine: 65+ Ye ars (1 of 2 - PCV) 1947 Diabetes: Retinopathy Eye Exam 1959 DTaP, Tdap and Td Vaccines ( 1 - Tdap) 1960 Zoster Vaccines (1 of 2) 1991 Annual Medicare Wellness Visit 2006 Dexa Scan (General) 2006 RSV Immunization or 60+ Years (1 - 1-dose 75+ series) 2016 Hemoglobin A1C 06/24/2019 12/22/2018 Lipid Panel 12/23/2019 12/22/2018 COVID-19 Vaccine ( - 2023-2 5 season) 2024 Influenza Adult (#1) 2024 11/24/2018 Meningococcal B Vaccine Aged Out No l onger eligible based on patient's age to complete this topic Meningococcal Vaccine Aged Out No destiny cornelius eligible based on patient's age to complete this topic RSV Immunizations Under 20 Months Aged Out No longer eligible based on patient's age to complete this topic Procedures Procedure Name Priority Date/Time Associated Diagnosis Comments LIPID PANEL Routine 12/22/2018 12:00 PM CDT HEMOGLOBIN, GLYCOSYLATED Routine 12/22/2018 12:00 PM CDT from Last 3 Months or Most Recently Relevant to Health Maintenance Results * (ABNORMAL) HEMOGLOBIN, GLYCOSYLATED (12/22/2018 12:00 PM CDT) HGB A1C 7.5(H) <5.7 % 12/23/2018 9:13 AM CDT [facility] Comment: INCREASED RISK OF DIABETES<5.7% NON-DIABETES5.7-6.4% INCREASED RISK FOR FUTURE DIABETES> OR = 6.5 CONSISTENT WITH DIABETES STANDARDS OF MEDICAL CARE [facility] S1-S61,2010 WHOLE BLOOD SPECIMEN / Unknown 12/22/2018 12:00 PM CDT 12/22/2018 2:38 PM CDT us Generic Conversion Md [facility] Final R esult [facility] [address] [place] [address], * (ABNORMAL) LIPID PANEL (12/22/2018 12:00 PM CDT) CHOLESTEROL 178 <200.0 MG/DL 12/22/2018 3:42 PM CDT [facility] TRIGLYCERIDES 96 <150 MG/DL 12/22/2018 3:42 PM CDT [facility] HDL 49 >40.0 MG/DL 12/22/2018 3:42 PM CDT [facility] LDL (CALCULATED) 110(H) <100 MG/DL 12/22/2018 3:42 PM CDT [facility] NON HDL CHOLESTEROL 129 <130 MG/DL 12/22/2018 3:42 PM CDT [facility] CHOL/HDL RATIO 3.6 0.0 - 4.5 12/22/2018 3:42 PM CDT [facility] VLDL CALCULATION 19 5 - 55 MG/DL 12/22/2018 3:42 PM CDT [facility] LIPID INTERPRETATION 12/22/2018 3:42 PM CDT [facility] Comment: NIH CONCENSUS REPORT RECOMMENDATIONS: ADULT CHILD LOW RISK: CHOLESTEROL <200 <170 TRIGLYCERIDE <150 --- HDL >=60 --- LDL <100 <110 BORDERLINE: CHOLESTEROL 200-239 170-199 TRIGLYCERIDE 150-199 --- HDL 40-59 --- LDL 100-159 110-129 HIGH RISK: CHOLESTEROL >=240 >=200 TRIGLYCERIDE >=200 --- HDL <40 --- LDL >=160 >=130 12/22/2018 12:0 0 PM CDT 12/22/2018 2:38 PM CDT us Generic Conversion Md [facility] Final R esult Performing Organization Address City/State/[facility] Co de Phone Number [facility] [address] [place] [address], from Last 3 Months or Most Recently Relevant to Health Maintenance Insurance MEDICARE MEDICAID Advance Directives * Full Code (Latest Code Status on File) Date Activated Date Inactivated Comments 11/24/2018 11:18 PM 12/09/2018 1:48 PM Care Teams Manager Telemarketing Relationship Specialty Start Date End Date None, Provider, PCP - General 11/26/18
--- OUTSIDE RECORDS SUMMARY | 2024-11-01 12:06 | XMS_ITS | Patient Health Summary ---
Author Organization [facility] Address [address] [place] [address] Care Team Providers Care Materials Inspector Name Role Phone Clyde Monge MD Primary Care Provider [phone] Note from [facility],non-owned Affiliates and Associated Physician Practices is amultiple site organization consisting of ambulatory clinics and hospital sitesin [place], [place], [place] and [place]. This disclosure is being madepursuant to the Care Everywhere program and may not contain all information available regarding this patient. Last updated 18.[facility] Allergies No known active allergies* Unable To Obtain(Other),Inactive Medications * Be aware that medications may not be up to date on this document. Alwaysverify current medications with the patient. * vitamin D3 (CHOLECALCIFEROL) 1000 UNITS tablet Take by mouth once daily * insulin aspart (NOVOLOG) cartridge(Started 11/24/2018) Inject 0-6 Units subcutaneously 3 times daily with meals Low Dose: Correction Insulin BG (mg/dL) Corrective Action LESS than 70 follow Hypoglycemic guidelines, 70-180 NO Correction insulin 181-220 GIVE 2 units of insulin 221-260 GIVE 3 units of insulin 261-300 GIVE 4 units of insulin 301-350 GIVE 5 units of insulin Greater than 350 GIVE 6 units of insulin and Notify Physician * atorvastatin (LIPITOR) 40 MG tablet(Started 04/19/2022) Take 1 (one) tablet by mouth at bedtime * apixaban (ELIQUIS) 5 MG tablet(Started 05/16/2022) Take 1 (one) tablet by mouth 2 times daily Reasons: 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 3 refills by 04/19/2023 * carvedilol (COREG) 12.5 MG tablet(Started 04/19/2022) Take 1 (one) tablet by mouth 2 times daily with morning and evening meal Active Problems Problem Noted Date Diagnosed Date Hypertensive emergency 04/16/2022 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 Body Mass Index 23.1 11/22/2018 4:48 PM [employer] CERTIFIED ORTHOTIST Procedures * CARDIAC EKG ORDER(Performed 04/20/2022) * GLUCOSE - POINT OF CARE(Performed 04/19/2022) * GLUCOSE - POINT OF CARE(Performed 04/19/2022) * PHOSPHORUS BLOOD(Performed 04/19/2022) Performed for Intraparenchymal hemorrhage of brain (HCC) * MAGNESIUM BLOOD(Performed 04/19/2022) Performed for Intraparenchymal hemorrhage of brain (HCC) * CBC W/O DIFFERENTIAL(Performed 04/19/2022) Performed for Intraparenchymal hemorrhage of brain (HCC), Hypertensive emergency * BASIC METABOLIC PANEL (CALCIUM TOTAL)(Performed 04/19/2022) Performed for Intraparenchymal hemorrhage of brain (HCC) * MRI BRAIN WWO CONTRAST(Performed 04/18/2022) Performed for Intraparenchymal hemorrhage of brain (HCC) * GLUCOSE - POINT OF CARE(Performed 04/18/2022) * GLUCOSE - POINT OF CARE(Performed 04/18/2022) * GLUCOSE - POINT OF CARE(Performed 04/18/2022) * GLUCOSE - POINT OF CARE(Performed 04/18/2022) * BASIC METABOLIC PANEL (CALCIUM TOTAL)(Performed 04/18/2022) * TROPONIN I(Performed 04/18/2022) * HEMOGLOBIN A1C(Performed 04/18/2022) Performed for Intraparenchymal hemorrhage of brain (HCC) * PHOSPHORUS BLOOD(Performed 04/18/2022) Performed for Intraparenchymal hemorrhage of brain (HCC) * MAGNESIUM BLOOD(Performed 04/18/2022) Performed for Intraparenchymal hemorrhage of brain (HCC) * CBC W/O DIFFERENTIAL(Performed 04/18/2022) Performed for Intraparenchymal hemorrhage of brain (HCC), Hypertensive emergency * GLUCOSE - POINT OF CARE(Performed 04/17/2022) * GLUCOSE - POINT OF CARE(Performed 04/17/2022) * GLUCOSE - POINT OF CARE(Performed 04/17/2022) * GLUCOSE - POINT OF CARE(Performed 04/17/2022) * MRI BRAIN WO CONTRAST(Performed 04/16/2022) Performed for Intraparenchymal hemorrhage of brain (HCC) * GLUCOSE - POINT OF CARE(Performed 04/16/2022) * GLUCOSE - POINT OF CARE(Performed 04/16/2022) * GLUCOSE - POINT OF CARE(Performed 04/16/2022) * MAGNESIUM BLOOD(Performed 04/16/2022) Performed for Intraparenchymal hemorrhage of brain (HCC) * CT ANGIO BRAIN AND NECK(Performed 04/16/2022) Performed for Intraparenchymal hemorrhage of brain (HCC) * ECHO COMPLETE W BUBBLE STUDY(Performed 04/16/2022) Performed for Intraparenchymal hemorrhage of brain (HCC) * TROPONIN I(Performed 04/16/2022) Performed for Intraparenchymal hemorrhage of brain (HCC), Hypertensive emergency * TROPONIN I(Performed 04/16/2022) * LIPID PROFILE(Performed 04/16/2022) Performed for Intraparenchymal hemorrhage of brain (HCC) * CBC W/O DIFFERENTIAL(Performed 04/16/2022) Performed for Intraparenchymal hemorrhage of brain (HCC), Hypertensive emergency * PT-INR SLH(Performed 04/16/2022) Performed for Intraparenchymal hemorrhage of brain (HCC), Hypertensive emergency * EKG 12-LEAD(Performed 04/16/2022) Performed for Intraparenchymal hemorrhage of brain (HCC) * CREATININE - POCT INTERFACED(Performed 04/15/2022) * TYPE + SCREEN PANEL(Performed 04/15/2022) * TROPONIN I(Performed 04/15/2022) * PT-INR SLH(Performed 04/15/2022) * COMPREHENSIVE METABOLIC PANEL(Performed 04/15/2022) * CBC W AUTO DIFFERENTIAL(Performed 04/15/2022) * CARDIAC EKG ORDER(Performed 12/18/2018) * GLUCOSE - POINT OF CARE(Performed 11/24/2018) * CK BLOOD(Performed 11/24/2018) * GLUCOSE - POINT OF CARE(Performed 11/24/2018) * CBC W/O DIFFERENTIAL(Performed 11/24/2018) * BASIC METABOLIC PANEL (CALCIUM TOTAL)(Performed 11/24/2018) * GLUCOSE - POINT OF CARE(Performed 11/24/2018) * GLUCOSE - POINT OF CARE(Performed 11/23/2018) * GLUCOSE - POINT OF CARE(Performed 11/23/2018) * UREA NITROGEN URINE RANDOM(Performed 11/23/2018) * PROTEIN URINE RANDOM QUANTITATIVE(Performed 11/23/2018) * CREATININE URINE RANDOM(Performed 11/23/2018) * SODIUM URINE RANDOM(Performed 11/23/2018) * US RETROPERITONEAL COMPLETE(Performed 11/23/2018) Performed for ELVIS (acute kidney injury) (HCC) * GLUCOSE - POINT OF CARE(Performed 11/23/2018) * GLUCOSE - POINT OF CARE(Performed 11/23/2018) * GLUCOSE - POINT OF CARE(Performed 11/23/2018) * MAGNESIUM BLOOD(Performed 11/23/2018) * TROPONIN I(Performed 11/23/2018) * CK BLOOD(Performed 11/23/2018) * CBC W/O DIFFERENTIAL(Performed 11/23/2018) * BASIC METABOLIC PANEL (CALCIUM TOTAL)(Performed 11/23/2018) * GLUCOSE - POINT OF CARE(Performed 11/22/2018) * ECHO COMPLETE W BUBBLE STUDY(Performed 11/22/2018) Performed for Arterial ischemic stroke, MCA, left, acute (HCC) * GLUCOSE - POINT OF CARE(Performed 11/22/2018) * MRI BRAIN WO CONTRAST(Performed 11/22/2018) Performed for Cerebrovascular accident (CVA) due to other mechanism (HCC), Arterial ischemic stroke, MCA, left, acute (HCC), Atrial fibrillation, unspecified type (HCC) * GLUCOSE - POINT OF CARE(Performed 11/22/2018) * CULTURE URINE(Performed 11/22/2018) * CK BLOOD(Performed 11/22/2018) * LIPID PROFILE(Performed 11/22/2018) * TROPONIN I(Performed 11/22/2018) * URINALYSIS W/MICROSCOPIC NO CULTURE(Performed 11/22/2018) * XR CHEST 2VW(Performed 11/22/2018) Performed for Cerebrovascular accident (CVA) due to other mechanism (HCC), Arterial ischemic stroke, MCA, left, acute (HCC), Atrial fibrillation, unspecified type (HCC) * HEMOGLOBIN A1C(Performed 11/22/2018) * TROPONIN I(Performed 11/22/2018) * PT-INR SLH(Performed 11/22/2018) * COMPREHENSIVE METABOLIC PANEL(Performed 11/22/2018) * CBC W AUTO DIFFERENTIAL(Performed 11/22/2018) * EKG 12-LEAD(Performed 11/22/2018) Performed for Cerebrovascular accident (CVA) due to other mechanism (HCC) * TYPE + SCREEN PANEL(Performed 11/22/2018) * CT CEREBRAL PERFUSION ANALYSIS(Performed 11/22/2018) Performed for Cerebrovascular accident (CVA) due to other mechanism (HCC) * CT ANGIO BRAIN NECK STROKE(Performed 11/22/2018) Performed for Cerebrovascular accident (CVA) due to other mechanism (HCC) * CREATININE BLOOD - POCT (IP) [facility](Performed 11/22/2018) Performed for Cerebrovascular accident (CVA) due to other mechanism (HCC) * CT BRAIN STROKE(Performed 11/22/2018) Performed for Cerebrovascular accident (CVA) due to other mechanism (HCC) Results * CARDIAC EKG ORDER (04/20/2022 2:34 PM CDT) Only the most recent of2 resultswithin the time period is included. Narrative 04/20/2022 2:34 PM CDT Ordered by an unspecified provider. Scanned Document CARDIAC SERVICES ORD ERABLES * GLUCOSE - POINT OF CARE (04/19/2022 12:23 PM CDT) Only the most recent of24 resultswithin the time period is included. Glucose WB/POC 96 70 - 115 mg/dL 04/19/2022 12:28 PM CDT [facility] Specimen Type Cap Fingerstick 2021 12:28 PM CDT [facility] Blood BLOOD SPECIMEN / Unknown 04/19/2022 12:23 PM CDT 04/19/2022 12:28 PM CDT Shiraz Correa MD LAB - POINT OF CARE ORDERABLES [facility] [address] [place] [id number], [facility] [phone] * (ABNORMAL) CBC W/O DIFFERENTIAL (04/19/2022 2:23 AM CDT) Only the most recent of5 resultswithin the time period is included. Pathologist [facility] WBC 6.3 3.5 - 10.5 10 3/uL 04/19/2022 2:51 AM [facility] RBC 3.42(L) 3.80 - 5.20 10 6/uL 04/19/2022 2:51 AM [facility] Hemoglobin 9.9(L) 12.0 - 15.6 g/dL 04/19/2022 2:51 AM [facility] Hematocrit 29.7(L) 35.0 - 45.0 % 04/19/2022 2:51 AM [facility] MCV 86.8 80.7 - 98.3 fL 04/19/2022 2:51 AM [facility] MCH 28.9 26.7 - 34.0 pg 04/19/2022 2:51 AM [facility] MCHC 33.3 30.8 - 35.9 g/dL 04/19/2022 2:51 AM [facility] Platelet Count 198 150 - 400 10 3/uL 04/19/2022 2:51 AM [facility] RDW-SD 42.3 36.0 - 50.0 fL 04/19/2022 2:51 AM [facility] RDW-CV 13.3 11.2 - 14.8 % 04/19/2022 2:51 AM [facility] MPV 9.9 9.4 - 12.9 fL 04/19/2022 2:51 AM [facility] nRBC Absolute 0.00 0 10 3/uL 04/19/2022 2:51 AM [facility] nRBC Auto 0.0 0 /100 WBC 04/19/2022 2:51 AM [facility] Blood BLOOD SPECIMEN / Unknown Lab Venipuncture / Unknown 04/19/2022 2:23 AM CDT 04/19/2022 2:40 AM [facility] Vijay Garcia MD LAB - HEMATOLOGY ORD ERABLES [facility] [address] [place] [id number], [facility] [phone] * (ABNORMAL) BASIC METABOLIC PANEL (CALCIUM TOTAL) (04/19/2022 2:23 AM CDT) Only the most recent of4 resultswithin the time period is included. BUN 16 7 - 26 mg/dL 04/19/2022 3:04 AM [facility] Creatinine 0.97(H) 0.56 - 0.96 mg/dL 04/19/2022 3:04 AM [facility] Sodium 142 136 - 145 mmol/L 04/19/2022 3:04 AM [facility] Potassium 3.2(L) 3.5 - 4.5 mmol/L 04/19/2022 3:04 AM [facility] Chloride 109(H) 98 - 107 mmol/L 04/19/2022 3:04 AM [facility] CO2 24 22 - 29 mmol/L 04/19/2022 3:04 AM [facility] Glucose 96 70 - 115 mg/dL 04/19/2022 3:04 AM [facility] Calcium 8.2(L) 8.4 - 10.2 mg/dL 04/19/2022 3:04 AM [facility] Anion Gap 12 8 - 18 04/19/2022 3:04 AM [facility] BUN/Creatinine Ratio 16 7 - 23 04/19/2022 3:04 AM [facility] Osmolality Calculated 295 270 - 300 mOsm/kg 04/19/2022 3:04 AM [facility] eGFR by CKD-EPI 59(L) >=90 mL/min/1.7 3 m2 04/19/2022 3:04 AM [facility] Blood BLOOD SPECIMEN / Unknown Lab Venipuncture / Unknown 04/19/2022 2:23 AM CDT 04/19/2022 2:40 AM CDT Vijay Garcia MD LAB - CHEMISTRY ORDE [facility] Organization Address City/State/ZIP Co de Phone Number [facility] [address] [place] [address], [facility] [phone] * PHOSPHORUS BLOOD (04/19/2022 2:23 AM CDT) Only the most recent of2 resultswithin the time period is included. Phosphorus 3.0 2.9 - 5.1 mg/dL 04/19/2022 3:04 AM CDT [facility] Blood BLOOD SPECIMEN / Unknown Lab Venipuncture / Unknown 04/19/2022 2:23 AM CDT 04/19/2022 2:40 AM CDT Vijay Garcia MD LAB - CHEMISTRY [facility] Performing Organization Address City/[facility]/ZIP Co de Phone Number [address] [phone], [facility] [phone] * MAGNESIUM BLOOD (04/19/2022 2:23 AM CDT) Only the most recent of4 resultswithin the time period is included. Magnesium 2.0 1.6 - 2.6 mg/dL 04/19/2022 3:04 AM CDT [facility] Blood BLOOD SPECIMEN / Unknown Lab Venipuncture / Unknown 04/19/2022 2:23 AM CDT 04/19/2022 2:40 AM CDT Vijay Garcia MD LAB - CHEMISTRY [facility] Performing Organization Address [facility] [place]/[facility]/ZIP Co de Phone Number [address] [address], [place] [phone] * MRI BRAIN WWO CONTRAST (04/18/2022 10:54 PM CDT) Anatomical Region Laterality Modality Head Magnetic Resonan ce 04/19/2022 8:56 AM CDT Impressions 04/19/2022 11:20 AM CDT IMPRESSION: 1.No interval changes in focal susceptibility artifact in left medial cerebellum, likely representing chronic hemorrhage. 2.No abnormal intracranial enhancement. 3.No acute intracranial abnormality. 4.Extensive chronic parenchymal changes including multifocal hemosiderin deposition which May represent hypertensive microangiopathy or amyloid angiopathy. Report dictated by Poly Nichols MD (residential sales representative). I, Dr. LAURIE FRIEDMAN, M.D. have personally reviewed and interpreted this examination/study. This report was electronically signed by LAURIE FRIEDMAN M.D. on 04/19/2022 11:20 AM . Narrative 04/19/2022 11:20 AM CDT EXAMINATION: Magnetic resonance imaging (MRI) of the brain without and with contrast HISTORY: I61.9: Intraparenchymal hemorrhage of brain; TECHNIQUE: MRI of the brain was performed with and without intravenous contrast according to standard protocol. 14 mL Clariscan was administered intravenously without adverse reaction. COMPARISON: Brain MRI dated 04/16/2022. FINDINGS: Compared to the prior exam on 04/16/2022, there has been no significant interval change. Specifically, focal susceptibility artifact seen in left medial cerebellum is stable. There is no corresponding enhancement. The findings likely represent old hemorrhage. The typical imaging findings of cavernous confirmation are not demonstrated. Multiple small old infarcts are again seen in bilateral deep cerebral white matter, basal ganglia, thalami and cerebellum as well as small areas in right medial occipital lobe and left hippocampus. There are multiple small foci of hemosiderin deposition in left posterior bilateral thalami, left lentiform nucleus, right komal and bilateral cerebellar hemispheres. There are confluent chronic microvascular ischemic changes in the supratentorial white matter and mild changes in the komal. Moderate generalized cerebral and mild cerebellar volume loss is present. Flow voids of major intracranial vessels are present. There is no MR evidence of acute infarct. There is no significant mass effect, extra axial fluid collection or hydrocephalus. The sella is unremarkable. The patient is status post bilateral cataract surgery. The paranasal sinuses and tympanomastoid cavities are aerated. Procedure Note Laurie Friedman MD - 04/19/2022 EXAMINATION: Magnetic resonance imaging (MRI) of the brain without and with contrast HISTORY: I61.9: Intraparenchymal hemorrhage of brain; TECHNIQUE: MRI of the brain was performed with and without intravenous contrast according to standard protocol. 14 mL Clariscan wasadministered intravenously without adverse reaction. COMPARISON: Brain MRI dated 04/16/2022. FINDINGS: Compared to the prior exam on 04/16/2022, there has been no significant interval change. Specifically, focal susceptibility artifact seen inleft medial cerebellum is stable. There is no corresponding enhancement. The findings likely represent old hemorrhage. The typical imaging findingsof cavernous confirmation are not demonstrated. Multiple small old infarcts are again seen in bilateral deep cerebral white matter, basal ganglia, thalami and cerebellum as well as smallareas in right medial occipital lobe and left hippocampus. There are multiple small foci of hemosiderin deposition in left posterior bilateralthalami, left lentiform nucleus, right komal and bilateral cerebellar hemispheres. There are confluent chronic microvascular ischemic changes in the supratentorial white matter and mild changes in the komal. Moderate generalized cerebral and mild cerebellar volume loss is present. Flow voids of major intracranial vessels are present. There is no MR evidence of acute infarct. There is no significant mass effect, extra axial fluid collection or hydrocephalus. The sella is unremarkable. The patient is status post bilateral cataract surgery. The paranasal sinuses and tympanomastoid cavities are aerated. IMPRESSION: 1.No interval changes in focal susceptibility artifact in left medial cerebellum, likely representing chronic hemorrhage. 2.No abnormal intracranial enhancement. 3.No acute intracranial abnormality. 4.Extensive chronic parenchymal changes including multifocal hemosiderin deposition which May represent hypertensive microangiopathy or amyloid angiopathy. Report dictated by Poly Nichols MD (residential sales representative). I, Dr. LAURIE FRIEDMAN M.D. have personally reviewed and interpreted this examination/study. This report was electronically signed by LAURIE FRIEDMAN M.D. on 04/19/2022 11:20 AM . Shiraz Correa MD MR ORDERABLES * TROPONIN I (04/18/2022 12:31 AM CDT) Only the most recent of7 resultswithin the time period is included. Troponin I <0.010 <0.032 ng/mL 04/18/2022 1:33 AM CDT [facility] Blood BLOOD SPECIMEN / Unknown Venipuncture / Unknown 04/18/2022 12:31 AM CDT 04/18/2022 12:44 AM CDT Shiraz Correa MD LAB - CHEMISTRY [facility] Organization Address City/State/ZIP Co de Phone Number [address] [phone], [facility] [phone] * (ABNORMAL) HEMOGLOBIN A1C (04/18/2022 12:31 AM CDT) Only the most recent of2 resultswithin the time period is included. Hemoglobin A1c 6.2(H) <=5.6 % 04/18/2022 3:45 PM CDT [facility] Estimated Average Glucose 131 mg/dL 04/18/2022 3:45 PM CDT [facility] Comment: HbA1c Interpretation: Normal : < 5.7% Pre-diabetes: 5.7-6.4% Diabetes: Equal to or greater than 6.5% Test results diagnostic of diabetes should be repeated for confirmation. Treatment target values recommended by ADA and other clinical organizations should be used to evaluate metabolic control in patients. Reference: [place] [employer], Standards of Care in Diabetes -2020 In patients 70 years and older consider HbA1c target range of 7.0-7.5% (Reference: Esau Lee et al. JAMDA. 2012) The Sebia assay for the measurement of HbA1c is a National Glycohemoglobin Standardization Program (NGSP) certified method. Blood BLOOD SPECIMEN / Unknown Venipuncture / Unknown 04/18/2022 12:31 AM CDT 04/18/2022 12:44 AM CDT Vijay Garcia MD LAB - CHEMISTRY ORDE [facility] Organization Address City/State/ZIP Co de Phone Number [facility] [address] [place] [address], [facility] [phone] * MRI BRAIN WO CONTRAST (04/16/2022 11:11 PM CDT) Only the most recent of2 resultswithin the time period is included. Anatomical Region Laterality Modality Head Magnetic Resonan ce 04/17/2022 9:26 AM CDT Impressions 04/17/2022 9:35 AM CDT IMPRESSION: 1.Corresponding to the 5 mm focus of hyperdensity in the left medial cerebellum seen on recent CT scan, there is hemosiderin deposition without surrounding edema or mass effect. These findings suggest subacute to chronic hemorrhage. 2.No acute infarct. 3.Extensive chronic parenchymal changes including small old infarcts in multiple vascular territories, multiple foci of hemosiderin deposition (increased since the prior study) and confluent white matter signal abnormality along with parenchymal volume loss. The findings may be seen with hypertensive microangiopathy or amyloid angiopathy. This report was electronically signed by LAURIE FRIEDMAN M.D. on 04/17/2022 9:35 AM . Narrative 04/17/2022 9:35 AM CDT MRI brain without intravenous contrast CLINICAL INFORMATION: I61.9: Intraparenchymal hemorrhage of brain TECHNIQUE: MRI of the brain was performed without intravenous contrast according to standard protocol. COMPARISON: CT of head from 04/16/2022 and MRI brain from 11/22/2018 were reviewed. FINDINGS: The 5 mm focus of hyperdensity in the left medial cerebellum seen on recent CT scan corresponds to susceptibility artifact, subtle low intensity on T2-weighted images and sagittal hyperintense signal on T1-weighted images. There is no surrounding edema or mass effect. These findings suggest subacute to chronic hemorrhage. Multiple small old infarcts are seen in bilateral deep cerebral white matter, basal ganglia, thalami and cerebellum as well as small areas in right medial occipital lobe and left hippocampus. There are multiple small foci of hemosiderin deposition in left posterior bilateral thalami, left lentiform nucleus, right komal and bilateral cerebellar hemispheres, increased since the MRI from 2019. There are confluent chronic microvascular ischemic changes in the supratentorial white matter and mild changes in the komal. Moderate generalized cerebral and mild cerebellar volume loss is present. Flow voids of major intracranial vessels are present. There is no MR evidence of acute infarct. There is no significant mass effect, extra axial fluid collection or hydrocephalus. The sella unremarkable. The patient is status post bilateral cataract surgery. The paranasal sinuses and tympanomastoid cavities are aerated. Procedure Note Laurie Friedman MD - 04/17/2022 MRI brain without intravenous contrast CLINICAL INFORMATION: I61.9: Intraparenchymal hemorrhage of brain TECHNIQUE: MRI of the brain was performed without intravenous contrast according to standard protocol. COMPARISON: CT of head from 04/16/2022 and MRI brain from 11/22/2018 were reviewed. FINDINGS: The 5 mm focus of hyperdensity in the left medial cerebellum seen on recent CT scan corresponds to susceptibility artifact, subtle low intensity on T2-weighted images and sagittal hyperintense signal on T1-weighted images. There is no surrounding edema or mass effect. These findings suggest subacute to chronic hemorrhage. Multiple small old infarcts are seen in bilateral deep cerebral white matter, basal ganglia, thalami and cerebellum as well as small areas in right medial occipital lobe and left hippocampus. There are multiplesmall foci of hemosiderin deposition in left posterior bilateral thalami, left lentiform nucleus, right komal and bilateral cerebellar hemispheres, increased since the MRI from 2019. There are confluent chronic microvascular ischemic changes in the supratentorial white matter andmild changes in the komal. Moderate generalized cerebral and mild cerebellar volume loss is present. Flow voids of major intracranial vessels are present. There is no MR evidence of acute infarct. There is no significant mass effect, extra axial fluid collection or hydrocephalus. The sella unremarkable. The patient is status post bilateral cataract surgery. The paranasal sinuses and tympanomastoid cavities are aerated. IMPRESSION: 1.Corresponding to the 5 mm focus of hyperdensity in the left medial cerebellum seen on recent CT scan, there is hemosiderin depositionwithout surrounding edema or mass effect. These findings suggest subacute to chronic hemorrhage. 2.No acute infarct. 3.Extensive chronic parenchymal changes including small old infarcts in multiple vascular territories, multiple foci of hemosiderin deposition (increased since the prior study) and confluent white matter signal abnormality along with parenchymal volume loss. The findings may be seen with hypertensive microangiopathy or amyloid angiopathy. This report was electronically signed by LAURIE FRIEDMAN M.D. on 04/17/2022 9:35 AM . Cameron Villalba MD MR ORDERABLES * CT ANGIO NECK HEAD W WO CONTRAST - Stroke (04/16/2022 9:09 AM CDT) Anatomical Region Laterality Modality Head Computed Tomogra phy 04/16/2022 12:0 6 AM CDT Impressions 04/16/2022 2:51 PM CDT IMPRESSION: 1.Subcentimeter focus of hemorrhage in the left cerebellum. Underlying lesions cannot be excluded. 2.Patent intracranial arteries. Multifocal stenoses in the middle and posterior cerebral arteries. 3.No significant stenosis of cervical segments of carotid and vertebral arteries. Dictated by Allyn Hammond MD (residential sales representative) Dr. LAURIE Armas M.D. have personally reviewed and interpreted this examination/study. This report was electronically signed by LAURIE FRIEDMAN M.D. on 04/16/2022 2:51 PM . Narrative 04/16/2022 2:51 PM CDT EXAMINATION: CT scan of the head without contrast CT angiography of the brain CT angiography of the neck HISTORY: I61.9: Intraparenchymal hemorrhage of brain TECHNIQUE: CT of the head was performed without contrast according to standard protocol. Then CT angiography of the head and neck was obtained after administration of 75 mL Isovue 370 intravenous contrast. Three dimensional postprocessing was performed by the technologist and sent to the workstation for review. NASCET criteria was utilized for evaluation of carotid stenosis. COMPARISON: CT head from 04/15/2022 performed at another institution and MRI brain from 11/22/2018 were reviewed. FINDINGS: Brain: A round 5 mm focus of hyperdensity is seen in the left medial cerebellum. This presumably represents acute hemorrhage, unchanged since 04/15/2022 with new since 11/12/2018. 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 There are confluent chronic microvascular ischemic changes. Moderate generalized cerebral and mild cerebellar volume loss is present. There is no CT evidence of acute infarct. There is no significant mass effect, extra axial fluid collection or hydrocephalus. The visualized paranasal sinuses, orbits and mastoid air cells do not demonstrate significant finding. CTA brain: *Right carotid system: Short segment [id number] stenosis of the supraclinoid ICA. Small caliber but patent M1 segment. Patent M2 segments. Patent SHANE. Normal anterior communicating artery. *Left carotid system: Scattered calcification with mild stenosis of the supraclinoid ICA. Patent SHANE and MCA. Mild irregular caliber and stenosis of the superior M2 division. Normal anterior communicating artery. *Posterior circulation: Normal course and caliber of vertebral arteries and basilar artery. Patent transmission inspector. Irregular caliber of bilateral P1 and P2 segments with stenoses. Nonvisualization of bilateral posterior communicating arteries. There is no aneurysm. The dural venous sinuses appear patent. CTA neck: *Aortic arch: Scattered atherosclerotic calcification without ostial stenosis. 2 vessel configuration of the great vessel origin. *Right carotid system: Patent. Small calcified plaque of the mid CCA. Partially calcified plaque of the carotid bulb and proximal ICA. No stenosis of ICA origin. *Left carotid system: Patent. Small calcified plaque at the carotid bulb. No stenosis. *Vertebral arteries: Patent bilaterally. Slightly irregular caliber of the V3 segments bilaterally, presumably atherosclerotic. No significant stenosis. Extravascular findings: No significant finding. Procedure Note Laurie Friedman MD - 04/16/2022 EXAMINATION: CT scan of the head without contrast CT angiography of the brain CT angiography of the neck HISTORY: I61.9: Intraparenchymal hemorrhage of brain TECHNIQUE: CT of the head was performed without contrast according to standard protocol. Then CT angiography of the head and neck was obtained after administration of 75 mL Isovue 370 intravenous contrast. Three dimensional postprocessing was performed by the technologist and sent to the workstation for review. NASCET criteria was utilized for evaluationof carotid stenosis. COMPARISON: CT head from 04/15/2022 performed at another institution and MRI brain from 11/22/2018 were reviewed. FINDINGS: Brain: A round 5 mm focus of hyperdensity is seen in the left medialcerebellum. This presumably represents acute hemorrhage, unchanged since 04/15/2022 with new since 11/12/2018. 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 There are confluentchronic microvascular ischemic changes. Moderate generalized cerebral and mild cerebellar volume loss is present. There is no CT evidence of acute infarct. There is no significant mass effect, extra axial fluidcollection or hydrocephalus. The visualized paranasal sinuses, orbits and mastoid air cells do not demonstrate significant finding. CTA brain: *Right carotid system: Short segment [id number] stenosis of the supraclinoid ICA. Small caliber but patent M1 segment. Patent [id number]. Patent SHANE. Normal anterior communicating artery. *Left carotid system: Scattered calcification with mild stenosis of the supraclinoid ICA. Patent SHANE and MCA. Mild irregular caliber andstenosis of the superior M2 division. Normal anterior communicating artery. *Posterior circulation: Normal course and caliber of vertebral arteries and basilar artery. Patent transmission inspector. Irregular caliber of bilateral P1 andP2 segments with stenoses. Nonvisualization of bilateral posterior communicating arteries. There is no aneurysm. The dural venous sinuses appear patent. CTA neck: *Aortic arch: Scattered atherosclerotic calcification without ostial stenosis. 2 vessel configuration of the great vessel origin. *Right carotid system: Patent. Small calcified plaque of the mid CCA. Partially calcified plaque of the carotid bulb and proximal ICA. No stenosis of ICA origin. *Left carotid system: Patent. Small calcified plaque at the carotidbulb. No stenosis. *Vertebral arteries: Patent bilaterally. Slightly irregular caliber ofthe V3 segments bilaterally, presumably atherosclerotic. No significant stenosis. Extravascular findings: No significant finding. IMPRESSION: 1.Subcentimeter focus of hemorrhage in the left cerebellum. Underlying lesions cannot be excluded. 2.Patent intracranial arteries. Multifocal stenoses in the middle and posterior cerebral arteries. 3.No significant stenosis of cervical segments of carotid and vertebral arteries. Dictated by Allyn Hammond MD (residential sales representative) I, Dr. LAURIE FRIEDMAN M.D. have personally reviewed and interpreted this examination/study. This report was electronically signed by LAURIE FRIEDMAN M.D. on 04/16/2022 2:51 PM . Cameron Villalba MD CT ORDERABLES * ECHO COMPLETE W BUBBLE STUDY (04/16/2022 9:05 AM CDT) Only the most recent of2 resultswithin the time period is included. Anatomical Region Laterality Modality Chest Echo 04/16/2022 8:39 AM CDT Narrative Procedure Note Mery Hines MD - 04/16/2022 Cameron Villalba MD ECHOCARDIOGRAPHY RA DIANT * (ABNORMAL) LIPID PROFILE (04/16/2022 1:42 AM CDT) Only the most recent of2 resultswithin the time period is included. Cholesterol Total 195 <200 mg/dL 04/16/2022 2:14 AM CDT [facility] HDL 39(L) >40 mg/dL 04/16/2022 2:14 AM CDT [facility] Comment: ATP III Classification of HDL Cholesterol: <40 mg/dL: Considered a major risk factor. >60 mg/dL: Considered a negative risk factor. LDL Calculated 130(H) <100 mg/dL 04/16/2022 2:14 AM CDT [facility] Comment: ATP III Classification of LDL Cholesterol: <100 mg/dL: Optimal 100 - 129 mg/dL: Near Optimal/Above Optimal 130 - 159 mg/dL: Borderline High 160 - 189 mg/dL: High >190 mg/dL: Very High Triglycerides 128 <150 mg/dL 04/16/2022 2:14 AM T [facility] Comment: ATP III Classification of Triglycerides: <150 mg/dL: Normal 150 - 199 mg/dL: Borderline High 200 - 400 mg/dL: High >500 mg/dL: Very High Blood BLOOD SPECIMEN / Unknown Venipuncture / Unknown 04/16/2022 1:42 AM CDT 04/16/2022 1:47 AM CDT Cameron Villalba MD LAB - CHEMISTRY ORD ERABLES Performing Organization Address [facility] [place]/[facility] Co de Phone Number [address] [phone], [facility] [phone] * (ABNORMAL) PT-INR [facility] (04/16/2022 1:30 AM CDT) Only the most recent of3 resultswithin the time period is included. PT 15.0(H) 12.1 - 14.8 Seconds 04/16/2022 1:56 AM T [facility] INR 1.2 See Comment 04/16/2022 1:56 AM T [facility] Comment:The suggested therap eutic range for standard coumadin (warfarin) therapy is an INR of 2.0-3.0. For high-risk patients (Mechanical Mitral Valve Prosthesis, etc.), the suggested prophylactic therapeutic range is an INR of 2.5-3.5. Blood BLOOD SPECIMEN / Unknown Venipuncture / Unknown 04/16/2022 1:30 AM CDT 04/16/2022 1:30 AM CDT Cameron Villalba MD LAB - COAGULATION O RDERABLES Performing Organization Address [facility] [place]/[facility]/ZIP Co de Phone Number [address] [phone], [facility] [phone] * EKG 12-LEAD (04/16/2022 12:03 AM CDT) Only the most recent of2 resultswithin the time period is included. Ventricular Rate 92 BPM [facility] Atrial Rate 92 BPM [facility] P-R Interval 138 ms [facility] QRS Duration ms 98 ms [facility] Q-T Interval ms 386 ms [facility] QTC Calculation (Bezet) 477 ms [facility] Calculated P [place] 50 degrees [facility] Calculated R [place] 10 degrees [facility] Calculated T [place] 19 degrees [facility] Interpretation EKG SINUS RHYTHM WITH PREMATURE SUPRAVENTRICULAR COMPLEXES LEFT VENTRICULAR HYPERTROPHY WITH REPOLARIZATION ABNORMALITY ( Sokolow-Garcia , Gianni product ) ABNORMAL ECG WHEN COMPARED WITH ECG OF 22-NOV-2018 08:31, SINUS RHYTHM HAS REPLACED ATRIAL FIBRILLATION NONSPECIFIC T WAVE ABNORMALITY, WORSE IN LATERAL LEADS Confirmed by Pastor Sutton ([id number]) on 04/17/2022 5:36:28 PM [facility] 04/16/2022 12:0 3 AM CDT 04/17/2022 5:36 PM CDT Cameron Villalba MD ECG ORDERABLES [facility] * (ABNORMAL) CREATININE - POCT INTERFACED (04/15/2022 11:43 PM CDT) [facility] Creatinine POCT 0.69 0.30 - 1.30 mg/dL 04/16/2022 12:01 AM CDT [facility] eGFR 88(L) >90 mL/min/1.7 3 m2 04/16/2022 12:01 AM CDT [facility] Blood BLOOD SPECIMEN / Unknown 04/15/2022 11:43 PM CDT 04/16/2022 12:01 AM CDT Cameron Villalba MD LAB - POINT OF CARE ORDERABLES [facility] [address] [place] [address], [facility] [phone] * TYPE + SCREEN PANEL (04/15/2022 11:43 PM CDT) Only the most recent of2 resultswithin the time period is included. [facility] Antibody Screen NEG 12:43 AM CDT [facility] ABO Rh O POS 04/16/2022 12:43 AM CDT [facility] Blood Bank BLOOD SPECIMEN / Unknown Venipuncture / Unknown 04/15/2022 11:43 PM CDT 04/15/2022 11:53 PM CDT Cameron Villalba MD LAB - BLOOD BANK OR DERABLES [facility] [address] [place] [address], [facility] [phone] * (ABNORMAL) CBC W AUTO DIFFERENTIAL (04/15/2022 11:43 PM CDT) Only the most recent of2 resultswithin the time period is included. [facility] WBC 8.4 3.5 - 10.5 10 3/uL 04/16/2022 12:03 AM [facility] RBC 4.04 3.80 - 5.20 10 6/uL 04/16/2022 12:03 AM [facility] Hemoglobin 11.3(L) 12.0 - 15.6 g/dL 04/16/2022 12:03 AM [facility] Hematocrit 35.2 35.0 - 45.0 % 04/16/2022 12:03 AM [facility] MCV 87.1 80.7 - 98.3 fL 04/16/2022 12:03 AM [facility] MCH 28.0 26.7 - 34.0 pg 04/16/2022 12:03 AM [facility] MCHC 32.1 30.8 - 35.9 g/dL 04/16/2022 12:03 AM [facility] Platelet Count 224 150 - 400 10 3/uL 04/16/2022 12:03 AM [facility] RDW-SD 42.0 36.0 - 50.0 fL 04/16/2022 12:03 AM [facility] RDW-CV 13.2 11.2 - 14.8 % 04/16/2022 12:03 AM [facility] MPV 10.6 9.4 - 12.9 fL 04/16/2022 12:03 AM [facility] nRBC Absolute 0.00 0 10 3/uL 04/16/2022 12:03 AM [facility] nRBC Auto 0.0 0 /100 WBC 04/16/2022 12:03 AM [facility] Neutrophils % 49.4 35.0 - 70.0 % 04/16/2022 12:03 AM [facility] Lymphocytes % 33.8 20.0 - 43.0 % 04/16/2022 12:03 AM [facility] Monocytes % 6.8 5.0 - 13.0 % 04/16/2022 12:03 AM [facility] Eosinophils % 9.1(H) 0.0 - 6.0 % 04/16/2022 12:03 AM [facility] Basophil % 0.8 0.0 - 2.0 % 04/16/2022 12:03 AM [facility] Neutrophils Absolute 4.14 1.60 - 7.00 10 3/uL 04/16/2022 12:03 AM [facility] Lymphocyte Absolute 2.83 1.10 - 3.90 10 3/uL 04/16/2022 12:03 AM [facility] Monocytes Absolute 0.57 0.26 - 1.07 10 3/uL 04/16/2022 12:03 AM [facility] Eosinophils Absolute 0.76(H) 0.00 - 0.47 10 3/uL 04/16/2022 12:03 AM [facility] Basophils Absolute 0.07 0.00 - 0.08 10 3/uL 04/16/2022 12:03 AM [facility] Immature Granulocytes % 0.1 0.0 - 1.0 % 04/16/2022 12:03 AM [facility] Immature Granulocytes Absolute 0.01 04/16/2022 12:03 AM [facility] Blood BLOOD SPECIMEN / Unknown Venipuncture / Unknown 04/15/2022 11:43 PM CDT 04/15/2022 11:49 PM CDT Cameron Villalba MD LAB - HEMATOLOGY OR DERABLES [facility] [address] [place] [address], [facility] [phone] * (ABNORMAL) COMPREHENSIVE METABOLIC PANEL (04/15/2022 11:43 PM CDT) Only the most recent of2 resultswithin the time period is included. BUN 9 7 - 26 mg/dL 04/16/2022 12:17 AM [facility] Creatinine 0.77 0.56 - 0.96 mg/dL 04/16/2022 12:17 AM [facility] Sodium 141 136 - 145 mmol/L 04/16/2022 12:17 AM [facility] Potassium 2.9(L) 3.5 - 4.5 mmol/L 04/16/2022 12:17 AM [facility] Chloride 105 98 - 107 mmol/L 04/16/2022 12:17 AM [facility] CO2 23 22 - 29 mmol/L 04/16/2022 12:17 AM [facility] Glucose 100 70 - 115 mg/dL 04/16/2022 12:17 AM [facility] Calcium 8.6 8.4 - 10.2 mg/dL 04/16/2022 12:17 AM [facility] Protein Total 8.2 6.0 - 8.3 g/dL 04/16/2022 12:17 AM [facility] Albumin 3.1(L) 3.4 - 5.0 g/dL 04/16/2022 12:17 AM [facility] Bilirubin Total 0.5 0.2 - 1.2 mg/dL 04/16/2022 12:17 AM [facility] Alkaline Phosphatase 158(H) 40 - 150 U/L 04/16/2022 12:17 AM [facility] ALT 16 5 - 55 U/L 04/16/2022 12:17 AM [facility] AST 18 5 - 34 U/L 04/16/2022 12:17 AM [facility] Anion Gap 16 8 - 18 04/16/2022 12:17 AM [facility] BUN/Creatinine Ratio 12 7 - 23 04/16/2022 12:17 AM [facility] Osmolality Calculated 291 270 - 300 mOsm/kg 04/16/2022 12:17 AM [facility] Albumin/Globulin Ratio 0.6(L) 1.1 - 2.3 04/16/2022 12:17 AM [facility] eGFR by CKD-EPI 78(L) >=90 mL/min/1.7 3 m2 04/16/2022 12:17 AM [facility] Blood BLOOD SPECIMEN / Unknown Venipuncture / Unknown 04/15/2022 11:43 PM CDT 04/15/2022 11:49 PM T Cameron Villalba MD LAB - CHEMISTRY ORD UZMA [facility] [address] [place] [address], [place] [phone] * (ABNORMAL) CK BLOOD (11/24/2018 10:42 AM AMERICAN BOARD CERTIFIED ORTHOTIST) Only the most recent of3 resultswithin the time period is included. [facility] CK Total 9,139(H) 30 - 200 Units/L 11/24/2018 11:25 AM AMERICAN BOARD CERTIFIED ORTHOTIST [facility] Comment: Result obtained by dilution. Blood BLOOD SPECIMEN / Unknown Lab Venipuncture / Unknown 11/24/2018 10:42 AM AMERICAN BOARD CERTIFIED ORTHOTIST 11/24/2018 10:54 AM AMERICAN BOARD CERTIFIED ORTHOTIST Tone Raman MD LAB - CHEMISTRY MONTE[place] VIRK [facility] [address] [place] [address], [facility] [phone] * PROTEIN URINE RANDOM QUANTITATIVE (11/23/2018 3:03 PM AMERICAN BOARD CERTIFIED ORTHOTIST) [facility] Protein Urine 39 Not Established mg/dL 11/23/2018 3:38 PM AMERICAN BOARD CERTIFIED ORTHOTIST [facility] Urine URINE SPECIMEN OBTAINED BY CLEAN CATCH PROCEDURE / Unknown Collection / Unknown 11/23/2018 3:03 PM AMERICAN BOARD CERTIFIED ORTHOTIST 11/23/2018 3:03 PM AMERICAN BOARD CERTIFIED ORTHOTIST Calvin Bush MD LAB - URINE CHEMISTR Y ORDERABLES Performing Organization Address [facility] [place]/[facility] Co de Phone Number [address] [phone] * SODIUM URINE RANDOM (11/23/2018 3:03 PM AMERICAN BOARD CERTIFIED ORTHOTIST) Sodium Urine 43 Not Established mmol/L 11/23/2018 3:36 PM [facility] Urine URINE SPECIMEN OBTAINED BY CLEAN CATCH PROCEDURE / Unknown Collection / Unknown 11/23/2018 3:03 PM AMERICAN BOARD CERTIFIED ORTHOTIST 11/23/2018 3:03 PM AMERICAN BOARD CERTIFIED ORTHOTIST Calvin Bush MD LAB - URINE CHEMISTR Y ORDERABLES Performing Organization Address [facility] [place]/[facility] Co de Phone Number [address] [phone] * UREA NITROGEN URINE RANDOM (11/23/2018 3:03 PM AMERICAN BOARD CERTIFIED ORTHOTIST) Urea Nitrogen Random Urine 1,364 Not Established mg/dL 11/23/2018 3:36 PM AMERICAN BOARD CERTIFIED ORTHOTIST [facility] Urine URINE SPECIMEN OBTAINED BY CLEAN CATCH PROCEDURE / Unknown Collection / Unknown 11/23/2018 3:03 PM AMERICAN BOARD CERTIFIED ORTHOTIST 11/23/2018 3:03 PM AMERICAN BOARD CERTIFIED ORTHOTIST Calvin Bush MD LAB - URINE CHEMISTR Y ORDERABLES Performing Organization Address [facility] [place]/[facility] Co de Phone Number [address] [phone] * CREATININE URINE RANDOM (11/23/2018 3:03 PM AMERICAN BOARD CERTIFIED ORTHOTIST) Creatinine Urine 110 Not Established mg/dL 11/23/2018 3:38 PM AMERICAN BOARD CERTIFIED ORTHOTIST [facility] Comment: Result obtained by dilution. Urine URINE SPECIMEN OBTAINED BY CLEAN CATCH PROCEDURE / Unknown Collection / Unknown 11/23/2018 3:03 PM AMERICAN BOARD CERTIFIED ORTHOTIST 11/23/2018 3:03 PM AMERICAN BOARD CERTIFIED ORTHOTIST Calvin Bush MD LAB - URINE CHEMISTR [place] [address], [facility] [phone] * US RETROPERITONEAL COMPLETE (11/23/2018 1:17 PM AMERICAN BOARD CERTIFIED ORTHOTIST) Anatomical Region Laterality Modality Abdomen Ultrasound 11/23/2018 1:32 PM [employer]ICAN BOARD CERTIFIED ORTHOTIST Impressions 11/23/2018 3:51 PM AMERICAN BOARD CERTIFIED ORTHOTIST IMPRESSION: Normal renal size. Nonobstructing right nephrolithiasis. No evidence of hydronephrosis or solid renal mass. Cholelithiasis. Dictated by Germaine Roldan MD (bank president). This report was approved by Germaine Roldan on 11/23/2018 2:46 PM . I, Dr. BRITTNEE KNOTT M.D. have personally reviewed and interpreted this examination/study. This report was electronically signed by BRITTNEE KNOTT M.D. on 11/23/2018 3:51 PM . Narrative 11/23/2018 3:51 PM AMERICAN [employer]ARD CERTIFIED ORTHOTIST EXAMINATION: Complete retroperitoneal sonogram HISTORY: Acute kidney failure COMPARISON: No prior study is available for comparison. FINDINGS: Right kidney: 12.5 x 4.1 x 4.7 cm Left kidney: 10.1 x 4.7 x 4.8 cm Renal parenchymal echogenicity is normal. There is a renal stone in the right kidney measuring 5 mm in diameter. There is no evidence of a solid renal mass or hydronephrosis. Blood flow is seen within the renal arteries and veins. The bladder is distended. Gallstones are incidentally noted. Procedure Note Brittnee Knott MD - 11/23/2018 EXAMINATION: Complete retroperitoneal sonogram HISTORY: Acute kidney failure COMPARISON: No prior study is available for comparison. FINDINGS: Right kidney: 12.5 x 4.1 x 4.7 cm Left kidney: 10.1 x 4.7 x 4.8 cm Renal parenchymal echogenicity is normal. There is a renal stone in the right kidney measuring 5 mm in diameter. There is no evidence of a solid renal mass or hydronephrosis. Blood flow is seen within the renalarteries and veins. The bladder is distended. Gallstones are incidentally noted. IMPRESSION: Normal renal size. Nonobstructing right nephrolithiasis. No evidence of hydronephrosis or solid renal mass. Cholelithiasis. Dictated by Germaine Roldan MD (bank president). This report was approved by Germaine Roldan on 11/23/2018 2:46 PM . I, Dr. BRITTNEE KNOTT M.D. have personally reviewed and interpretedthis examination/study. This report was electronically signed by BRITTNEE KNOTT M.D. on 11/23/2018 3:51 PM . Calvin Bush MD ORDERABLES * CULTURE URINE (11/22/2018 10:39 AM AMERICAN BOARD CERTIFIED ORTHOTIST) Culture Urine No growth (<100 CFU/mL) THALIA 11/23/2018 3:24 PM AMERICAN BOARD CERTIFIED ORTHOTIST [facility] Urine URINE SPECIMEN OBTAINED BY SINGLE CATHETERIZATION OF URINARY BLADDER / Unknown Collection / Unknown 11/22/2018 10:39 AM AMERICAN BOARD CERTIFIED ORTHOTIST 11/22/2018 10:48 AM AMERICAN BOARD CERTIFIED ORTHOTIST Denise Christopher MD LAB - MICROBIOLOGY O RDERABLES [facility] [address] [place], [place] [address], [facility] [phone] * (ABNORMAL) URINALYSIS W/MICROSCOPIC NO CULTURE (11/22/2018 10:19 AM AMERICAN BOARD CERTIFIED ORTHOTIST) Color UA Yellow Straw, Yellow, Colorless 11/22/2018 10:30 AM [facility] Clarity UA Cloudy(A) Clear, Slt Cloudy 11/22/2018 10:30 AM [facility] Specific [place] UA 1.023 1.005 - 1.030 11/22/2018 10:30 AM [facility] pH UA 5.0 5.0 - 8.0 pH 11/22/2018 10:30 AM [facility] Protein UA 1+(A) Negative mg/dL 11/22/2018 10:30 AM [facility] Glucose UA 1+(A) Negative mg/dL 11/22/2018 10:30 AM [facility] Ketone UA Negative Negative mg/dL 11/22/2018 10:30 AM [facility] Bilirubin UA Negative Negative mg/dL 11/22/2018 10:30 AM [facility] Blood UA 3+(A) Negative 11/22/2018 10:30 AM [facility] Nitrite UA Negative Negative 11/22/2018 10:30 AM [facility] Leukocyte Esterase Negative Negative 11/22/2018 10:30 AM [facility] Urobilinogen UA Negative Negative mg/dL 11/22/2018 10:30 AM [facility] RBC UA 3-5 None Seen, 0-2, 3-5 /HPF 11/22/2018 10:30 AM [facility] WBC UA 6-10(A) None Seen, 0-5 /HPF 11/22/2018 10:30 AM [facility] Bacteria UA 1+(A) None, Trace /HPF 11/22/2018 10:30 AM [facility] Squamous Epithelial Cells UA 3-5(A) None Seen, 0-2 /HPF 11/22/2018 10:30 AM [facility] Mucus UA 2+(A) None, 1+ /LPF 11/22/2018 10:30 AM [facility] Hyaline Casts UA 6-10(A) None Seen, 0-2 /LPF 11/22/2018 10:30 AM [facility] Urine URINE SPECIMEN OBTAINED BY SINGLE CATHETERIZATION OF URINARY BLADDER / Unknown 11/22/2018 10:19 AM [employer] ORTHOTIST 11/22/2018 10:19 AM [facility] [email or web address]] Denise Christopher MD LAB - URINALYSIS ORD ERABLES [facility] [address] [place] [address] * XR CHEST 2VW (11/22/2018 9:41 AM [employer]IED ORTHOTIST) Anatomical Region Laterality Modality Chest Radiographic Mia ging 11/22/2018 9:59 AM [employer] ORTHOTIST Impressions 11/22/2018 1:30 PM [employer]IED ORTHOTIST IMPRESSION: 1.No acute pulmonary process is seen. 2.No radiographic evidence of foreign bodies or artificial devices in the thorax. This report was approved by João Oglesby on 11/22/2018 11:[address] BRITTNEE Armas MD have personally reviewed and interpreted this examination/study. This report was electronically signed by Dr. BRITTNEE LEONARDO MD on 11/22/2018 1:30 PM . Narrative 11/22/2018 1:30 PM [employer]IED ORTHOTIST EXAMINATION: XR CHEST 2VW HISTORY: nonverbal, evaluate for MRI-incompatible devices COMPARISON: None. FINDINGS: The lungs are hypoinflated. No focal consolidation, pleural effusion, or pneumothorax is seen. The cardiomediastinal silhouette is normal. The visible bony thorax shows no acute fractures. Procedure Note Brittnee Leonardo MD - 11/22/2018 EXAMINATION: XR CHEST 2VW HISTORY: nonverbal, evaluate for MRI-incompatible devices COMPARISON: None. FINDINGS: The lungs are hypoinflated. No focal consolidation, pleural effusion, or pneumothorax is seen. The cardiomediastinal silhouette is normal. The visible bony thorax shows no acute fractures. IMPRESSION: 1.No acute pulmonary process is seen. 2.No radiographic evidence of foreign bodies or artificial devices inthe thorax. This report was approved by João Oglesby on 11/22/2018 11:[address] BRITTNEE Armas MD have personally reviewed and interpretedthis examination/study. This report was electronically signed by Dr. BRITTNEE LEONARDO MD on 11/22/2018 1:30 PM . Anika Wiggins MD DIAGNOSTIC IMAGING O RDERABLES * CT ANGIO BRAIN NECK STROKE (11/22/2018 8:22 AM [employer] ORTHOTIST) Anatomical Region Laterality Modality Head Computed Tomogra phy 11/22/2018 8:33 AM [employer] ORTHOTIST Impressions 11/22/2018 1:15 PM [employer]IED ORTHOTIST IMPRESSION: 1.No acute intracranial hemorrhage. 2.Hypoattenuating regions in the bilateral basal ganglia and the left cerebellar hemisphere, compatible with represent age-indeterminate, likely chronic infarcts. 3.No large arterial occlusions identified in the head or neck. 4.Soft plaque in the right carotid bulb. Atherosclerosis of the bilateral carotid bifurcations with mild stenosis. 5.Atherosclerosis calcification with mild stenosis of the left vertebral artery, basilar artery, and right posterior cerebral artery. 6.No distinct focal perfusion abnormality. 7.Thyromegaly with the calcified nodule in the thyroid isthmus. 8.Nonspecific increased density of C5 vertebral body. The above results were discussed with Dr. Abreu by Dr. Masters at 8:35 am on 11/22/2018. This report was approved by Jeremy Masters M.D. on 11/22/2018 11:58 AM . I, Dr. BARB PHAM have personally reviewed and interpreted this examination/study. This report was electronically signed by BARB PHAM on 11/22/2018 1:15 PM . Narrative 11/22/2018 1:15 PM [employer] ORTHOTIST EXAMINATION: 1. Computed tomographic (CT) angiography of the head with contrast 2. CT angiography of the neck with contrast 3. CT cerebral perfusion HISTORY: Code Stroke, altered mental status TECHNIQUE: CT of the head was performed without contrast according to standard protocol. Then CT angiography of the head and neck was obtained after the uneventful administration of 60 mL Isovue 370 intravenous contrast. Three dimensional postprocessing was performed by the technologist and sent to the workstation for review. FINDINGS: No prior study is available for comparison at the time of this dictation. Non-angiographic findings: No acute intra- or extra-axial fluid collections are identified. There is mild cerebral volume loss with associated ex vacuo ventricular dilatation. The basilar cisterns are patent. No mass effect or midline shift is seen. Hypoattenuating regions in the bilateral basal ganglia, right occipital lobe, and the left cerebellar hemisphere represent age-indeterminate, likely chronic, infarctions. Periventricular white matter hypoattenuation is indicative of chronic small vessel ischemic disease. There is mild vascular calcification of the carotid siphons. Barbara bullosa of the middle turbinates bilaterally. Other than bilateral cataract extractions, the visualized portions of the orbits, paranasal sinuses, and mastoids appear normal. No acute fracture is identified. A calcified lesion is seen in the thyroid isthmus measuring up to 1.7 cm. Mild thyromegaly with the left thyroid lobe larger than the right. Degenerative changes are seen in the cervical spine. Angiographic findings: There is atherosclerotic disease of the aortic arch. There is a common origin of the innominate and left common carotid arteries from the aortic arch. There is atherosclerotic calcification of the innominate and subclavian arteries. There is atherosclerotic disease of the right carotid bifurcation and origin of the right internal carotid artery with less than 50 percent focal stenosis. Soft plaques are seen in the right carotid bulb. The right common carotid artery is tortuous with mild atherosclerotic calcification. There is atherosclerotic disease of the left carotid bifurcation and origin of the left internal carotid artery with less than 50 percent focal stenosis. The left common and internal carotid arteries otherwise appear normal. The right vertebral artery is dominant and mildly atherosclerotic. There is atherosclerosis and mild multifocal stenosis of the left vertebral artery. The distal internal carotid arteries appear tortuous. The anterior and middle cerebral arteries appear normal. There is atherosclerotic disease involving the distal vertebral arteries without significant focal stenosis. There is atherosclerosis and mild focal stenosis of the basilar artery. The right posterior cerebral artery is diminutive with mild stenosis. The left posterior cerebral artery is diminutive but patent. No aneurysms or vascular occlusions are identified. Perfusion findings: No distinct perfusion abnormality is identified. Procedure Note Barb Pham MD - 11/22/2018 EXAMINATION: 1. Computed tomographic (CT) angiography of the head with contrast 2. CT angiography of the neck with contrast 3. CT cerebral perfusion HISTORY: Code Stroke, altered mental status TECHNIQUE: CT of the head was performed without contrast according to standard protocol. Then CT angiography of the head and neck was obtained after the uneventful administration of 60 mL Isovue 370 intravenous contrast. Three dimensional postprocessing was performed by the technologist and sent to the workstation for review. FINDINGS: No prior study is available for comparison at the time of this dictation. Non-angiographic findings: No acute intra- or extra-axial fluid collections are identified. Thereis mild cerebral volume loss with associated ex vacuo ventriculardilatation. The basilar cisterns are patent. No mass effect or midline shift isseen. Hypoattenuating regions in the bilateral basal ganglia, right occipital lobe, and the left cerebellar hemisphere represent age-indeterminate, likely chronic, infarctions. Periventricular white matterhypoattenuation is indicative of chronic small vessel ischemic disease. There is mild vascular calcification of the carotid siphons. Barbara bullosa of the middle turbinates bilaterally. Other than bilateral cataractextractions, the visualized portions of the orbits, paranasal sinuses, and mastoids appear normal. No acute fracture is identified. A calcified lesion is seen in the thyroid isthmus measuring up to 1.7cm. Mild thyromegaly with the left thyroid lobe larger than the right. Degenerative changes are seen in the cervical spine. Angiographic findings: There is atherosclerotic disease of the aortic arch. There is a common origin of the innominate and left common carotid arteries from theaortic arch. There is atherosclerotic calcification of the innominate and subclavian arteries. There is atherosclerotic disease of the rightcarotid bifurcation and origin of the right internal carotid artery with lessthan 50 percent focal stenosis. Soft plaques are seen in the right carotid bulb. The right common carotid artery is tortuous with mild atherosclerotic calcification. There is atherosclerotic disease of the left carotid bifurcation and origin of the left internal carotid artery with less than 50 percent focal stenosis. The left common and internal carotid arteries otherwise appear normal. The right vertebral artery is dominant and mildly atherosclerotic. There is atherosclerosis and mild multifocal stenosis of the left vertebral artery. The distal internal carotid arteries appear tortuous. The anterior and middle cerebral arteries appear normal. There is atherosclerotic disease involving the distal vertebral arteries without significant focal stenosis. There is atherosclerosis and mild focal stenosis of thebasilar artery. The right posterior cerebral artery is diminutive with mild stenosis. The left posterior cerebral artery is diminutive but patent.No aneurysms or vascular occlusions are identified. Perfusion findings: No distinct perfusion abnormality is identified. IMPRESSION: 1.No acute intracranial hemorrhage. 2.Hypoattenuating regions in the bilateral basal ganglia and the left cerebellar hemisphere, compatible with represent age-indeterminate,likely chronic infarcts. 3.No large arterial occlusions identified in the head or neck. 4.Soft plaque in the right carotid bulb. Atherosclerosis of thebilateral carotid bifurcations with mild stenosis. 5.Atherosclerosis calcification with mild stenosis of the left vertebral artery, basilar artery, and right posterior cerebral artery. 6.No distinct focal perfusion abnormality. 7.Thyromegaly with the calcified nodule in the thyroid isthmus. 8.Nonspecific increased density of C5 vertebral body. The above results were discussed with Dr. Abreu by Dr. Masters at 8:35 am on 11/22/2018. This report was approved by Jeremy Masters M.D. on 11/22/2018 11:[address] BARB Armas have personally reviewed and interpreted this examination/study. This report was electronically signed by BARB PHAM on11/22/2018 1:15 PM . Denise Christopher MD CT ORDERABLES * CT CEREBRAL PERFUSION ANALYSIS (11/22/2018 8:22 AM [employer] ORTHOTIST) Anatomical Region Laterality Modality Head Computed Tomogra phy 11/22/2018 8:33 AM [employer]IED ORTHOTIST Impressions 11/22/2018 1:15 PM [employer] C[employer]IED ORTHOTIST IMPRESSION: 1.No acute intracranial hemorrhage. 2.Hypoattenuating regions in the bilateral basal ganglia and the left cerebellar hemisphere, compatible with represent age-indeterminate, likely chronic infarcts. 3.No large arterial occlusions identified in the head or neck. 4.Soft plaque in the right carotid bulb. Atherosclerosis of the bilateral carotid bifurcations with mild stenosis. 5.Atherosclerosis calcification with mild stenosis of the left vertebral artery, basilar artery, and right posterior cerebral artery. 6.No distinct focal perfusion abnormality. 7.Thyromegaly with the calcified nodule in the thyroid isthmus. 8.Nonspecific increased density of C5 vertebral body. The above results were discussed with Dr. Abreu by Dr. Masters at 8:35 am on 11/22/2018. This report was approved by Jeremy Masters M.D. on 11/22/2018 11:58 AM . I, Dr. BARB PHAM have personally reviewed and interpreted this examination/study. This report was electronically signed by BARB PHAM on 11/22/2018 1:15 PM . Narrative 11/22/2018 1:15 PM [employer]IED ORTHOTIST EXAMINATION: 1. Computed tomographic (CT) angiography of the head with contrast 2. CT angiography of the neck with contrast 3. CT cerebral perfusion HISTORY: Code Stroke, altered mental status TECHNIQUE: CT of the head was performed without contrast according to standard protocol. Then CT angiography of the head and neck was obtained after the uneventful administration of 60 mL Isovue 370 intravenous contrast. Three dimensional postprocessing was performed by the technologist and sent to the workstation for review. FINDINGS: No prior study is available for comparison at the time of this dictation. Non-angiographic findings: No acute intra- or extra-axial fluid collections are identified. There is mild cerebral volume loss with associated ex vacuo ventricular dilatation. The basilar cisterns are patent. No mass effect or midline shift is seen. Hypoattenuating regions in the bilateral basal ganglia, right occipital lobe, and the left cerebellar hemisphere represent age-indeterminate, likely chronic, infarctions. Periventricular white matter hypoattenuation is indicative of chronic small vessel ischemic disease. There is mild vascular calcification of the carotid siphons. Barbara bullosa of the middle turbinates bilaterally. Other than bilateral cataract extractions, the visualized portions of the orbits, paranasal sinuses, and mastoids appear normal. No acute fracture is identified. A calcified lesion is seen in the thyroid isthmus measuring up to 1.7 cm. Mild thyromegaly with the left thyroid lobe larger than the right. Degenerative changes are seen in the cervical spine. Angiographic findings: There is atherosclerotic disease of the aortic arch. There is a common origin of the innominate and left common carotid arteries from the aortic arch. There is atherosclerotic calcification of the innominate and subclavian arteries. There is atherosclerotic disease of the right carotid bifurcation and origin of the right internal carotid artery with less than 50 percent focal stenosis. Soft plaques are seen in the right carotid bulb. The right common carotid artery is tortuous with mild atherosclerotic calcification. There is atherosclerotic disease of the left carotid bifurcation and origin of the left internal carotid artery with less than 50 percent focal stenosis. The left common and internal carotid arteries otherwise appear normal. The right vertebral artery is dominant and mildly atherosclerotic. There is atherosclerosis and mild multifocal stenosis of the left vertebral artery. The distal internal carotid arteries appear tortuous. The anterior and middle cerebral arteries appear normal. There is atherosclerotic disease involving the distal vertebral arteries without significant focal stenosis. There is atherosclerosis and mild focal stenosis of the basilar artery. The right posterior cerebral artery is diminutive with mild stenosis. The left posterior cerebral artery is diminutive but patent. No aneurysms or vascular occlusions are identified. Perfusion findings: No distinct perfusion abnormality is identified. Procedure Note Barb Pham MD - 11/22/2018 EXAMINATION: 1. Computed tomographic (CT) angiography of the head with contrast 2. CT angiography of the neck with contrast 3. CT cerebral perfusion HISTORY: Code Stroke, altered mental status TECHNIQUE: CT of the head was performed without contrast according to standard protocol. Then CT angiography of the head and neck was obtained after the uneventful administration of 60 mL Isovue 370 intravenous contrast. Three dimensional postprocessing was performed by the technologist and sent to the workstation for review. FINDINGS: No prior study is available for comparison at the time of this dictation. Non-angiographic findings: No acute intra- or extra-axial fluid collections are identified. Thereis mild cerebral volume loss with associated ex vacuo ventriculardilatation. The basilar cisterns are patent. No mass effect or midline shift isseen. Hypoattenuating regions in the bilateral basal ganglia, right occipital lobe, and the left cerebellar hemisphere represent age-indeterminate, likely chronic, infarctions. Periventricular white matterhypoattenuation is indicative of chronic small vessel ischemic disease. There is mild vascular calcification of the carotid siphons. Barbara bullosa of the middle turbinates bilaterally. Other than bilateral cataractextractions, the visualized portions of the orbits, paranasal sinuses, and mastoids appear normal. No acute fracture is identified. A calcified lesion is seen in the thyroid isthmus measuring up to 1.7cm. Mild thyromegaly with the left thyroid lobe larger than the right. Degenerative changes are seen in the cervical spine. Angiographic findings: There is atherosclerotic disease of the aortic arch. There is a common origin of the innominate and left common carotid arteries from theaortic arch. There is atherosclerotic calcification of the innominate and subclavian arteries. There is atherosclerotic disease of the rightcarotid bifurcation and origin of the right internal carotid artery with lessthan 50 percent focal stenosis. Soft plaques are seen in the right carotid bulb. The right common carotid artery is tortuous with mild atherosclerotic calcification. There is atherosclerotic disease of the left carotid bifurcation and origin of the left internal carotid artery with less than 50 percent focal stenosis. The left common and internal carotid arteries otherwise appear normal. The right vertebral artery is dominant and mildly atherosclerotic. There is atherosclerosis and mild multifocal stenosis of the left vertebral artery. The distal internal carotid arteries appear tortuous. The anterior and middle cerebral arteries appear normal. There is atherosclerotic disease involving the distal vertebral arteries without significant focal stenosis. There is atherosclerosis and mild focal stenosis of thebasilar artery. The right posterior cerebral artery is diminutive with mild stenosis. The left posterior cerebral artery is diminutive but patent.No aneurysms or vascular occlusions are identified. Perfusion findings: No distinct perfusion abnormality is identified. IMPRESSION: 1.No acute intracranial hemorrhage. 2.Hypoattenuating regions in the bilateral basal ganglia and the left cerebellar hemisphere, compatible with represent age-indeterminate,likely chronic infarcts. 3.No large arterial occlusions identified in the head or neck. 4.Soft plaque in the right carotid bulb. Atherosclerosis of thebilateral carotid bifurcations with mild stenosis. 5.Atherosclerosis calcification with mild stenosis of the left vertebral artery, basilar artery, and right posterior cerebral artery. 6.No distinct focal perfusion abnormality. 7.Thyromegaly with the calcified nodule in the thyroid isthmus. 8.Nonspecific increased density of C5 vertebral body. The above results were discussed with Dr. Abreu by Dr. Masters at 8:35 am on 11/22/2018. This report was approved by Jeremy Masters M.D. on 11/22/2018 11:58 AM. I, Dr. BARB PHAM have personally reviewed and interpreted this examination/study. This report was electronically signed by BARB PHAM on11/22/2018 1:15 PM . Calvin Bush MD CT ORDERABLES * (ABNORMAL) CREATININE BLOOD - POCT (IP) [facility] (11/22/2018 8:15 AM [employer]IED ORTHOTIST) Creatinine POCT 1.77(A) 0.3 - 1.3 mg/dL [facility] PO[facility] eGFR POCT 36(A) 60 ml/min [facility] Blood BLOOD SPECIMEN / Unknown 11/22/2018 8:15 AM [employer]IED ORTHOTIST Shiraz Correa MD LAB - POINT OF CARE ORDERABLES [facility] [address] [phone] * CT BRAIN STROKE PROTOCOL (11/22/2018 8:09 AM [employer] C[employer]IFIED ORTHOTIST) Anatomical Region Laterality Modality Head Computed Tomogra phy 11/22/2018 8:13 AM [employer] C[employer]IFIED ORTHOTIST Impressions 11/22/2018 8:26 AM [employer] CERTIFIED ORTHOTIST IMPRESSION: 1.No acute intracranial hemorrhage, midline shift, or significant mass effect. 2.Hypoattenuating regions in the bilateral basal ganglia and the left cerebellar hemisphere represent age-indeterminate, likely chronic, infarctions. The above results were discussed with Dr. Abreu by Dr. Masters at 8:19 AM on 11/22/2018. This report was approved by Jeremy Masters M.D. on 11/22/2018 8:26 AM . I, Dr. BARB PHAM have personally reviewed and interpreted this examination/study. This report was electronically signed by BARB PHAM on 11/22/2018 8:26 AM . Narrative 11/22/2018 8:26 AM [employer] CERTIFIED ORTHOTIST EXAMINATION: Computed tomography (CT) of the head without contrast HISTORY: Code Stroke TECHNIQUE: CT of the head was performed without contrast according to standard protocol. FINDINGS: No prior study is available for comparison at the time of this dictation. No acute intra- or extra-axial fluid collections are identified. There is mild cerebral volume loss with associated ex vacuo ventricular dilatation. The basilar cisterns are patent. No mass effect or midline shift is seen. Hypoattenuating regions in the bilateral basal ganglia, right occipital lobe, and the left cerebellar hemisphere represent age-indeterminate, likely chronic, infarctions. Periventricular white matter hypoattenuation is indicative of chronic small vessel ischemic disease. There is mild vascular calcification of the carotid siphons. Other than bilateral cataract extractions, the visualized portions of the orbits, paranasal sinuses, and mastoids appear normal. No acute fracture is identified. Procedure Note Barb Pham MD - 11/22/2018 EXAMINATION: Computed tomography (CT) of the head without contrast HISTORY: Code Stroke TECHNIQUE: CT of the head was performed without contrast according to standard protocol. FINDINGS: No prior study is available for comparison at the time of this dictation. No acute intra- or extra-axial fluid collections are identified. Thereis mild cerebral volume loss with associated ex vacuo ventriculardilatation. The basilar cisterns are patent. No mass effect or midline shift isseen. Hypoattenuating regions in the bilateral basal ganglia, right occipital lobe, and the left cerebellar hemisphere represent age-indeterminate, likely chronic, infarctions. Periventricular white matterhypoattenuation is indicative of chronic small vessel ischemic disease. There is mild vascular calcification of the carotid siphons. Other than bilateral cataract extractions, the visualized portions of the orbits, paranasal sinuses, and mastoids appear normal. No acute fracture is identified. IMPRESSION: 1.No acute intracranial hemorrhage, midline shift, or significant mass effect. 2.Hypoattenuating regions in the bilateral basal ganglia and the left cerebellar hemisphere represent age-indeterminate, likely chronic, infarctions. The above results were discussed with Dr. Abreu by Dr. Masters at 8:19 AM on 11/22/2018. This report was approved by Jeremy Masters M.D. on 11/22/2018 8:26 AM. I, Dr. BARB PHAM have personally reviewed and interpreted this examination/study. This report was electronically signed by BARB PHAM on11/22/2018 8:26 AM . Denise Christopher MD CT ORDERABLES Care Teams Materials Inspector Relationship Specialty Start Date End Date Clyde Monge MD [address] [address] PCP - General Family Medicine 04/16/22
[2024-11-01 12:12] LABS: Glucose Point of Care 103 mg/dl (65-105)
--- NOTE | 2024-11-01 12:20 | ECG_ITS ---
Test Date: 2024-11-01 12:15:40 Measurements Intervals [place] Rate: 51 P: 85 OK: 154 QRS: 19 QRSD: 101 T: 40 QT: 457 QTc: 422 Interpretive Statements SINUS BRADYCARDIA WITH SINUS ARRHYTHMIA BASELINE ARTIFACT- I, II, III, AVR, AVL, AVF, V1-V6 BORDERLINE ECG No previous ECG available for comparison Electronically Signed On 11-01-2024 12:51:47 [employer] by Marco Antonio Kurtz D.O.
[2024-11-01 13:37] LABS: Basophils Absolute Auto 0.1 K/mm3 (0.0-0.1); Basophils Percent Auto 0.6 % (0.2-1.2); Eosinophils Absolute Auto 0.4 K/mm3 (0-0.3); Eosinophils Percent Auto 4.1 % (0-4.4); Hematocrit 37.7 % (37.0-47.0); Hemoglobin 12.2 g/dL (12.0-15.0); Immature Granulocyte Absolute 0.04 K/mm3 (0.00-0.031); Immature Granulocyte Percent A 0.4 % (0-0.5); Lymphocytes Absolute Auto 1.68 K/mm3 (0.9-3.2); Lymphocytes Percent Auto 18.8 % (18.3-44.2); Mean Corpuscular HGB Conc 32.4 g/dl (32-36); Mean Corpuscular Hemoglobin 30.6 pg (26-34); Mean Corpuscular Volume 94.5 fl (80-100); Mean Platelet Volume 10.1 fl (7.4-10.4); Monocytes Absolute Auto 0.6 K/mm3 (0.1-0.6); Monocytes Percent Auto 7.1 % (2.6-8.5); Neutrophils Absolute Auto 6.2 K/mm3 (1.3-6.7); Platelet Count Result 257 k/mm3 (150-375); Red Blood Count 3.99 M/mm3 (4.2-5.4); Red Cell Distribution Width 12.4 % (11.5-14.5)
[2024-11-01 13:52] LABS: Add Urine Microscopic? YES; Appearance Urine Clear (Clear); Bacteria Urine None Seen /hpf; Bilirubin Urine Negative (Negative); Blood Urine Negative (Negative); Color Urine Yellow (Yellow); Glucose Urine UA Negative (Negative); Ketones Urine Negative (Negative); Leukocyte Esterase Ur Trace LEU/UL (Negative); Nitrate Urine Negative (Negative); Protein Urine Negative (Negative); Squamous Epithelial Cell Urine None Seen /hpf (Few); WBC Urine 0-5 /hpf (0-3)
[2024-11-01 13:55] LABS: Alanine Aminotransferase 14 U/L (6-35); Albumin Level 3.8 g/dL (3.5-5.1); Alkaline Phosphatase 116 U/L (38-126); Anion Gap 7 mmol/L (4-12); Aspartate Amino Transferase 22 U/L (14-36); Bilirubin,Total 0.5 mg/dL (0.2-1.3); Blood Urea Nitrogen 19 mg/dL (7-17); Calcium 9.3 mg/dL (8.4-10.2); Carbon Dioxide 29 mmol/L (22-30); Chloride 103 mmol/L (98-107); Estimated CRCL calculation 33 ml/min; Estimated Glomerular Filt Rate > 60; Glucose 102 mg/dL (65-110); Potassium 4.6 mmol/L (3.4-5.0); Sodium 139 mmol/L (137-145)
[2024-11-01 14:07] LABS: Lactic Acid Reflex 2.1 mmol/L (0.7-2.0)
[2024-11-01 14:12] LABS: Prothrombin Time 13.8 Seconds (11.1-14.7)
[2024-11-01 14:13] LABS: Partial Thromboplastin Time 29.2 Seconds (22.3-36.8)
--- OUTSIDE RECORDS SUMMARY | 2024-11-01 15:22 | XMS_ITS | Clinical Summary ---
Author Organization [facility] [employer] Address [address] [place] [address] Care Team Providers Care Instant Powder Supervisor Name Role Phone Clyde Monge MD Primary Care Provider Source Comments [facility] [employer],non-owned Affiliates and Associated Physician Practices is amultiple site organization consisting of ambulatory clinics and hospital sitesin [place], [place] and [place]. This disclosure is being madepursuant to the Care Everywhere program and may not contain all information available regarding this patient. Last updated 18.[facility] [employer] Allergies No known active allergies Medications * [...] cm (5' 9 ) 11/22/2018 4:48 PM HEAD OF ACQUISITIONS Body Mass Index 23.1 11/22/2018 4:48 PM HEAD OF ACQUISITIONS Plan of Treatment Health Maintenance Due Date [...] 7 - 26 mg/dL 04/19/2022 3:04 AM [facility] Creatinine 0.97(H) 0.56 - 0.96 mg/dL 04/19/2022 3:04 AM [facility] Sodium 142 136 - 145 mmol/L 04/19/2022 3:04 AM [facility] Potassium 3.2(L) 3.5 - 4.5 mmol/L 04/19/2022 3:04 AM [facility] Chloride 109(H) 98 - 107 mmol/L 04/19/2022 3:04 AM [facility] CO2 24 22 - 29 mmol/L 04/19/2022 3:04 AM [facility] Glucose 96 70 - 115 mg/dL 04/19/2022 3:04 AM [facility] Calcium 8.2(L) 8.4 - 10.2 mg/dL 04/19/2022 3:04 AM [facility] Anion Gap 12 8 - 18 04/19/2022 3:04 AM [facility] BUN/Creatinine Ratio 16 7 - 23 04/19/2022 3:04 AM [facility] Osmolality Calculated 295 270 - 300 mOsm/kg 04/19/2022 3:04 AM [facility] eGFR by CKD-EPI 59(L) >=90 mL/min/1.7 3 m2 04/19/2022 3:04 AM [facility] Blood BLOOD SPECIMEN / Unknown Lab Venipuncture / Unknown 04/19/2022 2:23 AM CDT 04/19/2022 2:40 AM T Vijay Garcia MD LAB - CHEMISTRY [facility] [address] [place] [address], [facility] [phone] * (ABNORMAL) HEMOGLOBIN A1C (04/18/2022 12:31 AM CDT) Hemoglobin A1c 6.2(H) <=5.6 % 04/18/2022 3:45 PM CDT [facility] Estimated Average Glucose 131 mg/dL 04/18/2022 3:45 PM CDT [facility] Comment: HbA1c Interpretation: Normal : < 5.7% Pre-diabetes: 5.7-6.4% Diabetes: Equal to or greater than 6.5% Test results diagnostic of diabetes should be repeated for confirmation. Treatment target values recommended by ADA and other clinical organizations should be used to evaluate metabolic control in patients. Reference: [place] [employer], Standards of Care in [...] Garcia MD LAB - CHEMISTRY [place] [facility] [address] [place] [address], [facility] [phone] from Last 3 Months or Most Recently Relevant to Health Maintenance Advance Directives * Full Code (Latest Code Status on File) Date Activated Date Inactivated Comments 04/16/2022 12:06 AM 04/19/2022 3:36 PM * Full Code Date Activated Date Inactivated Comments 11/22/2018 9:21 AM 11/24/2018 6:11 PM Care Teams Instant Powder Supervisor Relationship Specialty Start Date End Date Clyde Monge MD [address] [place] [address] PCP - General Family Medicine 04/16/22
--- OUTSIDE RECORDS SUMMARY | 2024-11-01 15:23 | XMS_ITS | Referral Summary ---
Author Organization [facility] Address [address] [place] [address] Care Team Providers Care Flat Sorting Machine Clerk Name Role Phone Clyde Monge MD Primary Care Provider Source Comments [facility],non-owned Affiliates and Associated Physician Practices is amultiple site organization consisting of ambulatory clinics and hospital sitesin [place], [place], [place] and [place]. This disclosure is being madepursuant to the Care Everywhere program and may not contain all information available regarding this patient. Last updated 18.[facility] Allergies No known active allergies Medications * [...] cm (5' 9 ) 11/22/2018 4:48 PM CONTAINER PACKER OPERATOR Body Mass Index 23.1 11/22/2018 4:48 PM CONTAINER PACKER OPERATOR Functional Status Functional Status Response Date of [...] - 26 mg/dL 04/19/2022 3:04 AM [facility] Creatinine 0.97(H) 0.56 - 0.96 mg/dL 04/19/2022 3:04 AM [facility] Sodium 142 136 - 145 mmol/L 04/19/2022 3:[address] [facility] Potassium 3.2(L) 3.5 - 4.5 mmol/L 04/19/2022 3:04 AM CDT [facility] Chloride 109(H) 98 - 107 mmol/L 04/19/2022 3:04 AM [facility] CO2 24 22 - 29 mmol/L 04/19/2022 3:04 AM [facility] Glucose 96 70 - 115 mg/dL 04/19/2022 3:04 AM [facility] Calcium 8.2(L) 8.4 - 10.2 mg/dL 04/19/2022 3:04 AM [facility] Anion Gap 12 8 - 18 04/19/2022 3:04 AM [facility] BUN/Creatinine Ratio 16 7 - 23 04/19/2022 3:04 AM [facility] Osmolality Calculated 295 270 - 300 mOsm/kg 04/19/2022 3:04 AM [facility] eGFR by CKD-EPI 59(L) >=90 mL/min/1.7 3 m2 04/19/2022 3:04 AM [facility] Blood BLOOD SPECIMEN / Unknown Lab Venipuncture / Unknown 04/19/2022 2:23 AM CDT 04/19/2022 2:40 AM CDT Vijay Garcia MD LAB - CHEMISTRY [facility] Organization Address City/State/ZIP Co de Phone Number [facility] [address] [place] [address], [facility] [phone] * (ABNORMAL) HEMOGLOBIN A1C (04/18/2022 12:31 AM CDT) Hemoglobin A1c 6.2(H) <=5.6 % 04/18/2022 3:45 PM [facility] Estimated Average Glucose 131 mg/dL 04/18/2022 3:45 PM [facility] Comment: HbA1c Interpretation: Normal : < 5.7% Pre-diabetes: 5.7-6.4% Diabetes: Equal to or greater than 6.5% Test results diagnostic of diabetes should be repeated for confirmation. Treatment target values recommended by ADA and other clinical organizations should be used to evaluate metabolic control in patients. Reference: [place] Diabetes Association, Standards of Care in Diabetes [...] Garcia MD LAB - CHEMISTRY [facility]TE[facility] Organization Address City/State/ZIP Co de Phone Number [facility] [address] [place] [address], [facility] [phone] from Last 3 Months or Most Recently Relevant to Health Maintenance Advance Directives * Full Code (Latest Code Status on File) Date Activated Date Inactivated Comments 04/16/2022 12:06 AM 04/19/2022 3:36 PM * Full Code Date Activated Date Inactivated Comments 11/22/2018 9:21 AM 11/24/2018 6:11 PM Care Teams Flat Sorting Machine Clerk Relationship Specialty Start Date End Date Clyde Monge MD [address] [place] [address] PCP - General Family Medicine 04/16/22
--- OUTSIDE RECORDS SUMMARY | 2024-11-01 15:23 | XMS_ITS | Encounter Summary ---
Author Organization [facility] Address [facility] [place] [address] Care Team Providers Care Cable Mechanic Name Role Phone None, Provider Primary Care Provider Lucio grajeda Encounter Details Date Type Department Care Team (Late st Contact Info) Description 12/15/2018 Hospital Follow-up Call [facility] Inpatient Rehabilitation [place], [place] [id number] Karen Selby RN Social History Tobacco Use [...] on file Legal Sex Female 3:27 PM CUSTOMS HOUSE BROKER Gender Identity Not on file Sexual Orientation Straight 11/24/2018 10 :43 PM CUSTOMS HOUSE BROKER documented as of this encounter Functional Status * RETIRED Are you deaf or do you have serious difficulty hearing Answer Date of Assessment Author Status No 11/24/2018 10:30 PM CUSTOMS HOUSE BROKER Acti ve * RETIRED Are you blind or do you have serious difficulty seeing, even when wearing glasses? Answer Date of Assessment Author Status No 11/24/2018 10:30 PM CUSTOMS HOUSE BROKER Acti ve * Do you have serious difficulty walking or climbing stairs? Answer Date of Assessment Author Status Yes 11/24/2018 10:30 PM CUSTOMS HOUSE BROKER Ritika Weaver RN Active * Do you [...] on filedocumented in this encounter Care Teams Cable Mechanic Relationship Specialty Start Date End Date None, Provider, PCP - General 11/26/18 documented as of this encounter
--- OUTSIDE RECORDS SUMMARY | 2024-11-01 15:23 | XMS_ITS | Clinical Summary ---
Author Organization 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 11/24/2018 Atrial fibrillation ([facility]) 11/22/2018 Diabetes mellitus ([facility]) 11/22/2018 Resolved Problems Problem Noted Date [...] on file Legal Sex Female 3:27 PM LICENSING COORDINATOR Gender Identity Not on file Sexual Orientation Straight 11/24/2018 10 :43 PM LICENSING COORDINATOR Last Filed Vital Signs Vital Sign Reading [...] cm (5' 6 ) 11/24/2018 10:28 PM LICENSING COORDINATOR Body Mass Index 30.18 11/24/2018 10:28 PM LICENSING COORDINATOR Plan of Treatment Health Maintenance Due Date [...] 7.5(H) <5.7 % 12/23/2018 9:13 AM CDT [facility] Comment: INCREASED RISK OF DIABETES<5.7% NON-DIABETES5.7-6.4% INCREASED RISK FOR FUTURE DIABETES> OR = 6.5 CONSISTENT WITH DIABETES STANDARDS OF MEDICAL CARE [facility](SUPP 1[facility] S1-S61,2010 WHOLE BLOOD SPECIMEN / Unknown 12/22/2018 12:00 PM CDT 12/22/2018 2:38 PM CDT us Generic Conversion Md [facility] Final R esult [facility] [address] [place] [address], * (ABNORMAL) LIPID PANEL (12/22/2018 12:00 PM CDT) CHOLESTEROL 178 <200.0 MG/DL 12/22/2018 3:42 PM CDT [facility] TRIGLYCERIDES 96 <150 MG/DL 12/22/2018 3:42 PM CDT [facility] HDL 49 >40.0 MG/DL 12/22/2018 3:42 PM CDT [facility] LDL (CALCULATED) 110(H) <100 MG/DL 12/22/2018 3:42 PM CDT [facility] NON HDL CHOLESTEROL 129 <130 MG/DL 12/22/2018 3:42 PM CDT [facility] CHOL/HDL RATIO 3.6 0.0 - 4.5 12/22/2018 3:42 PM CDT [facility] VLDL CALCULATION 19 5 - 55 MG/DL 12/22/2018 3:42 PM CDT [facility] LIPID INTERPRETATION 12/22/2018 3:42 PM CDT [facility] Comment: NIH CONCENSUS REPORT RECOMMENDATIONS: [...] LABORATORY Final R esult Performing Organization Address City/State/[facility] Co de Phone Number [facility] [address] [place] [address], from Last 3 Months or Most Recently Relevant to Health Maintenance Insurance MEDICARE MEDICAID Advance Directives * Full Code (Latest Code Status on File) Date Activated Date Inactivated Comments 11/24/2018 11:18 PM 12/09/2018 1:48 PM Care Teams Manager Outpatient Relationship Specialty Start Date End Date None, Provider, PCP - General 11/26/18
--- OUTSIDE RECORDS SUMMARY | 2024-11-01 15:23 | XMS_ITS | Patient Health Summary ---
Author Organization [facility] Address [address] [place] [address] Care Team Providers Care Wood Heel Flap Inserter Name Role Phone Clyde Monge MD Primary Care Provider [phone] Note from [facility] [place]non-owned Affiliates and Associated Physician Practices is amultiple site organization consisting of ambulatory clinics and hospital sitesin [place], [place], [place] and [place]. This disclosure is being madepursuant to the Care Everywhere program and may not contain all information available regarding this patient. Last updated 18.[facility] Allergies No known active allergies* Unable [...] cm (5' 9 ) 11/22/2018 4:48 PM ARMY MANAGER Body Mass Index 23.1 11/22/2018 4:48 PM ARMY MANAGER Procedures * CARDIAC EKG ORDER(Performed 04/20/2022) * [...] (HCC) * CREATININE BLOOD - POCT (IP) [facility](Performed 11/22/2018) Performed for Cerebrovascular accident (CVA) due [...] - 115 mg/dL 04/19/2022 12:28 PM CDT [facility] Specimen Type Cap Fingerstick 2021 12:28 PM CDT [facility] Blood BLOOD SPECIMEN / Unknown 04/19/2022 12:23 PM CDT 04/19/2022 12:28 PM CDT Shiraz Correa MD LAB - POINT OF CARE ORDERABLES [facility] [address] [place] [address], [facility] [phone] * (ABNORMAL) CBC W/O DIFFERENTIAL (04/19/2022 2:23 AM CDT) Only the most recent of5 resultswithin the time period is included. Pathologist [facility] [place] WBC 6.3 3.5 - 10.5 10 3/uL 04/19/2022 2:51 AM [facility] RBC 3.42(L) 3.80 - 5.20 10 6/uL 04/19/2022 2:51 AM [facility] Hemoglobin 9.9(L) 12.0 - 15.6 g/dL 04/19/2022 2:51 AM [facility] Hematocrit 29.7(L) 35.0 - 45.0 % 04/19/2022 2:51 AM [facility] MCV 86.8 80.7 - 98.3 fL 04/19/2022 2:51 AM [facility] MCH 28.9 26.7 - 34.0 pg 04/19/2022 2:51 AM [facility] MCHC 33.3 30.8 - 35.9 g/dL 04/19/2022 2:51 AM [facility] Platelet Count 198 150 - 400 10 3/uL 04/19/2022 2:51 AM [facility] RDW-SD 42.3 36.0 - 50.0 fL 04/19/2022 2:51 AM [facility] RDW-CV 13.3 11.2 - 14.8 % 04/19/2022 2:51 AM [facility] MPV 9.9 9.4 - 12.9 fL 04/19/2022 2:51 AM [facility] nRBC Absolute 0.00 0 10 3/uL 04/19/2022 2:51 AM [facility] nRBC Auto 0.0 0 /100 WBC 04/19/2022 2:51 AM [facility] Blood BLOOD SPECIMEN / Unknown Lab Venipuncture / Unknown 04/19/2022 2:23 AM CDT 04/19/2022 2:40 AM [facility] Vijay Garcia MD LAB - HEMATOLOGY ORD ERABLES [facility] [address] [place] [id number], [facility] [phone] * (ABNORMAL) BASIC METABOLIC PANEL (CALCIUM TOTAL) (04/19/2022 2:23 AM CDT) Only the most recent of4 resultswithin the time period is included. BUN 16 7 - 26 mg/dL 04/19/2022 3:04 AM [facility] Creatinine 0.97(H) 0.56 - 0.96 mg/dL 04/19/2022 3:04 AM [facility] Sodium 142 136 - 145 mmol/L 04/19/2022 3:04 AM [facility] Potassium 3.2(L) 3.5 - 4.5 mmol/L 04/19/2022 3:04 AM [facility] Chloride 109(H) 98 - 107 mmol/L 04/19/2022 3:04 AM [facility] CO2 24 22 - 29 mmol/L 04/19/2022 3:04 AM [facility] Glucose 96 70 - 115 mg/dL 04/19/2022 3:04 AM [facility] Calcium 8.2(L) 8.4 - 10.2 mg/dL 04/19/2022 3:04 AM [facility] Anion Gap 12 8 - 18 04/19/2022 3:04 AM [facility] BUN/Creatinine Ratio 16 7 - 23 04/19/2022 3:04 AM [facility] Osmolality Calculated 295 270 - 300 mOsm/kg 04/19/2022 3:04 AM [facility] eGFR by CKD-EPI 59(L) >=90 mL/min/1.7 3 m2 04/19/2022 3:04 AM [facility] Blood BLOOD SPECIMEN / Unknown Lab Venipuncture / Unknown 04/19/2022 2:23 AM CDT 04/19/2022 2:40 AM CDT Vijay Garcia MD LAB - CHEMISTRY ORDE [facility] Organization Address City/State/ZIP Co de Phone Number [facility] [address] [place] [address], [facility] [phone] * PHOSPHORUS BLOOD (04/19/2022 2:23 AM CDT) Only the most recent of2 resultswithin the time period is included. Phosphorus 3.0 2.9 - 5.1 mg/dL 04/19/2022 3:04 AM CDT [facility] Blood BLOOD SPECIMEN / Unknown Lab Venipuncture / Unknown 04/19/2022 2:23 AM CDT 04/19/2022 2:40 AM CDT Vijay Garcia MD LAB - CHEMISTRY [facility] Performing Organization Address City/[facility]/ZIP Co de Phone Number [address] [address], [facility] [phone] * MAGNESIUM BLOOD (04/19/2022 2:23 AM CDT) Only the most recent of4 resultswithin the time period is included. Magnesium 2.0 1.6 - 2.6 mg/dL 04/19/2022 3:04 AM CDT [facility] Blood BLOOD SPECIMEN / Unknown Lab Venipuncture / Unknown 04/19/2022 2:23 AM CDT 04/19/2022 2:40 AM CDT Vijay Garcia MD LAB - CHEMISTRY [facility] Performing Organization Address [facility]/ZIP Co de Phone Number [address] [address], [place] [phone] * MRI BRAIN WWO CONTRAST (04/18/2022 10:54 [...] or amyloid angiopathy. Report dictated by Poly Nichlos MD (radiology therapist). I, Dr. LAURIE FRIEDMAN, M.D. have personally [...] angiopathy. Report dictated by Poly Nichols MD (radiology therapist). I, Dr. LAURIE FRIEDMAN M.D. have personally reviewed and interpreted this examination/study. This report was electronically signed by LAURIE FRIEDMAN M.D. on 04/19/2022 11:20 AM . Shiraz Correa MD MR ORDERABLES * TROPONIN I (04/18/2022 12:31 AM CDT) Only the most recent of7 resultswithin the time period is included. Troponin I <0.010 <0.032 ng/mL 04/18/2022 1:33 AM CDT [facility] Blood BLOOD SPECIMEN / Unknown Venipuncture / Unknown 04/18/2022 12:31 AM CDT 04/18/2022 12:44 AM CDT Shiraz Correa MD LAB - CHEMISTRY [facility] Organization Address City/State/ZIP Co de Phone Number [address] [address], [facility] [phone] * (ABNORMAL) HEMOGLOBIN A1C (04/18/2022 12:31 AM CDT) Only the most recent of2 resultswithin the time period is included. Hemoglobin A1c 6.2(H) <=5.6 % 04/18/2022 3:45 PM CDT [facility] Estimated Average Glucose 131 mg/dL 04/18/2022 3:45 PM CDT [facility] Comment: HbA1c Interpretation: Normal : < 5.7% Pre-diabetes: 5.7-6.4% Diabetes: Equal to or greater than 6.5% Test results diagnostic of diabetes should be repeated for confirmation. Treatment target values recommended by ADA and other clinical organizations should be used to evaluate metabolic control in patients. Reference: [place] Diabetes Association, Standards of Care in Diabetes [...] Vijay Garcia MD LAB - CHEMISTRY ORDE [facility] Organization Address City/State/ZIP Co de Phone Number [facility] [address] [place] [address], [facility] [phone] * MRI BRAIN WO CONTRAST (04/16/2022 11:11 [...] vertebral arteries. Dictated by Allyn Hammond MD (radiology therapist) Dr. LAURIE Armas M.D. have personally reviewed [...] CTA brain: *Right carotid system: Short segment [id number] stenosis of the supraclinoid ICA. Small caliber but patent M1 segment. Patent M2 segments. Patent SHANE. Normal anterior communicating artery. *Left carotid system: Scattered calcification with mild stenosis of the supraclinoid ICA. Patent SHANE and MCA. Mild irregular caliber and stenosis of the superior M2 division. Normal anterior communicating artery. *Posterior circulation: Normal course and caliber of vertebral arteries and basilar artery. Patent cloth bolt bander. Irregular caliber of bilateral P1 and P2 [...] CTA brain: *Right carotid system: Short segment [id number] stenosis of the supraclinoid ICA. Small caliber but patent M1 segment. Patent [id number]. Patent SHANE. Normal anterior communicating artery. *Left carotid system: Scattered calcification with mild stenosis of the supraclinoid ICA. Patent SHANE and MCA. Mild irregular caliber andstenosis of the superior M2 division. Normal anterior communicating artery. *Posterior circulation: Normal course and caliber of vertebral arteries and basilar artery. Patent cloth bolt bander. Irregular caliber of bilateral P1 andP2 segments [...] vertebral arteries. Dictated by Allyn Hammond MD (radiology therapist) I, Dr. LAURIE FRIEDMAN M.D. have personally [...] 195 <200 mg/dL 04/16/2022 2:14 AM CDT [facility] HDL 39(L) >40 mg/dL 04/16/2022 2:14 AM CDT [facility] Comment: ATP III Classification of HDL Cholesterol: <40 mg/dL: Considered a major risk factor. >60 mg/dL: Considered a negative risk factor. LDL Calculated 130(H) <100 mg/dL 04/16/2022 2:14 AM CDT [facility] Comment: ATP III Classification of LDL Cholesterol: <100 mg/dL: Optimal 100 - 129 mg/dL: Near Optimal/Above Optimal 130 - 159 mg/dL: Borderline High 160 - 189 mg/dL: High >190 mg/dL: Very High Triglycerides 128 <150 mg/dL 04/16/2022 2:14 AM T [facility] Comment: ATP III Classification of Triglycerides: <150 mg/dL: Normal 150 - 199 mg/dL: Borderline High 200 - 400 mg/dL: High >500 mg/dL: Very High Blood BLOOD SPECIMEN / Unknown Venipuncture / Unknown 04/16/2022 1:42 AM CDT 04/16/2022 1:47 AM CDT Cameron Villalba MD LAB - CHEMISTRY ORD ERABLES Performing Organization Address [facility] Co de Phone Number [address] [address], [facility] [phone] * (ABNORMAL) PT-INR [facility] (04/16/2022 1:30 AM CDT) Only the most recent of3 resultswithin the time period is included. PT 15.0(H) 12.1 - 14.8 Seconds 04/16/2022 1:56 AM T [facility] INR 1.2 See Comment 04/16/2022 1:56 AM T [facility] Comment:The suggested therap eutic range for standard coumadin (warfarin) therapy is an INR of 2.0-3.0. For high-risk patients (Mechanical Mitral Valve Prosthesis, etc.), the suggested prophylactic therapeutic range is an INR of 2.5-3.5. Blood BLOOD SPECIMEN / Unknown Venipuncture / Unknown 04/16/2022 1:30 AM CDT 04/16/2022 1:30 AM CDT Cameron Villalba MD LAB - COAGULATION O RDERABLES Performing Organization Address [facility]/ZIP Co de Phone Number [address] [address], [facility] [phone] * EKG 12-LEAD (04/16/2022 12:03 AM CDT) Only the most recent of2 resultswithin the time period is included. Ventricular Rate 92 BPM [facility] MUSE Atrial Rate 92 BPM [facility] MUSE P-R Interval 138 ms [facility] QRS Duration ms 98 ms [facility] MUSE Q-T Interval ms 386 ms [facility] MUSE QTC Calculation (Bezet) 477 ms [facility] MUSE Calculated P [place] 50 degrees [facility] MUSE Calculated R [place] 10 degrees [facility] MUSE Calculated T [place] 19 degrees [facility] MUSE Interpretation EKG SINUS RHYTHM WITH PREMATURE SUPRAVENTRICULAR COMPLEXES LEFT VENTRICULAR HYPERTROPHY WITH REPOLARIZATION ABNORMALITY ( Sokolow-Garcia , Gianni product ) ABNORMAL ECG WHEN COMPARED WITH ECG OF 22-NOV-2018 08:31, SINUS RHYTHM HAS REPLACED ATRIAL FIBRILLATION NONSPECIFIC T WAVE ABNORMALITY, WORSE IN LATERAL LEADS Confirmed by Pastor Sutton ([id number]) on 04/17/2022 5:36:28 PM [facility] MUSE 04/16/2022 12:0 3 AM CDT 04/17/2022 5:36 PM CDT Cameron Villalba MD ECG ORDERABLES [facility] MUSE * (ABNORMAL) CREATININE - POCT INTERFACED (04/15/2022 11:43 PM CDT) [facility] Creatinine POCT 0.69 0.30 - 1.30 mg/dL 04/16/2022 12:01 AM CDT [facility] eGFR 88(L) >90 mL/min/1.7 3 m2 04/16/2022 12:01 AM CDT [facility] Blood BLOOD SPECIMEN / Unknown 04/15/2022 11:43 PM CDT 04/16/2022 12:01 AM CDT Cameron Villalba MD LAB - POINT OF CARE ORDERABLES [facility] [address] [place] [address], [facility] [phone] * TYPE + SCREEN PANEL (04/15/2022 11:43 PM CDT) Only the most recent of2 resultswithin the time period is included. [facility] Antibody Screen NEG 12:43 AM CDT [facility] LAB ABO Rh O POS 04/16/2022 12:43 AM CDT [facility] Blood Bank BLOOD SPECIMEN / Unknown Venipuncture / Unknown 04/15/2022 11:43 PM CDT 04/15/2022 11:53 PM CDT Cameron Villalba MD LAB - BLOOD BANK OR DERABLES [facility] LAB [address] [place] [address], [facility] [phone] * (ABNORMAL) CBC W AUTO DIFFERENTIAL (04/15/2022 11:43 PM CDT) Only the most recent of2 resultswithin the time period is included. [facility] WBC 8.4 3.5 - 10.5 10 3/uL 04/16/2022 12:03 AM [facility] RBC 4.04 3.80 - 5.20 10 6/uL 04/16/2022 12:03 AM [facility] Hemoglobin 11.3(L) 12.0 - 15.6 g/dL 04/16/2022 12:03 AM [facility] Hematocrit 35.2 35.0 - 45.0 % 04/16/2022 12:03 AM [facility] MCV 87.1 80.7 - 98.3 fL 04/16/2022 12:03 AM [facility] MCH 28.0 26.7 - 34.0 pg 04/16/2022 12:03 AM [facility] MCHC 32.1 30.8 - 35.9 g/dL 04/16/2022 12:03 AM [facility] Platelet Count 224 150 - 400 10 3/uL 04/16/2022 12:03 AM [facility] RDW-SD 42.0 36.0 - 50.0 fL 04/16/2022 12:03 AM [facility] RDW-CV 13.2 11.2 - 14.8 % 04/16/2022 12:03 AM [facility] MPV 10.6 9.4 - 12.9 fL 04/16/2022 12:03 AM [facility] nRBC Absolute 0.00 0 10 3/uL 04/16/2022 12:03 AM [facility] nRBC Auto 0.0 0 /100 WBC 04/16/2022 12:03 AM [facility] Neutrophils % 49.4 35.0 - 70.0 % 04/16/2022 12:03 AM [facility] Lymphocytes % 33.8 20.0 - 43.0 % 04/16/2022 12:03 AM [facility] Monocytes % 6.8 5.0 - 13.0 % 04/16/2022 12:03 AM [facility] Eosinophils % 9.1(H) 0.0 - 6.0 % 04/16/2022 12:03 AM [facility] Basophil % 0.8 0.0 - 2.0 % 04/16/2022 12:03 AM [facility] Neutrophils Absolute 4.14 1.60 - 7.00 10 3/uL 04/16/2022 12:03 AM [facility] Lymphocyte Absolute 2.83 1.10 - 3.90 10 3/uL 04/16/2022 12:03 AM [facility] Monocytes Absolute 0.57 0.26 - 1.07 10 3/uL 04/16/2022 12:03 AM [facility] Eosinophils Absolute 0.76(H) 0.00 - 0.47 10 3/uL 04/16/2022 12:03 AM [facility] Basophils Absolute 0.07 0.00 - 0.08 10 3/uL 04/16/2022 12:03 AM [facility] Immature Granulocytes % 0.1 0.0 - 1.0 % 04/16/2022 12:03 AM [facility] Immature Granulocytes Absolute 0.01 04/16/2022 12:03 AM [facility] Blood BLOOD SPECIMEN / Unknown Venipuncture / Unknown 04/15/2022 11:43 PM CDT 04/15/2022 11:49 PM CDT Cameron Villalba MD LAB - HEMATOLOGY OR DERABLES [facility] [address] [place] [address], [facility] [phone] * (ABNORMAL) COMPREHENSIVE METABOLIC PANEL (04/15/2022 11:43 PM CDT) Only the most recent of2 resultswithin the time period is included. BUN 9 7 - 26 mg/dL 04/16/2022 12:17 AM [facility] Creatinine 0.77 0.56 - 0.96 mg/dL 04/16/2022 12:17 AM [facility] Sodium 141 136 - 145 mmol/L 04/16/2022 12:17 AM [facility] Potassium 2.9(L) 3.5 - 4.5 mmol/L 04/16/2022 12:17 AM [facility] Chloride 105 98 - 107 mmol/L 04/16/2022 12:17 AM [facility] CO2 23 22 - 29 mmol/L 04/16/2022 12:17 AM [facility] Glucose 100 70 - 115 mg/dL 04/16/2022 12:17 AM [facility] Calcium 8.6 8.4 - 10.2 mg/dL 04/16/2022 12:17 AM [facility] Protein Total 8.2 6.0 - 8.3 g/dL 04/16/2022 12:17 AM [facility] Albumin 3.1(L) 3.4 - 5.0 g/dL 04/16/2022 12:17 AM [facility] Bilirubin Total 0.5 0.2 - 1.2 mg/dL 04/16/2022 12:17 AM [facility] Alkaline Phosphatase 158(H) 40 - 150 U/L 04/16/2022 12:17 AM [facility] ALT 16 5 - 55 U/L 04/16/2022 12:17 AM [facility] AST 18 5 - 34 U/L 04/16/2022 12:17 AM [facility] Anion Gap 16 8 - 18 04/16/2022 12:17 AM [facility] BUN/Creatinine Ratio 12 7 - 23 04/16/2022 12:17 AM [facility] Osmolality Calculated 291 270 - 300 mOsm/kg 04/16/2022 12:17 AM [facility] Albumin/Globulin Ratio 0.6(L) 1.1 - 2.3 04/16/2022 12:17 AM [facility] eGFR by CKD-EPI 78(L) >=90 mL/min/1.7 3 m2 04/16/2022 12:17 AM [facility] Blood BLOOD SPECIMEN / Unknown Venipuncture / Unknown 04/15/2022 11:43 PM CDT 04/15/2022 11:49 PM T Cameron Villalba MD LAB - CHEMISTRY ORD UZMA [facility] [address] [place] [address], [place] [phone] * (ABNORMAL) CK BLOOD (11/24/2018 10:42 AM ARMY MANAGER) Only the most recent of3 resultswithin the time period is included. [facility] CK Total 9,139(H) 30 - 200 Units/L 11/24/2018 11:25 AM ARMY MANAGER [facility] Comment: Result obtained by dilution. Blood BLOOD SPECIMEN / Unknown Lab Venipuncture / Unknown 11/24/2018 10:42 AM ARMY MANAGER 11/24/2018 10:54 AM ARMY MANAGER Tone Raman MD LAB - CHEMISTRY [place] [facility] [address] [place] [address], [facility] [phone] * PROTEIN URINE RANDOM QUANTITATIVE (11/23/2018 3:03 PM ARMY MANAGER) [facility] Protein Urine 39 Not Established mg/dL 11/23/2018 3:38 PM ARMY MANAGER [facility] Urine URINE SPECIMEN OBTAINED BY CLEAN CATCH PROCEDURE / Unknown Collection / Unknown 11/23/2018 3:03 PM ARMY MANAGER 11/23/2018 3:03 PM ARMY MANAGER Calvin Bush MD LAB - URINE CHEMISTR Y ORDERABLES Performing Organization Address [facility] Co de Phone Number [address] [phone] * SODIUM URINE RANDOM (11/23/2018 3:03 PM ARMY MANAGER) Sodium Urine 43 Not Established mmol/L 11/23/2018 3:36 PM [facility] Urine URINE SPECIMEN OBTAINED BY CLEAN CATCH PROCEDURE / Unknown Collection / Unknown 11/23/2018 3:03 PM ARMY MANAGER 11/23/2018 3:03 PM ARMY MANAGER Calvin Bush MD LAB - URINE CHEMISTR Y ORDERABLES Performing Organization Address [facility] Co de Phone Number [address] [phone] * UREA NITROGEN URINE RANDOM (11/23/2018 3:03 PM ARMY MANAGER) Urea Nitrogen Random Urine 1,364 Not Established mg/dL 11/23/2018 3:36 PM ARMY MANAGER [facility] Urine URINE SPECIMEN OBTAINED BY CLEAN CATCH PROCEDURE / Unknown Collection / Unknown 11/23/2018 3:03 PM ARMY MANAGER 11/23/2018 3:03 PM ARMY MANAGER Calvin Bush MD LAB - URINE CHEMISTR Y ORDERABLES Performing Organization Address [facility] Co de Phone Number [address] [phone] * CREATININE URINE RANDOM (11/23/2018 3:03 PM ARMY MANAGER) Creatinine Urine 110 Not Established mg/dL 11/23/2018 3:38 PM ARMY MANAGER [facility] Comment: Result obtained by dilution. Urine URINE SPECIMEN OBTAINED BY CLEAN CATCH PROCEDURE / Unknown Collection / Unknown 11/23/2018 3:03 PM ARMY MANAGER 11/23/2018 3:03 PM ARMY MANAGER Calvin Bush MD LAB - URINE [place] [address], [facility] [phone] * US RETROPERITONEAL COMPLETE (11/23/2018 1:17 PM ARMY MANAGER) Anatomical Region Laterality Modality Abdomen Ultrasound 11/23/2018 1:32 PM ARMY MANAGER Impressions 11/23/2018 3:51 PM ARMY MANAGER IMPRESSION: Normal renal size. Nonobstructing right nephrolithiasis. No evidence of hydronephrosis or solid renal mass. Cholelithiasis. Dictated by Germaine Roldan MD (residential door unit installer). This report was approved by Germaine Roldan on 11/23/2018 2:46 PM . I, Dr. BRITTNEE KNOTT M.D. have personally reviewed and interpreted this examination/study. This report was electronically signed by BRITTNEE KNOTT M.D. on 11/23/2018 3:51 PM . Narrative 11/23/2018 3:51 PM ARMY MANAGER EXAMINATION: Complete retroperitoneal sonogram HISTORY: Acute kidney [...] mass. Cholelithiasis. Dictated by Germaine Roldan MD (residential door unit installer). This report was approved by Germaine Roldan on 11/23/2018 2:46 PM . I, Dr. BRITTNEE KNOTT M.D. have personally reviewed and interpretedthis examination/study. This report was electronically signed by BRITTNEE KNOTT M.D. on 11/23/2018 3:51 PM . Calvin Bush MD ORDERABLES * CULTURE URINE (11/22/2018 10:39 AM ARMY MANAGER) Culture Urine No growth (<100 CFU/mL) THALIA 11/23/2018 3:24 PM ARMY MANAGER [facility] Urine URINE SPECIMEN OBTAINED BY SINGLE CATHETERIZATION OF URINARY BLADDER / Unknown Collection / Unknown 11/22/2018 10:39 AM ARMY MANAGER 11/22/2018 10:48 AM ARMY MANAGER Denise Christopher MD LAB - MICROBIOLOGY O RDERABLES [facility] [address] [place], [place] [address], [facility] [phone] * (ABNORMAL) URINALYSIS W/MICROSCOPIC NO CULTURE (11/22/2018 10:19 AM ARMY MANAGER) Color UA Yellow Straw, Yellow, Colorless 11/22/2018 10:30 AM [facility] Clarity UA Cloudy(A) Clear, Slt Cloudy 11/22/2018 10:30 AM [facility] Specific Lithia UA 1.023 1.005 - 1.030 11/22/2018 10:30 AM [facility] pH UA 5.0 5.0 - 8.0 pH 11/22/2018 10:30 AM [facility] Protein UA 1+(A) Negative mg/dL 11/22/2018 10:30 AM [facility] Glucose UA 1+(A) Negative mg/dL 11/22/2018 10:30 AM [facility] Ketone UA Negative Negative mg/dL 11/22/2018 10:30 AM [facility] Bilirubin UA Negative Negative mg/dL 11/22/2018 10:30 AM [facility] Blood UA 3+(A) Negative 11/22/2018 10:30 AM [facility] Nitrite UA Negative Negative 11/22/2018 10:30 AM [facility] Leukocyte Esterase Negative Negative 11/22/2018 10:30 AM [facility] Urobilinogen UA Negative Negative mg/dL 11/22/2018 10:30 AM [facility] RBC UA 3-5 None Seen, 0-2, 3-5 /HPF 11/22/2018 10:30 AM [facility] WBC UA 6-10(A) None Seen, 0-5 /HPF 11/22/2018 10:30 AM [facility] Bacteria UA 1+(A) None, Trace /HPF 11/22/2018 10:30 AM [facility] Squamous Epithelial Cells UA 3-5(A) None Seen, 0-2 /HPF 11/22/2018 10:30 AM [facility] Mucus UA 2+(A) None, 1+ /LPF 11/22/2018 10:30 AM [facility] Hyaline Casts UA 6-10(A) None Seen, 0-2 /LPF 11/22/2018 10:30 AM [facility] Urine URINE SPECIMEN OBTAINED BY SINGLE CATHETERIZATION OF URINARY BLADDER / Unknown 11/22/2018 10:19 AM ARMY MANAGER 11/22/2018 10:19 AM [facility] Denise Christopher MD LAB - URINALYSIS ORD ERABLES [facility] [address] [place] [address] * XR CHEST 2VW (11/22/2018 9:41 AM ARMY MANAGER) Anatomical Region Laterality Modality Chest Radiographic Mia ging 11/22/2018 9:59 AM ARMY MANAGER Impressions 11/22/2018 1:30 PM ARMY MANAGER IMPRESSION: 1.No acute pulmonary process is seen. 2.No radiographic evidence of foreign bodies or artificial devices in the thorax. This report was approved by João Oglesby on 11/22/2018 11:[address] BRITTNEE Armas MD have personally reviewed and interpreted this examination/study. This report was electronically signed by Dr. BRITTNEE LEONARDO MD on 11/22/2018 1:30 PM . Narrative 11/22/2018 1:30 PM ARMY MANAGER EXAMINATION: XR CHEST 2VW HISTORY: nonverbal, evaluate [...] ANGIO BRAIN NECK STROKE (11/22/2018 8:22 AM ARMY MANAGER) Anatomical Region Laterality Modality Head Computed Tomogra phy 11/22/2018 8:33 AM ARMY MANAGER Impressions 11/22/2018 1:15 PM ARMY MANAGER IMPRESSION: 1.No acute intracranial hemorrhage. 2.Hypoattenuating regions [...] 1:15 PM . Narrative 11/22/2018 1:15 PM ARMY MANAGER EXAMINATION: 1. Computed tomographic (CT) angiography of [...] CT CEREBRAL PERFUSION ANALYSIS (11/22/2018 8:22 AM ARMY MANAGER) Anatomical Region Laterality Modality Head Computed Tomogra phy 11/22/2018 8:33 AM ARMY MANAGER Impressions 11/22/2018 1:15 PM ARMY MANAGER IMPRESSION: 1.No acute intracranial hemorrhage. 2.Hypoattenuating regions [...] 1:15 PM . Narrative 11/22/2018 1:15 PM ARMY MANAGER EXAMINATION: 1. Computed tomographic (CT) angiography of [...] * (ABNORMAL) CREATININE BLOOD - POCT (IP) [facility] (11/22/2018 8:15 AM ARMY MANAGER) Creatinine POCT 1.77(A) 0.3 - 1.3 mg/dL [facility] POCT TESTING eGFR POCT 36(A) 60 ml/min [facility] POCT TESTING Blood BLOOD SPECIMEN / Unknown 11/22/2018 8:15 AM ARMY MANAGER Shiraz Correa MD LAB - POINT OF CARE ORDERABLES [facility] POCT TESTING [address] [phone] * CT BRAIN STROKE PROTOCOL (11/22/2018 8:09 AM ARMY MANAGER) Anatomical Region Laterality Modality Head Computed Tomogra phy 11/22/2018 8:13 AM ARMY MANAGER Impressions 11/22/2018 8:26 AM ARMY MANAGER IMPRESSION: 1.No acute intracranial hemorrhage, midline shift, [...] 8:26 AM . Narrative 11/22/2018 8:26 AM ARMY MANAGER EXAMINATION: Computed tomography (CT) of the head [...] Denise Christopher MD CT ORDERABLES Care Teams Wood Heel Flap Inserter Relationship Specialty Start Date End Date Clyde Monge MD [address] [place] [address] PCP - General Family Medicine 04/16/22
--- OUTSIDE RECORDS SUMMARY | 2024-11-01 15:23 | XMS_ITS | Continuity of Care Document ---
Author Organization [facility] Address [address] [place] [address] [place] [address] Phone Care Team Providers Care Grouter Helper Name Role Phone Clyde Monge MD Unavailable Unavailable Allergies, Adverse Reactions, Alerts Substance Reaction Status Criticality No Known Allergies Active No Inform ation Medications Medication Instructions Dosage Effective Dates (start - stop) Status Comments hydralazine 25 mg tablet take 1 tablet by oral route 4 times every day with food 25 MG - Active Coreg 6.25 mg tablet take 1 Tablet by or al route 2 times every day with food 6.25 MG - Active Procedures Procedure Date OFFICE/OUTPATIENT [...] Copied on Encounter OFFICE/OUTPA TIENT VISIT, EST [facility], [address] [place], [address], [place] tel:[phone] [facility] weakness1 (chief complaint) Adult failure to thriveAbnormality of gaitEssential (primary) hypertensionAnemiaA bnormality of albuminDisorder of thyroid, unspecifiedMixed hyperlipidemia 3 Saleem Tang. [address], [address] , [place]. tel:[phone] PREV VISIT, EST, 65 & OVER [facility], [address] [place], [address], [place] tel:[phone] [facility] physical (chief complaint) Encounter for general adult medical exam w abnormal findingsEssential (primary) hypertensionAtrial fibrillationStrokeT hyroid noduleType 2 diabetes mellitus without complicationsAbnorm ality of gaitAnemia 3 Saleem Tang. [address], [address] , [place]. tel:[phone] OFFICE/OUTPA TIENT VISIT, [facility], [address] [place], [place], [address], [place] tel:[phone] [facility] HTN (chief complaint) CVA (chief complaint) weight loss1 (chief complaint) DM (chief complaint) Essential (primary) hypertensionType 2 diabetes mellitus without complicationsAtrial fibrillationThyroid noduleStroke 3 Saleem Tang. [address], [place], [place], [address] , [place]. tel:[phone] OFFICE/OUTPA TIENT VISIT, EST [facility], [address] [place], [address], [place] tel:[phone] [facility] HTN (chief complaint) DM (chief complaint) weight loss1 (chief complaint) Essential (primary) hypertensionType 2 diabetes mellitus without complicationsAbnorm al weight loss 2 Monge Clyde. [address], [place], [place], [address] , [place]. tel:[phone] OFFICE/OUTPA TIENT VISIT, EST [facility], [address] [place], [address], [place] tel:[phone] [facility] brain bleeding1 (chief complaint) AnemiaAtrial fibrillationNontrau matic intracerebral hemorrhage, unspecifiedEssentia l (primary) hypertensionType 2 diabetes mellitus without complications May- 2 Monge Clyde. [address], [place], [place], [address] , [place]. tel:[phone] OFFICE/OUTPA TIENT VISIT, [facility], [address] [place], [address], [place] tel:[phone] [facility] HTN (chief complaint) DM (chief complaint) Hypertensive emergencyAtrial fibrillationType 2 diabetes mellitus without complications Mar- 2 Monge Clyde. [address], [place], [place], [address] , [place]. tel:[phone] OFFICE/OUTPA TIENT VISIT, [facility], [address] [place], [address], [place] tel:[phone] [facility] Medicine physical (chief complaint) Encounter for general adult medical exam w abnormal findingsEssential (primary) hypertensionAtrial fibrillationNontrau matic intracerebral bleedingThyroid noduleType 2 diabetes mellitus without complicationsAbnorm al weight loss 2 Saleem Clyde. [address], [place], [place], [address] , [place]. tel:[phone] OFFICE/OUTPA TIENT VISIT, [facility], [address] [place], [address], tel:[phone] [facility] CVA (chief complaint) CVA1 (chief complaint) Atrial fibrillationEssenti al (primary) hypertensionType 2 diabetes mellitus without complicationsNontra umatic intracerebral bleeding 1 Saleem Price [address], [address] , [place]. tel:[phone] OFFICE/OUTPA TIENT VISIT, [facility], [address] [place], [address], tel:[phone] [facility] physical (chief complaint) Encounter for general adult medical exam w abnormal findingsEssential (primary) hypertensionAtrial fibrillationType 2 diabetes mellitus without complications 0 1 Saleem Price [address], [address] , [place]. tel:[phone] OFFICE/OUTPA TIENT VISIT, [facility], [address] [place], [address], tel:[phone] [facility] DM (chief complaint) HTN (chief complaint) afib (chief complaint) Atrial fibrillationEssenti al (primary) hypertensionType 2 diabetes mellitus without complicationsThyroi d noduleAbnormality of globulin 0 Saleem Price [address], [address] , [place]. tel:[phone] OFFICE/OUTPA TIENT VISIT, [facility], [address] [place], [address], tel:[phone] [facility] DM (chief complaint) globulin1 (chief complaint) renal (chief complaint) HTN (chief complaint) thyroid nodule1 (chief complaint) Essential (primary) hypertensionAtrial fibrillationLiver diseaseType 2 diabetes mellitus without complicationsThyroi d noduleAbnormality of globulinVitamin D deficiency, unspecifiedRenal disease 0 Saleem Tang. [address], [place], [place], [address] , [place]. tel:[phone] Referring Provider: Ketty Hanna [address], [place], [place], [address]. tel:[phone] OFFICE/OUTPA TIENT VISIT, [facility], [address], [place], [place], [address], [place] tel:[phone] [facility] physical (chief complaint) Encounter for general adult medical exam w abnormal findingsStrokeAtria l fibrillationLiver diseaseType 2 diabetes mellitus without complicationsEssent ial (primary) hypertension 9 Saleem Tang. [address], [place], [place], [address] , [place]. tel:[phone] Referring Provider: Ketty Hanna [address], [place], [address]. tel:[phone] OFFICE/OUTPA TIENT VISIT, [facility], [address], [place], [place], [address], [place] tel:[phone] [facility] CVA1 (chief complaint) StrokeAtrial fibrillationRhabdom yolysisType 2 diabetes mellitus without complicationsThyroi d nodule 9 Saleem Tang. [address], [place], [address] , [place]. tel:[phone] Referring Provider: Ketty Hanna [address], [place], [place], [address]. tel:[phone] OFFICE/OUTPA TIENT VISIT, [facility], [address], [place], [place], [address], [place] tel:[phone] [facility] HTN (chief complaint) edema1 (chief complaint) skin1 (chief complaint) thyroid (chief complaint) low D (chief complaint) Type 2 diabetes mellitus without complicationsAbnorm ality of globulinRenal diseaseDisorder of thyroid, unspecifiedVitamin D deficiency, unspecifiedSkin changes 8 Saleem Tang. [address], [place], [place], [address] , [place]. [phone] Referring Provider: Ketty Hanna [address], [place], [place], [address]. tel:[phone] OFFICE/OUTPA TIENT VISIT, [facility], [address], [place], [place], [address], [place] tel:[phone] [facility] Medicine Physical (chief complaint) Encounter for general adult medical exam w abnormal findingsEssential (primary) hypertensionType 2 diabetes mellitus without complicationsStroke Cellulitis of right lower limb 8 Saleem Tang. [address], [place], [place], [address] , [place]. [phone] Referring Provider: Ketty Hanna [address], [place], [place], [address]. tel:[phone] OFFICE/OUTPA TIENT VISIT, [facility], [address], [place], [place], [address], [place] tel:[phone] [facility] HTN (chief complaint) DM (chief complaint) edema1 (chief complaint) EdemaEssential (primary) hypertensionType [address] complications[address] ct with neovascularization, bilateral 7 Saleem Tang. [address], [place], [place], [address] , [place]. [phone] Referring Provider: Ketty Hanna [address], [place], [address]. tel:[phone] OFFICE/OUTPA TIENT VISIT, [facility], [address], [place], [address], [place] tel:[phone] [facility] DM (chief complaint) cataract1 (chief complaint) HTN (chief complaint) edema1 (chief complaint) Type 2 diabetes mellitus without complicationsEdemaE ssential (primary) hypertensionCatarac t in diseases classified elsewhere 7 Saleem Tang. [address], [place], [address] , [place]. [phone] Referring Provider: Ketty Hanna [address], [place], [place], [address]. tel:[phone] OFFICE/OUTPA TIENT VISIT, [facility], [address] [place], [address], [place] tel:[phone] [facility] DM (chief complaint) Other visual disturbancesType 2 diabetes mellitus without complicationsTransi ent cerebral ischemic attack 7 Saleem Tang. [address], [place], [place], [address] , [place]. [phone] Referring Provider: Ketty Hanna [address], [place], [address]. tel:[phone] OFFICE/OUTPA TIENT VISIT, [facility], [address], [place], [address], [place] [phone] [facility] DM (chief complaint) CVA (chief complaint) CVA1 (chief complaint) HTN (chief complaint) edema1 (chief complaint) Type 2 diabetes mellitus without complicationsTransi ent cerebral ischemic attackEssential (primary) hypertensionEdema 7 Saleem Tang. [address], [place], [place], [address] , [place]. [phone] Referring Provider: Ketty Hanna [address], [place], [place], [address]. tel:[phone] OFFICE/OUTPA TIENT VISIT, [facility], [address], [address], [place] tel:[phone] [facility] HTN (chief complaint) edema (chief complaint) eczema1 (chief complaint) weight loss1 (chief complaint) Essential (primary) hypertensionEdemaEc zemaAbnormal weight loss 6 Saleem Tang. [address], [place], [place], [address] , [place]. [phone] Referring Provider: Ketty Hanna [address], [place], [address]. tel:[phone] OFFICE/OUTPA TIENT VISIT, [facility], [address], [place], [place], [address], [place] tel:[phone] [facility] edema (chief complaint) HTN (chief complaint) dry leg (chief complaint) Dietary surveillance and counselingEdemaUnsp ecified essential hypertensionAcute, but ill-defined, cerebrovascular disease 0-201 5 Saleem Tang. [address], [place], [place], [address] , [place]. tel:[phone] Referring Provider: Ketty Hanna [address], [place], [place], [address]. tel:[phone] OFFICE/OUTPA TIENT VISIT, [facility], [address], [place], [place], [address], [place] tel:[phone] [facility] HTN (chief complaint) Edema (chief complaint) TG (chief complaint) Dietary surveillance and counselingEdemaHype rtension, UnspecifiedOther and unspecified hyperlipidemia Damián-2 0201 4 Saleem Tang. [address], [place], [place], [address] , [place]. tel:[phone] Referring Provider: Ketty Hanna [address], [place], [place], [address]. tel:[phone] OFFICE/OUTPA TIENT VISIT, [facility], [address], [place], [place], [address], [place] tel:[phone] [facility] HTN (chief complaint) Dietary surveillance and counselingHypertens ion, UnspecifiedAcute, but ill-defined, cerebrovascular diseaseEdema 0 6201 3 Saleem Tang. [address], [place], [place], [address] , [place]. tel:[phone] Referring Provider: Ketty Hanna [address], [place], [place], [address]. tel:[phone] OFFICE/OUTPA TIENT VISIT, [facility], [address], [place], [place], [address], [place] tel:[phone] [facility] CVA (chief complaint) HTN (chief complaint) Edema (chief complaint) Dietary surveillance and counselingHypertens ion, UnspecifiedAcute, but ill-defined, cerebrovascular diseaseEdema 0 2 Saleem Tang. Ketty [facility] [place], [address] , . [phone] Referring Provider: Clyde Ketty Monge [facility] [address], [place], [place], [address]. tel:[phone] Family History Family Member Type Diagnosis Age At Onset Father Problem (finding) Unknown Disease Father Problem (finding) Other Mother Problem (finding) Alive and well Payers Payer name Insurance type Covered alliance party ID Authoriza tion(s) No Information Social [...] Chou [address] [place], [place] [id number] Ordered: Referrals: Allopathic & Osteopathic Physicians : Dermatology. Keke Chou. Evaluate and treat ordered Referral Ordered: Physical Therapy (related to Transient cerebral ischemic attack) ordered Referral Referred To: Physical Therapy Ordered: Referrals: Physical Therapy. Evaluate and treat ordered History Of Present Illness Encounter Date Complaint History Of Prese nt Illness weakness1 Pt presents to [facility] along with her . Per her , [...] that she feels some fatigue at times HTN Pt has HTN with paroxymal afib. Pt takes coreg and hydralazine and her bp is stable. Pt denies any chest pain or palpitation Pt denies any sob or headache. CVA The risk factors include age > 50. 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 Pt is at baseline in terms of her mental state per . weight loss1 Pt has been losi ng weight Pt states that her appetite is good at home which is confirmed by her . Pt denies any nausea, vomiting, appetite loss, change of bowel, blood in stool, early satiety, abdominal pain, etc. DM Pt has history o f DM but she is off metformin due to poor compliance with lab and medication and glucose check Pt denies any polyuria, polydipsia. HTN Pt has HTN with paroxymal afib. [...] eats ok. Pt denies any GI issue brain bleeding1 Pt recently suff ered acute [...] with walker. Pt denies any recent fall HTN Pt has HTN Pt th inks [...] of weakness. Pt denies any worsening aphasia. DM Pt has DM. Pt ta kes metformin. Pt is extremely noncompliant with lab work. Pt also does not check her glucose at home. Pt denies any polyuria, polydipsia physical Pt needs annual physical. Pt overall [...] Pt states that she feels well currently DM Pt has borderlin e DM. Pt takes metformins only ,pt does not check her glucose Pt denies any polyuria, polydipsia. HTN Pt has HTN. Pt t akes irbesartan. Pt does not check her BP at home. afib Pt has paroxymal afib with history of CVA Pt takes eliquis. Pt denies any chest pain or palpitation Pt denies any new neurological deficit. DM Pt takes metform in only and she does not want to check her glucose at home pt denies any diarrhea Her A1c and glucose are actually ok globulin1 Pt has slightly high globulin renal Pt has borderlin e low renal. Pt has normal UO HTN Pt has HTn Pt is out of norvasc. Her BP is high Pt denies any chest pain or headache thyroid nodule1 Pt has thyroid n odule on MRI of brain from [facility] 2018/ Pt is noncompliant with thyroid ultrasound pt denies any dysphagia, neck pain physical Pt needs annual physical. Pt is [...] any foot pain or any other complaints HTN Pt has HTn. Pt t akes toprol and lisinopril and her BP is stable. Pt has LE edema. Pt takes lasix and Kcl and doing ok DM Pt takes metform in and also lantus. her BG is around 120s. Pt denies any hypoglycedmia pt denies any polyuria, polydipsia edema1 Pt doing ok with lasix and kcl. Pt deniesany sob Pt denies any edema DM Pt has DM. Pt ta kes [...] portion of food to maintain her weight. edema Pt has LE edema. Pt takes lasix and KCL and doing ok. pt denies any swelling. Pt denies any SOB or chest pain HTN Pt takes toprol and lisinopril for HTN. PT denies any chest pain. or headache. Pt is out of toprol for one week. dry leg Pt has dry leg a nd she uses betamethasone PRN and doing ok Instructions Date Instruction Additional Infor varinder Increase [...] general adult medical exam w/o abnormal findings Prescribed Activity and Exercise Education Related to Dietary Surveillance and Counseling Prescribed Diet Educ ation/Lifestyle Education Regarding Diet Related to Dietary Surveillance and Counseling Increase physical activity Relat ed to Edema Weight management Related to Casey ma Prescribed Activity and Exercise Education Related to [...] caloric intake Related to Dietary surveillance counseling Assessments Type Assessment Date assessment Adult failure to thrive 023 assessment Abnormality of gait assessment Essential (primary) hypertension assessment Anemia assessment Abnormality of albumin 23 assessment Disorder of thyroid, unspecified assessment Mixed hyperlipidemia Mental Status Date Cognitive Assessment Orientation - [place] ed to time, place, person, situation.
[2024-11-01 16:52] LABS: Reflex Lactic Acid Yes or No Add Lactic
[2024-11-01 16:53] LABS: Troponin I < 0.012 ng/mL (0.000-0.034)
[2024-11-01] MEDS: LACTATED RINGERS 1,000 ML 999 ML IV CONT (16:53)
[2024-11-01 17:12] LABS: Lactic Acid 1.3 mmol/L (0.7-2.0)
[2024-11-01 17:13] LABS: Thyroid Stimulating Hormone Reflex 0.715 uIU/mL (0.465-4.68)
--- NOTE | 2024-11-01 19:08 | ED_ITS ---
HPI - Altered Mental Status General Chief Complaint: Altered Mental Status Stated Complaint: ams Time Seen by Provider: 11/01/24 14:53 History of Present Illness HPI narrative: 84-year-old female with a past medical history including intracranial hemorrhage, hypertension, diabetes. She is alert oriented x1 which is her usual baseline. She presents via EMS for concerns of transient altered mental status. Patient was difficult to arouse while she was in bed today, nursing staff was concerned enough that they brought her to the floor and tried to perform CPR even though there was no signs of cardiac arrest. Patient had a chest compressions initiated but immediately woke up and was at her baseline mentation. No CPR was actually performed, sent to the hospital for evaluation. Patient is presently in her baseline mentation awake alert x1, has no acute complaints, resting comfortably in her bed. She is found to be slightly hypothermic however previous levels on her previous hospital visits of also been low in that range. patient denies any chest pain, shortness a breath, nausea, vomiting, headache, vision changes, urinary issues. She states that she feels very good and she expressed desire to be discharged back home. Related Data Allergies Allergy/AdvReac Type Severity Reaction Status Date / Time No Known Drug Allergies Allergy Unknown Other Verified 07/07/23 23:49 Review of Systems 2 Review of Systems: as reviewed above in HPI [facility] Past Medical History Medical History Combined hyperlipidemia Intraparenchymal hemorrhage of brain Diabetes Hypertension CVA (cerebral vascular accident) CVA, old, hemiparesis Hypertension Diabetes mellitus Surgical History Surgical History No pertinent past surgical history Family History Family History Other Unknown family medical history Social History Social History Smoking status: Never smoker Alcohol intake: never Substance use: never Lack of Transportation: No Lack of Food: Never True Current Housing: I Have Housing Concerned About Future Housing: No Difficulty Paying Gas/Electric Bills: No Difficulty Paying for Meds: No Currently Unemployed: No Education: Decline to Answer Difficulty w/ Childcare or Family Care: Decline to Answer Spiritual care concerns: No Exam 2 Narrative: GENERAL: [Well-appearing, well-nourished, and in no acute distress.] HEAD: [Normocephalic, atraumatic.] EYES: [PERRLA and EOMI.] ENT: Nares clear, no rhinorrhea or epistaxis. Mucous membranes moist. NECK: Supple. CHEST: [Clear to auscultation. No respiratory distress.] HEART: [Regular rate and rhythm]. No murmur heard. [Normal peripheral pulses.] ABDOMEN: [Soft, nondistended], [nontender], [No rigidity or guarding] EXTREMITIES: Normal range of motion. [No edema.] SKIN: Warm, dry, no rash. NEURO: chronic residual focal deficits from previous stroke including left- sided hemiparesis, no new or focal deficits appreciated. Patient is at her baseline mentation alert oriented x1. PSYCH: [Normal mood and affect.] Course Vital Signs Vital signs: Vital Signs Temperature 36.3 C L 11/01/24 12:05 Pulse Rate 64 11/01/24 12:05 Respiratory Rate 14 11/01/24 12:05 Pulse Oximetry 100 11/01/24 12:05 Temperature 36.8 C 11/01/24 15:01 Pulse Rate 72 11/01/24 23:26 Respiratory Rate 19 11/01/24 23:26 Blood Pressure 151/86 H 11/01/24 23:26 Pulse Oximetry 100 11/01/24 23:26 Oxygen Delivery Room Air 11/01/24 12:44 MDM - Altered Mental Status MDM Narrative Medical decision making narrative: 84-year-old female with a history of intracranial hemorrhage in stroke, residual left-sided miquel deficits, hypertension and diabetes. Today she presents to the emergency department for an unresponsive episode at her facility. Nursing staff was concerned that patient was unresponsive in bed and tried to perform chest compressions where she immediately woke up and was awake at her baseline mentation. Patient has no evidence of any injury, no signs of head trauma. She denies any symptoms at this time. patient states that she feels very good. is alert to her name which is her baseline, has no complaints at this time. Denies any review of systems questioning and very cooperative and calm. She has some slight hypothermia that resolved with minimal intervention and otherwise vitals are reassuring without any tachycardia, hypoxia, fever or significant blood pressure elevations or hypotension. although patient appears to have no acute complaints at this time she does have some complicated medical history and a workup was ordered. CBC, CMP, PT, PTT, urinalysis with straight catheterization, troponin, TSH, lactic acid, CT of the brain and EKG and glucose were obtained. She was provider L of fluid bolus. Workup shows no leukocytosis or anemia. Normal platelet level. Negative troponin. Urinalysis without signs of infection. Normal PT and PTT. creatinine within normal range, normal electrolytes, normal glucose, lactic acid mildly elevated 2.1 but redraw at 1.3 without any intervention and she has not received the fluids yet. Normal TSH. Normal albumin. Normal LFTs. Urinalysis without any signs of infection. CT of the head shows no acute intracranial process and chronic old infarcts. EKG shows sinus rhythm, no ST segment elevations, depressions or inversions. Patient was re-evaluated frequently and had no concerns, maintained her normal mentation without any changes. Vital signs have been reassuring. At this time given her unremarkable workup and no acute complaints or findings I believe she can be safely discharged back to her skilled care facility. Will arrange ambulance transportation. Medical Records Attestation: I reviewed the patient's medical records. Lab Data Attestation: I reviewed the patient's lab results. 11/01/24 13:28 11/01/24 13:28 Labs: Lab Results 11/01/24 11/01/24 11/01/24 Range/Units 12:09 13:28 13:30 WBC 9.0 (4.5-10.0) K/mm3 RBC 3.99 L (4.2-5.4) M/mm3 Hgb 12.2 (12.0-15.0) g/dL Hct 37.7 (37.0-47.0) % MCV 94.5 (80-100) fl MCH 30.6 (26-34) pg MCHC 32.4 (32-36) g/dl RDW 12.4 (11.5-14.5) % Plt Count 257 (150-375) k/mm3 MPV 10.1 (7.4-10.4) fl Immature Gran % (Auto) 0.4 (0-0.5) % Neut % (Auto) 69.0 (45.5-73.1) % Lymph % (Auto) 18.8 (18.3-44.2) % Bennett % (Auto) 7.1 (2.6-8.5) % Eos % (Auto) 4.1 (0-4.4) % Baso % (Auto) 0.6 (0.2-1.2) % Lymph # (Auto) 1.68 (0.9-3.2) K/mm3 Bennett # (Auto) 0.6 (0.1-0.6) K/mm3 Eos # (Auto) 0.4 H (0-0.3) K/mm3 Baso # (Auto) 0.1 (0.0-0.1) K/mm3 Abs Immat Gran (auto) 0.04 H (0.00-0.031) K/mm3 Absolute Neuts (auto) 6.2 (1.3-6.7) K/mm3 Absolute Nucleated RBC 0.000 (0.0-0.012) K/mm3 Nucleated RBC % 0.0 (0.0-0.2) % PT 13.8 (11.1-14.7) Seconds INR 1.0 APTT 29.2 (22.3-36.8) Seconds Sodium 139 (137-145) mmol/L Potassium 4.6 (3.4-5.0) mmol/L Chloride 103 (98-107) mmol/L Carbon Dioxide 29 (22-30) mmol/L Anion Gap 7 (4-12) mmol/L BUN 19 H D (7-17) mg/dL Creatinine 1.04 H (0.7-1.0) mg/dL Estim Creat Clear Calc 33 ml/min Estimated GFR > 60 (59 - ) Glucose 102 (65-110) mg/dL POC Capillary Glucose 103 (65-105) mg/dl Lactic Acid (0.7-2.0) mmol/L Calcium 9.3 (8.4-10.2) mg/dL Total Bilirubin 0.5 (0.2-1.3) mg/dL AST 22 (14-36) U/L ALT 14 (6-35) U/L Alkaline Phosphatase 116 (38-126) U/L Troponin I < 0.012 (0.000-0.034) ng/mL Total Protein 8.0 (6.3-8.2) g/dL Albumin 3.8 (3.5-5.1) g/dL TSH (Reflex) 0.715 (0.465-4.68) uIU/mL Urine Color Yellow (Yellow) Urine Appearance Clear (Clear) Urine pH 7.0 (5.0-9.0) Ur Specific [place] 1.020 (1.001-1.035) Urine Protein Negative (Negative) mg/dL Urine Glucose (UA) Negative (Negative) mg/dL Urine Ketones Negative (Negative) mg/dL Ur Blood (Man) Negative (Negative) Urine Nitrate Negative (Negative) Urine Bilirubin Negative (Negative) Urine Urobilinogen 1.0 (<2.0) mg/dL Leukocyte Esterase Rfl Trace H (Negative) RICARDO/UL Urine RBC 3-5 H (0-2) /hpf Urine WBC 0-5 (0-3) /hpf Ur Squamous Epith Cells None seen (Few) /hpf Urine Bacteria None seen /hpf Urine Casts 3-5 11/01/24 11/01/24 Range/Units 13:32 16:54 WBC (4.5-10.0) K/mm3 RBC (4.2-5.4) M/mm3 Hgb (12.0-15.0) g/dL Hct (37.0-47.0) % MCV (80-100) fl MCH (26-34) pg MCHC (32-36) g/dl RDW (11.5-14.5) % Plt Count (150-375) k/mm3 MPV (7.4-10.4) fl Immature Gran % (Auto) (0-0.5) % Neut % (Auto) (45.5-73.1) % Lymph % (Auto) (18.3-44.2) % Bennett % (Auto) (2.6-8.5) % Eos % (Auto) (0-4.4) % Baso % (Auto) (0.2-1.2) % Lymph # (Auto) (0.9-3.2) K/mm3 Bennett # (Auto) (0.1-0.6) K/mm3 Eos # (Auto) (0-0.3) K/mm3 Baso # (Auto) (0.0-0.1) K/mm3 Abs Immat Gran (auto) (0.00-0.031) K/mm3 Absolute Neuts (auto) (1.3-6.7) K/mm3 Absolute Nucleated RBC (0.0-0.012) K/mm3 Nucleated RBC % (0.0-0.2) % PT (11.1-14.7) Seconds INR APTT (22.3-36.8) Seconds Sodium (137-145) mmol/L Potassium (3.4-5.0) mmol/L Chloride (98-107) mmol/L Carbon Dioxide (22-30) mmol/L Anion Gap (4-12) mmol/L BUN (7-17) mg/dL Creatinine (0.7-1.0) mg/dL Estim Creat Clear Calc ml/min Estimated GFR (59 - ) Glucose (65-110) mg/dL POC Capillary Glucose (65-105) mg/dl Lactic Acid 2.1 H 1.3 (0.7-2.0) mmol/L Calcium (8.4-10.2) mg/dL Total Bilirubin (0.2-1.3) mg/dL AST (14-36) U/L ALT (6-35) U/L Alkaline Phosphatase (38-126) U/L Troponin I (0.000-0.034) ng/mL Total Protein (6.3-8.2) g/dL Albumin (3.5-5.1) g/dL TSH (Reflex) (0.465-4.68) uIU/mL Urine Color (Yellow) Urine Appearance (Clear) Urine pH (5.0-9.0) Ur Specific [place] (1.001-1.035) Urine Protein (Negative) mg/dL Urine Glucose (UA) (Negative) mg/dL Urine Ketones (Negative) mg/dL Ur Blood (Man) (Negative) Urine Nitrate (Negative) Urine Bilirubin (Negative) Urine Urobilinogen (<2.0) mg/dL Leukocyte Esterase Rfl (Negative) RICARDO/UL Urine RBC (0-2) /hpf Urine WBC (0-3) /hpf Ur Squamous Epith Cells (Few) /hpf Urine Bacteria /hpf Urine Casts Imaging Data Attestation: I personally reviewed and interpreted this imaging study as follows: My impression: Impressions Head CT 11/01/24 15:17 IMPRESSION: 1. No acute intracranial process. 2. Chronic infarcts in the bilateral cerebellar hemispheres, right occipital and parietal lobes, left thalamus and bilateral basal ganglia. 3. Age-related changes including mild to moderate diffuse volume loss and moderate scattered white matter hypoattenuation consistent with chronic small vessel ischemic disease. Discharge Plan Discharge Clinical Impression: Mental status change resolved, Acute alteration in mental status Patient Disposition: [facility] Living Condition: Stable Instructions: Antibiotic Form Patient Language: Ugandan Prescriptions: No Action carvedilol [Coreg] 3.125 mg Tablet 3.125 mg PO Q12HR Qty: 60 0RF Rx Instructions: HOLD if SBP<110 OR HR<55 hydralazine 50 mg Tablet 50 mg PO TID Qty: 90 0RF Rx Instructions: HOLD if SBP<110 lisinopril 20 mg Tablet 20 mg PO DAILY Qty: 30 0RF Rx Instructions: HOLD if SBP<110 Minerin Creme Cream 1 applic topical DAILY Qty: 113 0RF Rx Instructions: apply to dry skin until clear then use as needed Follow-up/Referrals: UNKNOWN,DOCTOR [Primary Care Provider] - Stand Alone Forms: Senior Care Discharge
--- NOTE | 2024-11-01 23:24 | PC.NURSE ---
This RN spoke with Jerry SANTA from [facility]. RN updated about pt POC and results. RN also updated about pt ETA to facility.
== END 2024-11-01 23:30 ==
PROVIDERS: Emergency Medicine; Emergency Provider Student in an Organized Health Care Education/Training Program
DX: R41.82 Altered mental status, unspecified (principal); I69.354 Hemiplegia and hemiparesis following cerebral infarction affecting left non-dominant side; I10 Essential (primary) hypertension; E11.9 Type 2 diabetes mellitus without complications; E78.2 Mixed hyperlipidemia; Z79.899 Other long term (current) drug therapy
CPT/HCPCS: 36415; 51702; 70450; 80053; 81001; 82948; 83605; 84443; 84484; 85025; 85610; 85730; 93005; 96360; 99284; J7120

== ENCOUNTER 2025-01-14 12:55 | Emergency (ER) | payer MEDICARE, SELFPAY ==
--- NOTE | ~2025-01-14 | CT_ITS ---
CT cervical spine wo con Ordering provider: Jade Lopez History: . fall . Comparison: None. Technique: CT of the cervical spine was performed without contrast. Sagittal and coronal reformatted images were also obtained and reviewed. Automated exposure control and iterative reconstruction henry hnique were employed. The dose-length product was 173.25 mGy-cm. FINDINGS: VERTEBRAE: No subluxation or acute fracture. The occipital condyles are intact. Degenerative changes of the spine. DISC SPACES: Narrowing of the disc C4-C5 and C5-C6. Multilevel uncovertebral joint osteoarthritic chloe nges. Multilevel facet joint disease. Multilevel intervertebral foraminal narrowing. PARASPINOUS SOFT TISSUES: Bilateral carotid calcifications. Enlarged left lobe of the thyroid with po ssible calcified lesion.. IMPRESSION: No acute osseous abnormality cervical spine. Multilevel degenerative disc disease. Large left lobe of the thyroid. Reviewed, dictated and finalized at location A.
--- NOTE | ~2025-01-14 | CT_ITS ---
CT head without contrast Indication: Status post fall COMPARISON: 11/01/2024 Technique: Serial scans were obtained through the brain without the administration of contrast. Dose reduction technique was used on this scan by utilizing automated exposure control and iterative recon struction technique. The dose-length product (DLP) was 605.33 mGy-cm. Findings: There is no evidence of intracranial hemorrhage, mass lesion, or acute infarct. 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 The ventricles and sub arachnoid spaces are dilated, consistent with moderate atrophy. Low attenuation regions are seen wit hin the periventricular white matter bilaterally, likely representing changes from chronic microvascu lar ischemic disease. There is no evidence of edema, mass effect or midline shift. The visualized p aranasal sinuses and mastoid air cells are clear. Impression: No intracranial hemorrhage, mass, or acute infarct. 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 Atrophy and chronic white matter changes, as above. Reviewed, dictated and finalized at location . Impression: No intracranial hemorrhage, mass, or acute infarct. 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 Atrophy and chronic white matter changes, as above.
[2025-01-14 13:40] VITALS: BP 137/90; PULSE 84; RESP 16; TEMP 36.6; O2SAT 100
--- OUTSIDE RECORDS SUMMARY | 2025-01-14 14:24 | XMS_ITS | Clinical Summary ---
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/27/2018 History of ischemic left MCA stroke 11/24/2018 Atrial fibrillation ([facility]) 11/22/2018 Diabetes mellitus ([facility]) 11/22/2018 Resolved Problems Problem Noted Date Diagnosed Date Resolved Date ELVIS (acute kidney injury) 11/23/2018 Rhabdomyolysis 11/23/2018 01/05/2019 Acute renal insufficiency 11/22/2018 Immunizations Immunization Administration Dates Next Due Influenza Adult (Generic) [...] on file Legal Sex Female 3:27 PM [employer]ALL [employer] Gender Identity Not on file Sexual Orientation Straight 11/24/2018 10 :43 PM [employer] WALL P[employer] Last Filed Vital Signs Vital Sign Reading [...] cm (5' 6 ) 11/24/2018 10:28 PM [employer] W[employer] P[employer]ER Body Mass Index 30.18 11/24/2018 10:28 PM [employer] WALL P[employer]ER Plan of Treatment Health Maintenance Due Date Last Done Comments Kidney Health Evaluation 1941 Diabetes: Retinopathy Eye Exam 1959 DTaP, Tdap and Td Vaccines ( 1 - Tdap) 1960 Pneumococcal Vaccine: 50+ Ye ars (1 of 2 - PCV) 1960 Zoster Vaccines (1 of 2) 1991 Annual Medicare Wellness Visit 2006 Dexa Scan (General) 2006 RSV Immunization or 60+ Years (1 - 1-dose 75+ series) 2016 Hemoglobin A1C 06/24/2019 12/22/2018 Lipid Panel 12/23/2019 12/22/2018 COVID-19 Vaccine ( - 2023-2 5 season) 2024 Meningococcal B Vaccine Aged Out No l [...] 7.5(H) <5.7 % 12/23/2018 9:13 AM CDT [facility] Comment: INCREASED RISK OF DIABETES<5.7% NON-DIABETES5.7-6.4% INCREASED RISK FOR FUTURE DIABETES> OR = 6.5 CONSISTENT WITH DIABETES STANDARDS OF MEDICAL CARE IN [facility](SUPP 1): S1-S61,2010 WHOLE BLOOD SPECIMEN / Unknown 12/22/2018 12:00 PM CDT 12/22/2018 2:38 PM CDT us Generic Conversion Md [facility] Final R esult [facility] [address] [place] [address], * (ABNORMAL) LIPID PANEL (12/22/2018 12:00 PM CDT) CHOLESTEROL 178 <200.0 MG/DL 12/22/2018 3:42 PM CDT [facility] TRIGLYCERIDES 96 <150 MG/DL 12/22/2018 3:42 PM CDT [facility] HDL 49 >40.0 MG/DL 12/22/2018 3:42 PM CDT [facility] LDL (CALCULATED) 110(H) <100 MG/DL 12/22/2018 3:42 PM CDT [facility] NON HDL CHOLESTEROL 129 <130 MG/DL 12/22/2018 3:42 PM CDT [facility] CHOL/HDL RATIO 3.6 0.0 - 4.5 12/22/2018 3:42 PM CDT [facility] VLDL CALCULATION 19 5 - 55 MG/DL 12/22/2018 3:42 PM CDT [facility] LIPID INTERPRETATION 12/22/2018 3:42 PM CDT [facility] Comment: NIH CONCENSUS REPORT RECOMMENDATIONS: [...] Conversion Md [facility] Final R esult [facility] [address] [place] [address], from Last 3 Months or Most Recently Relevant to Health Maintenance Insurance MEDICARE MEDICAID Advance Directives * Full Code (Latest Code Status on File) Date Activated Date Inactivated Comments 11/24/2018 11:18 PM 12/09/2018 1:48 PM Care Teams Flatbed Driver Relationship Specialty Start Date End Date None, Provider, PCP - General 11/26/18
--- OUTSIDE RECORDS SUMMARY | 2025-01-14 14:24 | XMS_ITS ---
Author Organization [facility] Care Team Providers Care Press Leader Name Role Phone Graciela Land Unavailable Unavaila nicci Torresdu, Fer Anderson Unavailable Unavailable Ampadu, Junie Unavailable Unavailable Allergies and adverse reactions No Known Allergies Care Team Name Role Address Phone Organization Dates Fer Salgado PCP [address] [place], [place], [facility], [facility] (Office): [facility] 07/13/2023 - 08/26/2023 Graciela Land Attending Physician [address] [place], [place], [facility], [facility] (Office): : [facility] 07/13/2023 - 08/26/2023 Junie Salgado Attending Physician [address] [place], [place], [facility], [facility] (Office): : [facility] 07/13/2023 - 08/26/2023 Goals Section Description Status Target Date The resident will have no in dications of psychosocial well-being problem by/through review date. Active 11/01/2023 Current level of care is waqas ropriate considering current physical/ social/ emotional status. Active 11/01/2023 If the resident's heart stop s, or if they stop breathing, CPR WILL be initiated in honor with their FULL code wishes. Active 02/2024 Minimize complications related to COVID-19 infec tion Active 11/01/2023 Minimize the risk of residen t exposure to the novel Coronavirus (COVID-19). Active 11/01/2023 Prevent a serious fall related injury Active 11/01/2023 Resident Discharge needs will be identified Acti ve 11/01/2023 Resident to maintain Isolation as directed Activ e 11/01/2023 Resident will be able to par ticipate in enjoyable activities during their stay Active 11/01/2023 Resident will be free of com plications related to ADL deficit through next review date: Active 11/01/2023 Resident will be kept clean and comfortable through next review date. Active 11/01/2023 Resident will have a regular bowel elimination pattern AEB soft/formed bowel movements at least once every three days through the next review: Active 11/01/2023 Resident will maintain ADEQUATE NUTRITION levels . Active 11/01/2023 Resident will maintain a saf e and highest level of functioning through next review Active 11/01/2023 Resident will maintain intac t skin or current condition of skin integrity through next review date. Active 11/01/2023 Resident will not exhibit any signs or symptoms of ASPIRATION Active 11/01/2023 Resident will not experience a decline in overall function related to pain through next review date. Active 11/01/2023 Resident will not have any s erious side effects related to cardiovascular medications and will not have any unrecognized signs of a worsening cardiovascular condition Active 11/01/19 Resident will state/demonstr ate relief or reduction in pain intensity within one hour after receiving interventions through next review date. Active 11/01/2023 Resident with be treated wit h respect and dignity as an individual, and staff will address, supports and/or enhances his/her feelings of self-worth including personal control over choices and cultural preferences. Active 11/01/2023 Resident's needs will be ant icipated and met by staff through next review date: Active 11/01/2023 Residents preferences will be honored as able Ac tive 11/01/2023 The patient will display adequate nutrition Acti ve 11/01/2023 The resident will be able to communicate basic needs or make routine daily decisions on a daily basis through the review date. Active 11/01/2023 The resident will be free fr om complications of cardiac problems through the review date. Active 11/01/2023 The resident will have impro ralph mood state (SPECIFY: happier, calmer appearance, no s/sx of depression, anxiety or sadness) through the review date. Active 11/01/2023 The resident will have no co mplications from hyper or hypoglycemia through the review date. Active 11/01/2023 The resident will have no in dications of psychosocial well-being problem by/through review date Active 11/01/2023 The resident will have no in dications of psychosocial well-being problem by/through review date. Active 11/01/2023 The resident will maintain c urrent level of ADL function through the review date. Active 11/01/2023 The resident will maintain o ptimal quality of life within limitation imposed by visual function through the review date. Active 11/01/2023 The resident will not have a n interruption in normal activities due to pain through the review date. Active 11/01/2023 The resident will not have c omplications related to aspiration through the review date. Active 11/01/2023 Immunizations Immunization Status Vaccine Details Vaccine Code CodeSystem Date Notes Flucelvax (Influenza vaccine) completed Influenza, split virus, quadrivalent, injectable, preservative free lotNumber: [id number] expiry: 03/25/2023 Given 0.5 ml Left Deltoid intramuscularly 150 CVX created date: 07/21/2023 consent date: 07/21/2023 administer ed date: 07/15/2023 Educated by Anabelle Phillips Rn on 07/21/2023 Medications Section Medication Name Status Code CodeSystem Dose Route Frequency Admin Type Sig Text Start Date End Date Citroma Solution 1.745 GM/30ML active 4026503 RXNORM 296 ml Oral as needed PRN Give 296 ml by mouth as needed for consti pation In AM if no result s after enema. If no result s within 1 hour of comple tion of bowel protoc ol, regino t immedi ately for furthe r orders . 2022 - Carvedilol Oral Tablet 3.125 MG active 291048 RXNORM 1 tablet Oral one time a day Routine Give 1 tablet by mouth one time a day relate d to UNSPEC IFIED ATRIAL FIBRIL LATION (I48.9 1) 2022 - hydrALAZINE HCl Oral Tablet 50 MG active 615574 RXNORM 1 tablet Oral three times a day Routine Give 1 tablet by mouth three times a day relate d to ESSENT IAL (PRIMA RY) HYPERT ENSION (I10) HOld if SBP is less than 110 2022 - Fleet Enema active 1 applic ation Rectal as needed PRN Insert 1 applic ation rectal ly as needed for for consti pation If no result s 1 day after suppos itory. 2022 - Milk of Magnesia Suspension 400 MG/5ML active 927616 RXNORM 30 ml Oral as needed PRN Give 30 ml by mouth as needed for Consti pation at bedtim e if not BM in 3 days 2022 - Bisacodyl Suppository 10 MG active 769712 RXNORM 1 suppos itory Rectal as needed PRN Insert 1 suppos itory rectal ly as needed for for consti pation daily if no result s for MOM 2022 - Minerin Creme External Cream active n/a n/a Topical at bedtime Routine Apply to skin topica lly at bedtim e for dryski n relate d to OTHER SYMPTO MS AND SIGNS INVOLV ING COGNIT BEBO FUNCTI ONS AND AWAREN ESS (R41.8 9) discon tinue when healed 2022 - Acetaminophen Tablet 325 MG active 374012 RXNORM 2 tablet Oral as needed PRN Give 2 tablet by mouth every 4 hours as needed for Mild Pain, NTE 3 Grams in 24 hours Non-Ph arm Interv ention s- 1 =music , aromat herapy , light touch/ massag e 2 =Remin iscenc e,real ity orient ation, valida tion therap y 3 =exerc ise, activi ties 4 =1:1 intera ction, pet therap y 5 =Reduc ed stimul ation, quiet area AND Give 2 tablet by mouth every 4 hours as needed for Temp 100F or above 2022 - 412886 RXNORM 2 tablet Oral as needed PRN Give 2 tablet by mouth every 4 hours as needed for Mild Pain, NTE 3 Grams in 24 hours Non-Ph arm Interv ention s- 1 =music , aromat herapy , light touch/ massag e 2 =Remin iscenc e,real ity orient ation, valida tion therap y 3 =exerc ise, activi ties 4 =1:1 intera ction, pet therap y 5 =Reduc ed stimul ation, quiet area AND Give 2 tablet by mouth every 4 hours as needed for Temp 100F or above 2022 - Lisinopril Oral Tablet 20 MG active 155893 RXNORM 1 tablet Oral one time a day Routine Give 1 tablet by mouth one time a day for Elevat ed Blood Pressu re Hold if SBP <110 2022 - Mental Status Section Date Assessment Total Score Description 07/18/2023 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 CAM 2 Delirium indica jasen 07/15/2023 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 CAM 2 Delirium indica jasen Problems Problem # Description Date of onset Resolved Date Code CodeSystem Concern Status 1 MUSCLE WASTING AND ATROPHY, NOT ELSEWHERE CLASSIFIED, UNSPECIFIED SITE [address] active 2 COVID-[address] active 3 OTHER ABNORMALITIES OF GAIT AND MOBILITY [address] active 4 ADULT FAILURE TO THRIVE [address] active 5 CEREBRAL ATHEROSCLEROSIS [address] active 6 DYSPHAGIA, OROPHARYNGEAL PHASE [address] active 7 ESSENTIAL (PRIMARY) HYPERTENSION [address] active 8 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 HEMORRHAGE AFFECTING RIGHT DOMINANT SIDE [address] active 9 [address]KALEMIA [address] active 10 MUSCLE WEAKNESS (GENERALIZED) [address] active 11 NEED FOR ASSISTANCE WITH PERSONAL CARE [address] active 12 OTHER FATIGUE [address] active 13 OTHER MALAISE [address] active 14 OTHER SEQUELAE OF CEREBRAL INFARCTION 023 07/12/[address] completed 15 PERSONAL HISTORY OF TRANSIENT ISCHEMIC ATTACK (TIA), AND CEREBRAL INFARCTION WITHOUT RESIDUAL DEFICITS [address] active 16 SPONDYLOSIS WITHOUT MYELOPATHY OR RADICULOPATHY, THORACIC REGION [address] active 17 TYPE 2 DIABETES MELLITUS WITHOUT COMPLICATIONS [address] active 18 UNSPECIFIED ATRIAL FIBRILLATION [address] active 19 UNSPECIFIED PROTEIN-CALORIE MALNUTRITION [address] active 20 UNSPECIFIED SEQUELAE OF UNSPECIFIED CEREBROVASCULAR DISEASE [address] active [address] WE[address] active 22 COVID-19 021 06/10/[address] completed 23 CONSTIPATION, UNSPECIFIED 06/25/[address] completed 24 DIFFICULTY IN WALKING, NOT ELSEWHERE CLASSIFIED 06/25/[address] completed 25 DYSARTHRIA FOLLOWING NONTRAUMATIC INTRACEREBRAL HEMORRHAGE 06/25/[address] completed 26 ESSENTIAL (PRIMARY) HYPERTENSION 06/25/[address] completed 27 FRONTAL LOBE AND EXECUTIVE FUNCTION DEFICIT 06/25/[address] completed 28 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 HEMORRHAGE AFFECTING RIGHT DOMINANT SIDE 06/25/[address] completed 29 MUSCLE WEAKNESS (GENERALIZED) 06/25/[address] completed 30 NONTRAUMATIC INTRACEREBRAL HEMORRHAGE IN HEMISPHERE, SUBCORTICAL 06/25/[address] completed 31 OTHER SYMPTOMS AND SIGNS INVOLVING COGNITIVE FUNCTIONS AND AWARENESS 06/25/[address] completed 32 PERSONAL HISTORY OF TRANSIENT ISCHEMIC ATTACK (TIA), AND CEREBRAL INFARCTION WITHOUT RESIDUAL DEFICITS 06/25/[address] completed 33 TYPE 2 DIABETES MELLITUS WITHOUT COMPLICATIONS 06/25/[address] completed 34 UNSPECIFIED ATRIAL FIBRILLATION 06/25/[address] completed 35 UNSPECIFIED PROTEIN-CALORIE MALNUTRITION 06/25/[address] completed Reason for Referral No Reasons for Referral Entered Social History Social History Observation Description Start Date End Date Code Code System Current Smoking Status Tobacco smoking consumption unknown 001422637 SNOMED CT Sex Assigned At Female 1940 15119-8 [facility] Vital Signs Code Code System Vitals Name Values and Units Timing Information 8462-4 [facility] Blood Pressure-Diastolic Value=72 Un its=mmHg 09/05/2023 8480-6 [facility] Blood Pressure-Systolic Pseou=578 Un its=mmHg 09/05/2023 04619-4 [facility] Pain Level Value=0.0 09/05/2023 8867-4 [facility] Heart rate Value=70.0 Units=/min 04/2023 8310-5 [facility] Body Temperature Value=98.0 Units= F 08/28/2023 20058-1 [facility] O2 % BldC Oximetry Value=98.0 Units= % 08/28/2023 9279-1 [facility] Respiratory Rate Value=18.0 Units=/m in 08/28/2023 81329-3 [facility] Weight Iagzl=398.0 Units=Lbs 8302-2 [facility] Height Value=64.0 Units=Inches 07/13/2023
--- OUTSIDE RECORDS SUMMARY | 2025-01-14 14:24 | XMS_ITS | Encounter Summary ---
Author Organization [facility] Address [facility] [place] [address] Care Team Providers Care Clinical Office Technician Name Role Phone None, Provider Primary Care Provider Lucio grajeda Encounter Details Date Type Department Care Team (Late st Contact Info) Description 12/15/2018 Hospital Follow-up Call [facility] [place], [place] [id number] Karen Selby RN Social History Tobacco Use [...] on file Legal Sex Female 3:27 PM [employer] Gender Identity Not on file Sexual Orientation Straight 11/24/2018 10 :43 PM [employer] documented as of this encounter Functional Status * RETIRED Are you deaf or do you have serious difficulty hearing Answer Date of Assessment Author Status No 11/24/2018 10:30 PM [employer] Acti ve * RETIRED Are you blind or do you have serious difficulty seeing, even when wearing glasses? Answer Date of Assessment Author Status No 11/24/2018 10:30 PM [employer] Acti ve * Do you have serious difficulty walking or climbing stairs? Answer Date of Assessment Author Status Yes 11/24/2018 10:30 PM [employer] Ritika Weaver RN Active * Do you [...] on filedocumented in this encounter Care Teams Clinical Office Technician Relationship Specialty Start Date End Date None, Provider, PCP - General 11/26/18 documented as of this encounter
--- OUTSIDE RECORDS SUMMARY | 2025-01-14 14:24 | XMS_ITS | Continuity of Care Document ---
Author Organization [facility] Address [address] [place] [address] [place] [address] Phone Care Team Providers Care Supervisor Agency Appointments Name Role Phone Clyde Monge MD Unavailable [...] Copied on Encounter OFFICE/OUTPA TIENT VISIT, EST [facility], [address] [place], [address], [place] tel:[phone] [facility] weakness1 (chief complaint) Adult failure to thriveAbnormality of gaitEssential (primary) hypertensionAnemiaA bnormality of albuminDisorder of thyroid, unspecifiedMixed hyperlipidemia 3 Saleem Tang. [address], [address] , [place]. tel:[phone] PREV VISIT, EST, 65 & OVER [facility], [address] [place], [address], [place] tel:[phone] [facility] physical (chief complaint) Encounter for general adult medical exam w abnormal findingsEssential (primary) hypertensionAtrial fibrillationStrokeT hyroid noduleType 2 diabetes mellitus without complicationsAbnorm ality of gaitAnemia 3 Saleem Tang. [address], [address] , [place]. tel:[phone] OFFICE/OUTPA TIENT VISIT, [facility], [address] [place], [address], [place] tel:[phone] [facility] HTN (chief complaint) CVA (chief complaint) weight loss1 (chief complaint) DM (chief complaint) Essential (primary) hypertensionType 2 diabetes mellitus without complicationsAtrial fibrillationThyroid noduleStroke 3 Saleem Tang. [address], [place], [place], [address] , [place]. tel:[phone] OFFICE/OUTPA TIENT VISIT, EST [facility], [address] [place], [address], [place] tel:[phone] [facility] HTN (chief complaint) DM (chief complaint) weight loss1 (chief complaint) Essential (primary) hypertensionType 2 diabetes mellitus without complicationsAbnorm al weight loss 2 Monge Clyde. [address], [place], [place], [address] , [place]. tel:[phone] OFFICE/OUTPA TIENT VISIT, EST [facility], [address] [place], [address], [place] tel:[phone] [facility] brain bleeding1 (chief complaint) AnemiaAtrial fibrillationNontrau matic intracerebral hemorrhage, unspecifiedEssentia l (primary) hypertensionType 2 diabetes mellitus without complications May- 2 Monge Clyde. [address], [place], [place], [address] , [place]. tel:[phone] OFFICE/OUTPA TIENT VISIT, [facility], [address] [place], [address], [place] tel:[phone] [facility] HTN (chief complaint) DM (chief complaint) Hypertensive emergencyAtrial fibrillationType 2 diabetes mellitus without complications Mar- 2 Monge Clyde. [address], [place], [place], [address] , [place]. tel:[phone] OFFICE/OUTPA TIENT VISIT, [facility], [address] [place], [address], [place] tel:[phone] [facility] Medicine physical (chief complaint) Encounter for general adult medical exam w abnormal findingsEssential (primary) hypertensionAtrial fibrillationNontrau matic intracerebral bleedingThyroid noduleType 2 diabetes mellitus without complicationsAbnorm al weight loss 2 Saleem Clyde. [address], [place], [place], [address] , [place]. tel:[phone] OFFICE/OUTPA TIENT VISIT, [facility], [address] [place], [address], tel:[phone] [facility] CVA (chief complaint) CVA1 (chief complaint) Atrial fibrillationEssenti al (primary) hypertensionType 2 diabetes mellitus without complicationsNontra umatic intracerebral bleeding 1 Saleem Price [address], [address] , [place]. tel:[phone] OFFICE/OUTPA TIENT VISIT, [facility], [address] [place], [address], tel:[phone] [facility] physical (chief complaint) Encounter for general adult medical exam w abnormal findingsEssential (primary) hypertensionAtrial fibrillationType 2 diabetes mellitus without complications 0 1 Saleem Price [address], [address] , [place]. tel:[phone] OFFICE/OUTPA TIENT VISIT, [facility], [address] [place], [address], tel:[phone] [facility] DM (chief complaint) HTN (chief complaint) afib (chief complaint) Atrial fibrillationEssenti al (primary) hypertensionType 2 diabetes mellitus without complicationsThyroi d noduleAbnormality of globulin 0 Saleem Price [address], [address] , [place]. tel:[phone] OFFICE/OUTPA TIENT VISIT, [facility], [address] [place], [address], tel:[phone] [facility] DM (chief complaint) globulin1 (chief complaint) renal (chief complaint) HTN (chief complaint) thyroid nodule1 (chief complaint) Essential (primary) hypertensionAtrial fibrillationLiver diseaseType 2 diabetes mellitus without complicationsThyroi d noduleAbnormality of globulinVitamin D deficiency, unspecifiedRenal disease 0 Saleem Tang. [address], [place], [place], [address] , [place]. tel:[phone] Referring Provider: Ketty Hanna [address], [place], [place], [address]. tel:[phone] OFFICE/OUTPA TIENT VISIT, [facility], [address], [place], [place], [address], [place] tel:[phone] [facility] physical (chief complaint) Encounter for general adult medical exam w abnormal findingsStrokeAtria l fibrillationLiver diseaseType 2 diabetes mellitus without complicationsEssent ial (primary) hypertension 9 Saleem Tang. [address], [address], [place], [place], [address] , [place]. tel:[phone] Referring Provider: Ketty Hanna [address], [place], [place], [address]. tel:[phone] OFFICE/OUTPA TIENT VISIT, [facility], [address], [place], [place], [address], [place] tel:[phone] [facility] CVA1 (chief complaint) StrokeAtrial fibrillationRhabdom yolysisType 2 diabetes mellitus without complicationsThyroi d nodule 9 Saleem Tang. [address], [place], [place], [address] , [place]. tel:[phone] Referring Provider: Ketty Hanna [address], [place], [place], [address]. tel:[phone] OFFICE/OUTPA TIENT VISIT, [facility], [address], [place], [place], [address], [place] tel:[phone] [facility] HTN (chief complaint) edema1 (chief complaint) skin1 (chief complaint) thyroid (chief complaint) low D (chief complaint) Type 2 diabetes mellitus without complicationsAbnorm ality of globulinRenal diseaseDisorder of thyroid, unspecifiedVitamin D deficiency, unspecifiedSkin changes 8 Saleem Tang. [address], [place], [place], [address] , [place]. [phone] Referring Provider: Ketty Hanna [address], [place], [place], [address]. tel:[phone] OFFICE/OUTPA TIENT VISIT, [facility], [address], [place], [place], [address], [place] tel:[phone] [facility] Medicine Physical (chief complaint) Encounter for general adult medical exam w abnormal findingsEssential (primary) hypertensionType 2 diabetes mellitus without complicationsStroke Cellulitis of right lower limb 8 Saleem Tang. [address], [place], [place], [address] , [place]. [phone] Referring Provider: Ketty Hanna [address], [place], [place], [address]. tel:[phone] OFFICE/OUTPA TIENT VISIT, [facility], [address], [place], [place], [address], [place] tel:[phone] [facility] HTN (chief complaint) DM (chief complaint) edema1 (chief complaint) EdemaEssential (primary) hypertensionType 2 diabetes mellitus without complicationsCatara ct with neovascularization, bilateral 7 Saleem Tang. [address], [place], [place], [address] , [place]. [phone] Referring Provider: Ketty Hanna [address], [place], [place], [address]. tel:[phone] OFFICE/OUTPA TIENT VISIT, [facility], [address], [place], [place], [address], [place] tel:[phone] [facility] DM (chief complaint) cataract1 (chief complaint) HTN (chief complaint) edema1 (chief complaint) Type 2 diabetes mellitus without complicationsEdemaE ssential (primary) hypertensionCatarac t in diseases classified elsewhere 7 Saleem Tang. [address], [place], [place], [address] , [place]. tel:[phone] Referring Provider: Ketty Hanna [address], [place], [place], [address]. tel:[phone] OFFICE/OUTPA TIENT VISIT, [facility], [address], [address], [place] tel:[phone] [facility] DM (chief complaint) Other visual disturbancesType 2 diabetes mellitus without complicationsTransi ent cerebral ischemic attack 7 Saleem Tang. [address], [place], [place], [address] , [place]. tel:[phone] Referring Provider: Ketty Hanna [address], [place], [place], [address]. tel:[phone] OFFICE/OUTPA TIENT VISIT, [facility], [address], [place], [place], [address], [place] [phone] [facility] DM (chief complaint) CVA (chief complaint) CVA1 (chief complaint) HTN (chief complaint) edema1 (chief complaint) Type 2 diabetes mellitus without complicationsTransi ent cerebral ischemic attackEssential (primary) hypertensionEdema 7 Saleem Tang. [address], [place], [place], [address] , [place]. tel:[phone] Referring Provider: Ketty Hanna [address], [place], [place], [address]. tel:[phone] OFFICE/OUTPA TIENT VISIT, [facility], [address], [address], [place] tel:[phone] [facility] HTN (chief complaint) edema (chief complaint) eczema1 (chief complaint) weight loss1 (chief complaint) Essential (primary) hypertensionEdemaEc zemaAbnormal weight loss 6 Saleem Tang. [address], [place], [place], [address] , [place]. [phone] Referring Provider: Ketty Hanna [address], [place], [place], [address]. tel:[phone] OFFICE/OUTPA TIENT VISIT, [facility], [address], [place], [place], [address], [place] tel:[phone] [facility] edema (chief complaint) HTN (chief complaint) dry leg (chief complaint) Dietary surveillance and counselingEdemaUnsp ecified essential hypertensionAcute, but ill-defined, cerebrovascular disease 0-201 5 Saleem Tang. [address], [place], [place], [address] , [place]. tel:[phone] Referring Provider: Ketty Hanna [address], [place], [place], [address]. tel:[phone] OFFICE/OUTPA TIENT VISIT, [facility], [address], [place], [place], [address], [place] tel:[phone] [facility] HTN (chief complaint) Edema (chief complaint) TG (chief complaint) Dietary surveillance and counselingEdemaHype rtension, UnspecifiedOther and unspecified hyperlipidemia Damián-2 0201 4 Saleem Tang. [address], [place], [place], [address] , [place]. tel:[phone] Referring Provider: Ketty Hanna [address], [place], [place], [address]. tel:[phone] OFFICE/OUTPA TIENT VISIT, [facility], [address], [place], [place], [address], [place] tel:[phone] [facility] HTN (chief complaint) Dietary surveillance and counselingHypertens ion, UnspecifiedAcute, but ill-defined, cerebrovascular diseaseEdema 0 6201 3 Saleem Tang. [address], [place], [place], [address] , [place]. tel:[phone] Referring Provider: Ketty Hanna [address], [place], [place], [address]. tel:[phone] OFFICE/OUTPA TIENT VISIT, [facility], [address], [place], [place], [address], [place] tel:[phone] [facility] CVA (chief complaint) HTN (chief complaint) Edema (chief complaint) Dietary surveillance and counselingHypertens ion, UnspecifiedAcute, but ill-defined, cerebrovascular diseaseEdema 0 2 Saleem Tang. Ketty Garcia [facility] [place], [address] , . [phone] Referring Provider: Clyde Ketty Monge [facility] [address], [place], [place], [address]. tel:[phone] Family History Family Member Type Diagnosis Age At Onset Father Problem (finding) Unknown Disease Father Problem (finding) Other Mother Problem (finding) Alive and well Payers Payer name Insurance type Covered republican ID Authoriza tion(s) No Information Social History [...] [address]ou [address] [place], [place] [id number] Ordered: Referrals: Allopathic & Osteopathic Physicians : [...] n odule on MRI of brain from [facility] 2018/ Pt is noncompliant with thyroid ultrasound [...] held from the hospital due to rhabdo skin1 Pt state that he r LE feels very tight and send to dermatolgoy low D Pt has low vitam in [...] borderline renal function. Pt has normal UO Physical Pt needs annual physical. Pt has [...] o Body mass index (BMI) 28.0-28.9, adult Low cholesterol diet Related to Atrial fibrillation Take medication as directed Rela jasen to Atrial fibrillation Special diet education Related [...] Mental Status Date Cognitive Assessment Orientation - Dennard ed to time, place, person, situation.
--- OUTSIDE RECORDS SUMMARY | 2025-01-14 14:24 | XMS_ITS | Clinical Summary ---
Author Organization [facility] Address [address] [place] [address] Care Team Providers Care Tobacco Checkout Clerk Name Role Phone Clyde Monge MD Primary Care Provider Source Comments [facility],non-owned Affiliates and Associated Physician Practices is amultiple site organization consisting of ambulatory clinics and hospital sitesin [place], [place], [place] and [place]. This disclosure is being madepursuant to the Care Everywhere program and may not contain all information available regarding this patient. Last updated 18.[facility] Allergies No known active allergies Medications * Be aware that medications may not be up to date on this document. Alwaysverify current medications with the patient. vitamin D3 (CHOLECALCIFEROL ) 1000 UNITS tablet Take by mouth once [...] 6 units of insulin and Notify Physician 11/25/19 19 Active Additional Information Patient not taking.Reported on 04/17/2022 atorvastatin (LIPITOR) 40 MG tabletIndication s:Intraparenchym al hemorrhage of brain (HCC) Take 1 (one) tablet by mouth at bedtime 04/19/20 22 Active apixaban (ELIQUIS) 5 MG tabletIndication s:Cerebrovascula r accident secondary to Atrial Fibrillation Take 1 (one) tablet by mouth 2 times daily Reasons: 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 60 tablet 3 05/16/20 Active carvedilol (COREG) 12.5 MG tablet Take 1 (one) tablet by mouth 2 times daily with morning and evening meal 04/19/20 Active Active Problems Problem Noted Date Diagnosed Date Hypertensive emergency 04/16/2022 Intraparenchymal hemorrhage of brain 04/16/2022 Hyperlipidemia 04/16/2022 ELVIS (acute kidney injury) 11/23/2018 Rhabdomyolysis /traumatic/due to immobilization 11/23/2018 Hypertension 11/22/2018 Diabetes mellitus 11/22/2018 Atrial fibrillation 11/22/2018 Acute renal insufficiency 11/22/2018 Cerebrovascular accident 11/22/2018 Arterial ischemic stroke, MCA, left, acute 11/22 Immunizations Immunization Administration Dates Next Due INFLUENZA VACCINE, HIGH-DOSE [...] money to buy more. Never true 04/17/20 Within the past 12 months, t he food you bought just didn't last and you didn't have money to get more. Never true 04/17/2022 Comments Unknown Sex and Gender Information Value Date Recorded Sex Assigned at Not on file Legal Sex Female 8:03 AM [employer] Gender Identity Not on file Sexual Orientation [...] cm (5' 9 ) 11/22/2018 4:48 PM [employer] Body Mass Index 23.1 11/22/2018 4:48 PM [employer] Plan of Treatment Health Maintenance Due Date [...] 04/15/2022, Additional history exists COVID-19 VACCINE ( season) 2024 DEPRESSION SCREENING 09/26/2024 04/15/2022 DIABETES - URINE PROTEIN SCREENING 09/26/2024 INFLUENZA VACCINE (Season Ended) 2025 11/24/2018 HEPATITIS B VACCINE Aged Out No longe r eligible based on patient's age to complete this topic HIB VACCINE Aged Out No longer eligi ble based on patient's age to complete this topic HPV VACCINE Aged Out No longer eligi ble based on patient's age to complete this topic MENINGOCOCCAL (Group B) VACCINE SHARED DECISION-MAKING Aged Out No longer eligible based on patient's age to complete this topic MENINGOCOCCAL GROUPS A/C/Y/W VACCINE Aged Out No longer eligible based on patient's age to complete this topic Procedures Procedure Name Priority Date/Time Associated Diagnosis Comments BASIC METABOLIC PANEL (CALCIUM TOTAL) Routine 04/19/2022 2:23 AM CDT Intraparenchymal hemorrhage of brain HEMOGLOBIN A1C Routine 04/18/2022 12:31 AM CDT Intraparenchymal hemorrhage of brain from Last 3 Months or Most Recently Relevant to Health Maintenance Results * (ABNORMAL) BASIC METABOLIC PANEL (CALCIUM TOTAL) (04/19/2022 2:23 AM CDT) BUN 16 7 - 26 mg/dL 04/19/2022 3:[address] [facility] Creatinine 0.97(H) 0.56 - 0.96 mg/dL 04/19/2022 3:[address] [facility] Sodium 142 136 - 145 mmol/L 04/19/2022 3:[address] [facility] Potassium 3.2(L) 3.5 - 4.5 mmol/L 04/19/2022 3:[address] [facility] Chloride 109(H) 98 - 107 mmol/L 04/19/2022 3:[address] [facility] CO2 24 22 - 29 mmol/L 04/19/2022 3:[address] [facility] Glucose 96 70 - 115 mg/dL 04/19/2022 3:[address] [facility] Calcium 8.2(L) 8.4 - 10.2 mg/dL 04/19/2022 3:[address] [facility] Anion Gap 12 8 - 18 04/19/2022 3:[address] [facility] BUN/Creatinine Ratio 16 7 - 23 04/19/2022 3:[address] [facility] Osmolality Calculated 295 270 - 300 mOsm/kg 04/19/2022 3:[address] [facility] eGFR by CKD-EPI 59(L) >=90 mL/min/1.7 3 m2 04/19/2022 3:[address] [facility] Blood BLOOD SPECIMEN / Unknown Lab Venipuncture / Unknown 04/19/2022 2:23 AM CDT 04/19/2022 2:40 AM CDT Vijay Garcia MD LAB - CHEMISTRY ORDERABLES Fi nal Result Performing Organization Address [facility]/ZIP Co de Phone Number [facility] [address] [place] [address], [place] [phone] * (ABNORMAL) HEMOGLOBIN A1C (04/18/2022 12:31 AM CDT) Hemoglobin A1c 6.2(H) <=5.6 % 04/18/2022 3:45 PM CDT [facility] Estimated Average Glucose 131 mg/dL 04/18/2022 3:45 PM T [facility] Comment: HbA1c Interpretation: Normal : < 5.7% Pre-diabetes: 5.7-6.4% Diabetes: Equal to or greater than 6.5% Test results diagnostic of diabetes should be repeated for confirmation. Treatment target values recommended by ADA and other clinical organizations should be used to evaluate metabolic control in patients. Reference: [place] [employer], Standards of Care in Diabetes [...] CDT Vijay Garcia MD LAB - CHEMISTRY ORDERABLES Fi nal Result [facility] [address] [place] [address], [place] [phone] from Last 3 Months or Most Recently Relevant to Health Maintenance Insurance MEDICAID - [place] MEDICARE MEDICARE MEDICAID - OUT OF STATE Advance Directives * Full Code (Latest Code Status on File) Date Activated Date Inactivated Comments 04/16/2022 12:06 AM 04/19/2022 3:36 PM * Full Code Date Activated Date Inactivated Comments 11/22/2018 9:21 AM 11/24/2018 6:11 PM Care Teams Tobacco Checkout Clerk Relationship Specialty Start Date End Date [place] [address] PCP - General Family Medicine 04/16/22
--- NOTE | 2025-01-14 15:05 | ED.GENADULT ---
HPI - General Adult General Chief complaint: Unspecified Stated complaint: Slid out of wheelchair at [place]-No complaints Time Seen by Provider: 01/14/25 15:04 History of Present Illness HPI narrative: Patient is an 84-year-old female presents to the ER following fall at her intermediate. She reports she slid out of her wheelchair. Patient denies any pain at the time of examination. Her medical records indicate a history of high blood pressure, diabetes and stroke. Patient denies any loss consciousness, recent fevers, back pain, neurological changes. 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 Hypertension CVA (cerebral vascular accident) CVA, old, hemiparesis Hypertension Diabetes mellitus Surgical History Surgical History No pertinent past surgical history Family History Family History Other Unknown family medical history Social History Social History Smoking status: Never smoker Alcohol intake: never Substance use: never Lack of Transportation: No Lack of Food: Never True Current Housing: I Have Housing Concerned About Future Housing: No Difficulty Paying Gas/Electric Bills: No Difficulty Paying for Meds: No Currently Unemployed: No Education: Decline to Answer Difficulty w/ Childcare or Family Care: Decline to Answer Spiritual care concerns: No Exam Narrative: GENERAL: Well appearing, well-nourished, non-toxic, in no acute distress. HEAD: Normocephalic, atraumatic. NECK: Supple. No adenopathy, no masses. RESPIRATORY: Airway patent, respirations nonlabored. Clear to auscultation bilaterally, no rales, rhonchi, wheezing. CARDIOVASCULAR: Regular rate and rhythm without murmurs, rubs, or gallops. Peripheral pulses 2+ and equal bilaterally. ABDOMINAL: Soft, nontender, nondistended, no hepatosplenomegaly. Normoactive BS. MUSCULOSKELETAL: Moves all extremities. Strength/ROM intact. SKIN: Warm, dry, normal color. No rashes. NEURO: A&O X3. Speech clear. Cranial nerves intact. PSYCHIATRIC: Appropriate mood and affect. Normal interaction. Course Vital Signs Vital signs: Vital Signs Temperature 36.6 C 01/14/25 13:40 Pulse Rate 84 01/14/25 13:40 Respiratory Rate 16 01/14/25 13:40 Blood Pressure 137/90 01/14/25 13:40 Pulse Oximetry 100 01/14/25 13:40 Oxygen Delivery Room Air 01/14/25 13:40 Temperature 36.6 C 01/14/25 13:40 Pulse Rate 84 01/14/25 13:40 Respiratory Rate 16 01/14/25 13:40 Blood Pressure 137/90 01/14/25 13:40 Pulse Oximetry 100 01/14/25 13:40 Oxygen Delivery Room Air 01/14/25 13:40 Medical Decision Making MDM Narrative Medical decision making narrative: Patient is an 84-year-old female presents to the ER following fall at her intermediate. She reports she slid out of her wheelchair. Patient denies any pain at the time of examination. Her medical records indicate a history of high blood pressure and stroke. Patient denies any loss consciousness, recent fevers, back pain, neurological changes. Labs Ordered: None necessary Imaging Ordered: Head CT, CT cervical spine Medications Ordered: None necessary Results: Pt's CT scan indicates No intracranial hemorrhage, mass, or acute infarct. 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 Atrophy and chronic white matter changes, as above. No acute osseous abnormality cervical spine. Multilevel degenerative disc disease. Large left lobe of the thyroid. Diagnosis: Fall with no injury Patient Education/Shared MDM: Results of CT scans shared with patient. She continues to deny any pain. Patient strongly advised to follow-up with her PCP as soon as possible. She and her caregiver were also informed of patient's enlarged left thyroid on her CT scan. Patient had her TSH drawn in October, which was normal, so she was advised to follow with her PCP on this finding. She will be discharged home with no new prescriptions. Strict return precautions provided. Patient verbalized understanding is in agreement with plan. Vital signs stable at time of discharge. All questions answered. Vital Signs Vital Signs: Vital Signs Temperature 36.6 C 01/14/25 13:40 Pulse Rate 84 01/14/25 13:40 Respiratory Rate 16 01/14/25 13:40 Blood Pressure 137/90 01/14/25 13:40 Pulse Oximetry 100 01/14/25 13:40 Oxygen Delivery Room Air 01/14/25 13:40 Temperature 36.6 C 01/14/25 13:40 Pulse Rate 84 01/14/25 13:40 Respiratory Rate 16 01/14/25 13:40 Blood Pressure 137/90 01/14/25 13:40 Pulse Oximetry 100 01/14/25 13:40 Oxygen Delivery Room Air 01/14/25 13:40 Imaging Data Attestation: I personally reviewed and interpreted this imaging study as follows: Radiologist's impression: Impressions Head CT 01/14/25 13:21 Impression: No intracranial hemorrhage, mass, or acute infarct. 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 Atrophy and chronic white matter changes, as above. Cervical Spine CT 01/14/25 13:32 IMPRESSION: No acute osseous abnormality cervical spine. Multilevel degenerative disc disease. Large left lobe of the thyroid. Discharge Plan Discharge Clinical Impression: Fall, Encounter for examination following a fall, Fall from chair, initial encounter Patient Disposition: NH Half-Way/Asst Living Condition: Stable Instructions: Antibiotic Form Additional Instructions: Please return to the ER with any worsening symptoms. Follow-up with primary care provider as soon as possible. It is important to follow-up regarding your enlarged thyroid on your CT scan. Take all regularly scheduled medications as prescribed. Patient Language: Armenian Prescriptions: No Action carvedilol [Coreg] 3.125 mg Tablet 3.125 mg PO Q12HR Qty: 60 0RF Rx Instructions: HOLD if SBP<110 OR HR<55 hydralazine 50 mg Tablet 50 mg PO TID Qty: 90 0RF Rx Instructions: HOLD if SBP<110 lisinopril 20 mg Tablet 20 mg PO DAILY Qty: 30 0RF Rx Instructions: HOLD if SBP<110 Minerin Creme Cream 1 applic topical DAILY Qty: 113 0RF Rx Instructions: apply to dry skin until clear then use as needed Follow-up/Referrals: UNKNOWN,DOCTOR [Primary Care Provider] - Stand Alone Forms: Residential Discharge Time of Disposition: 15:16
--- NOTE | 2025-01-14 15:39 | PC.NURSE ---
this RN calls Marlena Coreas Macarthur at [address] this phone number [phone] to update RN. was sent to [facility].
[2025-01-14 17:04] VITALS: BP 142/86; PULSE 86; RESP 16; O2SAT 98
--- OUTSIDE RECORDS SUMMARY | 2025-01-14 17:07 | XMS_ITS ---
Author Organization [facility] Care Team Providers Care Department Of Sociology Chair Name Role Phone Graciela Land Unavailable Unavaila nicci Torresdu, Fer Anderson Unavailable Unavailable Ampadu, Junie Unavailable Unavailable Allergies and adverse reactions No Known Allergies Care Team Name Role Address Phone Organization Dates Fer Salgado PCP [address] [place], [place], [facility], [facility] (Office): [facility] 07/13/2023 - 08/26/2023 Graciela Land Attending Physician [address], [place], [facility], [facility] (Office): : [facility] 07/13/2023 - 08/26/2023 Junie Salgado Attending Physician [address] [place], [place], [facility], [facility] (Office): : [facility] 07/13/2023 - 08/26/2023 Goals Section Description Status [...] split virus, quadrivalent, injectable, preservative free lotNumber: [id number] expiry: 03/25/2023 Given 0.5 ml Left Deltoid intramuscularly 150 CVX created date: 07/21/2023 consent date: 07/21/2023 administer ed date: 07/15/2023 Educated by Aanbelle Phillips Rn on 07/21/2023 Medications Section Medication Name Status Code CodeSystem Dose Route Frequency Admin Type Sig Text Start Date End Date Citroma Solution 1.745 GM/30ML active 1746487 RXNORM 296 ml Oral as needed PRN Give 296 ml by mouth as needed for consti pation In AM if no result s after enema. If no result s within 1 hour of comple tion of bowel protoc ol, regino t immedi ately for furthe r orders . 2022 - Carvedilol Oral Tablet 3.125 MG active 235903 RXNORM 1 tablet Oral one time a day Routine Give 1 tablet by mouth one time a day relate d to UNSPEC IFIED ATRIAL FIBRIL LATION (I48.9 1) 2022 - hydrALAZINE HCl Oral Tablet 50 MG active 963043 RXNORM 1 tablet Oral three times a [...] Milk of Magnesia Suspension 400 MG/5ML active 314459 RXNORM 30 ml Oral as needed PRN Give 30 ml by mouth as needed for Consti pation at bedtim e if not BM in 3 days 2022 - Bisacodyl Suppository 10 MG active 987425 RXNORM 1 suppos itory Rectal as needed [...] 2022 - Acetaminophen Tablet 325 MG active 006267 RXNORM 2 tablet Oral as needed PRN [...] for Temp 100F or above 2022 - 379536 RXNORM 2 tablet Oral as needed PRN [...] - Lisinopril Oral Tablet 20 MG active 697318 RXNORM 1 tablet Oral one time a [...] ATROPHY, NOT ELSEWHERE CLASSIFIED, UNSPECIFIED SITE [address] active 2 COVID-[address] active 3 OTHER ABNORMALITIES OF GAIT AND MOBILITY [address] active 4 ADULT FAILURE TO THRIVE [address] active 5 CEREBRAL ATHEROSCLEROSIS [address] active 6 DYSPHAGIA, OROPHARYNGEAL PHASE [address] active 7 ESSENTIAL (PRIMARY) HYPERTENSION [address] active 8 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 HEMORRHAGE AFFECTING RIGHT DOMINANT SIDE [address] active 9 [address]KALEMIA [address] active 10 MUSCLE WEAKNESS (GENERALIZED) [address] active 11 NEED FOR ASSISTANCE WITH PERSONAL CARE [address] active 12 OTHER FATIGUE [address] active 13 OTHER MALAISE [address] active 14 OTHER SEQUELAE OF CEREBRAL INFARCTION 023 07/12/[address] completed 15 PERSONAL HISTORY OF TRANSIENT ISCHEMIC ATTACK (TIA), AND CEREBRAL INFARCTION WITHOUT RESIDUAL DEFICITS [address] active 16 SPONDYLOSIS WITHOUT MYELOPATHY OR RADICULOPATHY, THORACIC REGION [address] active 17 TYPE 2 DIABETES MELLITUS WITHOUT COMPLICATIONS [address] active 18 UNSPECIFIED ATRIAL FIBRILLATION [address] active 19 UNSPECIFIED PROTEIN-CALORIE MALNUTRITION [address] active 20 UNSPECIFIED SEQUELAE OF UNSPECIFIED CEREBROVASCULAR DISEASE [address] active 21 WEAKNESS [address] active 22 COVID-19 021 06/10/[address] completed 23 CONSTIPATION, UNSPECIFIED 06/25/[address] completed 24 DIFFICULTY IN WALKING, NOT ELSEWHERE CLASSIFIED 06/25/[address] completed 25 DYSARTHRIA FOLLOWING NONTRAUMATIC INTRACEREBRAL HEMORRHAGE 06/25/[address] completed 26 ESSENTIAL (PRIMARY) HYPERTENSION 06/25/[address] completed 27 FRONTAL LOBE AND EXECUTIVE FUNCTION DEFICIT 06/25/[address] completed 28 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 HEMORRHAGE AFFECTING RIGHT DOMINANT SIDE 06/25/[address] completed 29 MUSCLE WEAKNESS (GENERALIZED) 06/25/[address] completed 30 NONTRAUMATIC INTRACEREBRAL HEMORRHAGE IN HEMISPHERE, SUBCORTICAL 06/25/[address] completed 31 OTHER SYMPTOMS AND SIGNS INVOLVING COGNITIVE FUNCTIONS AND AWARENESS 06/25/[address] completed 32 PERSONAL HISTORY OF TRANSIENT ISCHEMIC ATTACK (TIA), AND CEREBRAL INFARCTION WITHOUT RESIDUAL DEFICITS 06/25/[address] completed 33 TYPE 2 DIABETES MELLITUS WITHOUT COMPLICATIONS 06/25/[address] completed 34 UNSPECIFIED ATRIAL FIBRILLATION 06/25/[address] completed 35 UNSPECIFIED PROTEIN-CALORIE MALNUTRITION 06/25/[address] completed Reason for Referral No Reasons for Referral Entered Social History Social History Observation Description Start Date End Date Code Code System Current Smoking Status Tobacco smoking consumption unknown 102093903 SNOMED CT Sex Assigned At Female 1940 96182-4 [facility] Vital Signs Code Code System Vitals Name Values and Units Timing Information 8462-4 [facility] Blood Pressure-Diastolic Value=72 Un its=mmHg 09/05/2023 8480-6 [facility] Blood Pressure-Systolic Vgrlu=627 Un its=mmHg 09/05/2023 15659-3 [facility] Pain Level Value=0.0 09/05/2023 8867-4 [facility] Heart rate Value=70.0 Units=/min 04/2023 8310-5 [facility] Body Temperature Value=98.0 Units= F 08/28/2023 85970-3 [facility] O2 % BldC Oximetry Value=98.0 Units= % 08/28/2023 9279-1 [facility] Respiratory Rate Value=18.0 Units=/m in 08/28/2023 39918-7 [facility] Weight Jopnf=928.0 Units=Lbs 8302-2 [facility] Height Value=64.0 Units=Inches 07/13/2023
--- OUTSIDE RECORDS SUMMARY | 2025-01-14 17:07 | XMS_ITS | Clinical Summary ---
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/27/2018 History of ischemic left MCA stroke 11/24/2018 Atrial fibrillation ([facility]) 11/22/2018 Diabetes mellitus ([facility]) 11/22/2018 Resolved Problems Problem Noted Date Diagnosed [...] on file Legal Sex 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 Gender Identity Not on file Sexual Orientation Straight 11/24/2018 10 :43 PM FURNACE MECHANIC Last Filed Vital Signs Vital Sign Reading [...] cm (5' 6 ) 11/24/2018 10:28 PM FURNACE MECHANIC Body Mass Index 30.18 11/24/2018 10:28 PM FURNACE MECHANIC Plan of Treatment Health Maintenance Due Date [...] 7.5(H) <5.7 % 12/23/2018 9:13 AM CDT [facility] Comment: INCREASED RISK OF DIABETES<5.7% NON-DIABETES5.7-6.4% INCREASED RISK FOR FUTURE DIABETES> OR = 6.5 CONSISTENT WITH DIABETES STANDARDS OF MEDICAL CARE IN [facility]ABETES-[facility], [facility](SUPP 1): S1-S61,2010 WHOLE BLOOD SPECIMEN / Unknown 12/22/2018 12:00 PM CDT 12/22/2018 2:38 PM CDT us Generic Conversion Md [facility] Final R esult [facility] [address] [place] [address], * (ABNORMAL) LIPID PANEL (12/22/2018 12:00 PM CDT) CHOLESTEROL 178 <200.0 MG/DL 12/22/2018 3:42 PM CDT [facility] TRIGLYCERIDES 96 <150 MG/DL 12/22/2018 3:42 PM CDT [facility] HDL 49 >40.0 MG/DL 12/22/2018 3:42 PM CDT [facility] LDL (CALCULATED) 110(H) <100 MG/DL 12/22/2018 3:42 PM CDT [facility] NON HDL CHOLESTEROL 129 <130 MG/DL 12/22/2018 3:42 PM CDT [facility] CHOL/HDL RATIO 3.6 0.0 - 4.5 12/22/2018 3:42 PM CDT [facility] VLDL CALCULATION 19 5 - 55 MG/DL 12/22/2018 3:42 PM CDT [facility] LIPID INTERPRETATION 12/22/2018 3:42 PM CDT [facility] Comment: NIH CONCENSUS REPORT [...] Conversion Md [facility] Final R esult [facility] [address] [place] [address], from Last 3 Months or Most Recently Relevant to Health Maintenance Insurance MEDICARE MEDICAID Advance Directives * Full Code (Latest Code Status on File) Date Activated Date Inactivated Comments 11/24/2018 11:18 PM 12/09/2018 1:48 PM Care Teams Hvac Installer Relationship Specialty Start Date End Date None, Provider, PCP - General 11/26/18
--- OUTSIDE RECORDS SUMMARY | 2025-01-14 17:07 | XMS_ITS | Encounter Summary ---
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 Answer Date of Assessment Author Status No 11/24/2018 10:30 PM BLENDER HELPER Acti ve * Do you have serious difficulty walking or climbing stairs? Answer Date of Assessment Author Status Yes 11/24/2018 10:30 PM BLENDER HELPER Ritika Weaver RN Active * Do you [...] on filedocumented in this encounter Care Teams Entomology Professor Relationship Specialty Start Date End Date None, Provider, PCP - General 11/26/18 documented as of this encounter
--- OUTSIDE RECORDS SUMMARY | 2025-01-14 17:07 | XMS_ITS | Continuity of Care Document ---
Author Organization [facility] Address [address] [facility] [place] [address] [place] [address] Phone Care Team Providers Care Director Of Intelligence Name Role Phone Clyde Monge MD Unavailable [...] on Encounter OFFICE/OUTPA TIENT VISIT, EST [facility], [address] [place], [address], [place] tel:[phone] [facility] weakness1 (chief complaint) Adult failure to thriveAbnormality of gaitEssential (primary) hypertensionAnemiaA bnormality of albuminDisorder of thyroid, unspecifiedMixed hyperlipidemia 3 Saleem Tang. [address], [address] , [place]. tel:[phone] PREV VISIT, EST, 65 & OVER [facility], [address] [place], [address], [place] tel:[phone] [facility] physical (chief complaint) Encounter for general adult medical exam w abnormal findingsEssential (primary) hypertensionAtrial fibrillationStrokeT hyroid noduleType 2 diabetes mellitus without complicationsAbnorm ality of gaitAnemia 3 Saleem Tang. [address], [address] , [place]. tel:[phone] OFFICE/OUTPA TIENT VISIT, [facility], [address] [place], [address], [place] tel:[phone] [facility] HTN (chief complaint) CVA (chief complaint) weight loss1 (chief complaint) DM (chief complaint) Essential (primary) hypertensionType 2 diabetes mellitus without complicationsAtrial fibrillationThyroid noduleStroke 3 Saleem Tang. [address], [place], [place], [address] , [place]. tel:[phone] OFFICE/OUTPA TIENT VISIT, EST [facility], [address] [place], [address], [place] tel:[phone] [facility] HTN (chief complaint) DM (chief complaint) weight loss1 (chief complaint) Essential (primary) hypertensionType 2 diabetes mellitus without complicationsAbnorm al weight loss 2 Monge Clyde. [address], [place], [place], [address] , [place]. tel:[phone] OFFICE/OUTPA TIENT VISIT, EST [facility], [address] [place], [address], [place] tel:[phone] [facility] brain bleeding1 (chief complaint) AnemiaAtrial fibrillationNontrau matic intracerebral hemorrhage, unspecifiedEssentia l (primary) hypertensionType 2 diabetes mellitus without complications May- 2 Monge Clyde. [address], [place], [place], [address] , [place]. tel:[phone] OFFICE/OUTPA TIENT VISIT, [facility], [address] [place], [address], [place] tel:[phone] [facility] HTN (chief complaint) DM (chief complaint) Hypertensive emergencyAtrial fibrillationType 2 diabetes mellitus without complications Mar- 2 Monge Clyde. [address], [place], [place], [address] , [place]. tel:[phone] OFFICE/OUTPA TIENT VISIT, [facility], [address] [place], [address], [place] tel:[phone] [facility] physical (chief complaint) Encounter for general adult medical exam w abnormal findingsEssential (primary) hypertensionAtrial fibrillationNontrau matic intracerebral bleedingThyroid noduleType 2 diabetes mellitus without complicationsAbnorm al weight loss 2 Saleem Clyde. [address], [place], [place], [address] , [place]. tel:[phone] OFFICE/OUTPA TIENT VISIT, [facility], [address] [place], [address], tel:[phone] [facility] CVA (chief complaint) CVA1 (chief complaint) Atrial fibrillationEssenti al (primary) hypertensionType 2 diabetes mellitus without complicationsNontra umatic intracerebral bleeding 1 Saleem Price [address], [address] , [place]. tel:[phone] OFFICE/OUTPA TIENT VISIT, [facility], [address] [place], [address], tel:[phone] [facility] physical (chief complaint) Encounter for general adult medical exam w abnormal findingsEssential (primary) hypertensionAtrial fibrillationType 2 diabetes mellitus without complications 0 1 Saleem Price [address], [address] , [place]. tel:[phone] OFFICE/OUTPA TIENT VISIT, [facility], [address] [place], [address], tel:[phone] [facility] DM (chief complaint) HTN (chief complaint) afib (chief complaint) Atrial fibrillationEssenti al (primary) hypertensionType 2 diabetes mellitus without complicationsThyroi d noduleAbnormality of globulin 0 Saleem Price [address], [address] , [place]. tel:[phone] OFFICE/OUTPA TIENT VISIT, [facility], [address] [place], [address], tel:[phone] [facility] DM (chief complaint) globulin1 (chief complaint) renal (chief complaint) HTN (chief complaint) thyroid nodule1 (chief complaint) Essential (primary) hypertensionAtrial fibrillationLiver diseaseType 2 diabetes mellitus without complicationsThyroi d noduleAbnormality of globulinVitamin D deficiency, unspecifiedRenal disease 0 Saleem Tang. [address], [address], [place], [place], [address] , [place]. tel:[phone] Referring Provider: Ketty Hanna [address], [place], [place], [address]. tel:[phone] OFFICE/OUTPA TIENT VISIT, [facility], [address], [place], [place], [address], [place] tel:[phone] [facility] physical (chief complaint) Encounter for general adult medical exam w abnormal findingsStrokeAtria l fibrillationLiver diseaseType 2 diabetes mellitus without complicationsEssent ial (primary) hypertension 9 Saleem Tang. [address], [address], [place], [place], [address] , [place]. tel:[phone] Referring Provider: Ketty Hanna [address], [place], [place], [address]. tel:[phone] OFFICE/OUTPA TIENT VISIT, [facility], [address], [place], [place], [address], [place] tel:[phone] [facility] CVA1 (chief complaint) StrokeAtrial fibrillationRhabdom yolysisType 2 diabetes mellitus without complicationsThyroi d nodule 9 Saleem Tang. [address], [address], [place], [place], [address] , [place]. tel:[phone] Referring Provider: Ketty Hanna [address], [place], [place], [address]. tel:[phone] OFFICE/OUTPA TIENT VISIT, [facility], [address], [place], [place], [address], [place] tel:[phone] [facility] HTN (chief complaint) edema1 (chief complaint) skin1 (chief complaint) thyroid (chief complaint) low D (chief complaint) Type 2 diabetes mellitus without complicationsAbnorm ality of globulinRenal diseaseDisorder of thyroid, unspecifiedVitamin D deficiency, unspecifiedSkin changes 8 Saleem Tang. [address], [address], [place], [place], [address] , [place]. [phone] Referring Provider: Ketty Hanna [address], [place], [place], [address]. tel:[phone] OFFICE/OUTPA TIENT VISIT, [facility], [address], [place], [place], [address], [place] tel:[phone] [facility] Physical (chief complaint) Encounter for general adult medical exam w abnormal findingsEssential (primary) hypertensionType 2 diabetes mellitus without complicationsStroke Cellulitis of right lower limb 8 Saleem Tang. [address], [address], [place], [address] , [place]. [phone] Referring Provider: Ketty Hanna [address], [place], [place], [address]. tel:[phone] OFFICE/OUTPA TIENT VISIT, [facility], [address], [place], [place], [address], [place] tel:[phone] [facility] HTN (chief complaint) DM (chief complaint) edema1 (chief complaint) EdemaEssential (primary) hypertensionType [address] complications[address]ara ct with neovascularization, bilateral 7 Saleem Tang. [address], [address], [place], [place], [address] , [place]. [phone] Referring Provider: Ketty Hanna [address], [place], [place], [address]. tel:[phone] OFFICE/OUTPA TIENT VISIT, [facility], [address], [place], [address], [place] tel:[phone] [facility] DM (chief complaint) cataract1 (chief complaint) HTN (chief complaint) edema1 (chief complaint) Type 2 diabetes mellitus without complicationsEdemaE ssential (primary) hypertensionCatarac t in diseases classified elsewhere 7 Saleem Tang. [address], [address], [place], [place], [address] , [place]. tel:[phone] Referring Provider: Ketty Hanna [address], [place], [place], [address]. tel:[phone] OFFICE/OUTPA TIENT VISIT, [facility], [address], [address], [place] tel:[phone] [facility] DM (chief complaint) Other visual disturbancesType 2 diabetes mellitus without complicationsTransi ent cerebral ischemic attack 7 Saleem Tang. [address], [address], [place], [place], [address] , [place]. tel:[phone] Referring Provider: Ketty Hanna [address], [place], [place], [address]. tel:[phone] OFFICE/OUTPA TIENT VISIT, [facility], [address], [place], [place], [address], [place] [phone] [facility] DM (chief complaint) CVA (chief complaint) CVA1 (chief complaint) HTN (chief complaint) edema1 (chief complaint) Type 2 diabetes mellitus without complicationsTransi ent cerebral ischemic attackEssential (primary) hypertensionEdema 7 Saleem Tang. [address], [address], [place], [place], [address] , [place]. tel:[phone] Referring Provider: Ketty Hanna [address], [place], [place], [address]. tel:[phone] OFFICE/OUTPA TIENT VISIT, [facility], [address], [address], [place] tel:[phone] [facility] HTN (chief complaint) edema (chief complaint) eczema1 (chief complaint) weight loss1 (chief complaint) Essential (primary) hypertensionEdemaEc zemaAbnormal weight loss 6 Saleem Tang. [address], [address], [place], [place], [address] , [place]. tel:[phone] Referring Provider: Ketty Hanna [address], [place], [place], [address]. tel:[phone] OFFICE/OUTPA TIENT VISIT, [facility], [address], [place], [place], [address], [place] tel:[phone] [facility] edema (chief complaint) HTN (chief complaint) dry leg (chief complaint) Dietary surveillance and counselingEdemaUnsp ecified essential hypertensionAcute, but ill-defined, cerebrovascular disease 0-201 5 Saleem Tang. [address], [place], [place], [address] , [place]. tel:[phone] Referring Provider: Ketty Hanna [address], [place], [place], [address]. tel:[phone] OFFICE/OUTPA TIENT VISIT, [facility], [address], [place], [address], [place] tel:[phone] [facility] HTN (chief complaint) Edema (chief complaint) TG (chief complaint) Dietary surveillance and counselingEdemaHype rtension, UnspecifiedOther and unspecified hyperlipidemia Damián-2 0201 4 Saleem Tang. [address], [place], [place], [address] , [place]. tel:[phone] Referring Provider: Ketty Hanna [address], [place], [place], [address]. tel:[phone] OFFICE/OUTPA TIENT VISIT, [facility], [address], [place], [place], [address], [place] tel:[phone] [facility] HTN (chief complaint) Dietary surveillance and counselingHypertens ion, UnspecifiedAcute, but ill-defined, cerebrovascular diseaseEdema 0 6201 3 Saleem Tang. [address], [address], [place], [place], [address] , [place]. tel:[phone] Referring Provider: Ketty Hanna [address], [place], [place], [address]. tel:[phone] OFFICE/OUTPA TIENT VISIT, [facility], [address], [place], [place], [address], [place] tel:[phone] [facility] CVA (chief complaint) HTN (chief complaint) Edema (chief complaint) Dietary surveillance and counselingHypertens ion, UnspecifiedAcute, but ill-defined, cerebrovascular diseaseEdema 0 2 Saleem Tang. Ketty Garcia [facility] [place], [address] , . [phone] Referring Provider: Clyde Ketty Monge [facility] [address], [place], [place], [address]. tel:[phone] Family History Family Member Type Diagnosis Age [...] Chou [address] [place], [place] [address] Ordered: Referrals: Allopathic & Osteopathic Physicians : Dermatology. Keke Chou. Evaluate and treat ordered Referral Ordered: Physical Therapy (related to Transient cerebral ischemic attack) ordered Referral Referred To: Physical Therapy Ordered: Referrals: Physical Therapy. Evaluate and treat ordered History Of Present Illness Encounter Date Complaint History Of Prese nt Illness weakness1 Pt presents [facility] along with her . Per her , [...] n odule on MRI of brain from [facility] 2018/ Pt is noncompliant with thyroid ultrasound [...] Mental Status Date Cognitive Assessment Orientation - Courtenay ed to time, place, person, situation.
--- OUTSIDE RECORDS SUMMARY | 2025-01-14 17:07 | XMS_ITS | Clinical Summary ---
Author Organization [facility] Address [address] [address] Care Team Providers Care Senior Radiation Therapist Name Role Phone Clyde Monge MD Primary Care Provider Source Comments [facility],non-owned Affiliates and Associated Physician Practices is amultiple site organization consisting of ambulatory clinics and hospital sitesin [place], [place], [place] and [place]. This disclosure is being madepursuant to the Care Everywhere program and may not contain all information available regarding this patient. Last updated 18.[facility] Allergies No known active allergies Medications * [...] on file Legal Sex Female 8:03 AM COMMISSIONING AGENT Gender Identity Not on file Sexual Orientation [...] cm (5' 9 ) 11/22/2018 4:48 PM COMMISSIONING AGENT Body Mass Index 23.1 11/22/2018 4:48 PM COMMISSIONING AGENT Plan of Treatment Health Maintenance Due Date [...] 7 - 26 mg/dL 04/19/2022 3:04 AM [facility] Creatinine 0.97(H) 0.56 - 0.96 mg/dL 04/19/2022 3:04 AM [facility] Sodium 142 136 - 145 mmol/L 04/19/2022 3:04 AM [facility] Potassium 3.2(L) 3.5 - 4.5 mmol/L 04/19/2022 3:04 AM [facility] Chloride 109(H) 98 - 107 mmol/L 04/19/2022 3:04 AM [facility] CO2 24 22 - 29 mmol/L 04/19/2022 3:04 AM [facility] Glucose 96 70 - 115 mg/dL 04/19/2022 3:04 AM [facility] Calcium 8.2(L) 8.4 - 10.2 mg/dL 04/19/2022 3:04 AM [facility] Anion Gap 12 8 - 18 04/19/2022 3:04 AM [facility] BUN/Creatinine Ratio 16 7 - 23 04/19/2022 3:04 AM [facility] Osmolality Calculated 295 270 - 300 mOsm/kg 04/19/2022 3:04 AM [facility] eGFR by CKD-EPI 59(L) >=90 mL/min/1.7 3 m2 04/19/2022 3:04 AM [facility] Blood BLOOD SPECIMEN / Unknown Lab Venipuncture / Unknown 04/19/2022 2:23 AM CDT 04/19/2022 2:40 AM CDT Vijay Garcia MD LAB - CHEMISTRY ORDERABLES Fi nal Result Performing Organization Address [facility]/ZIP Co de Phone Number [facility] [address] [place] [address], [place] [phone] * (ABNORMAL) HEMOGLOBIN A1C (04/18/2022 12:31 AM CDT) Hemoglobin A1c 6.2(H) <=5.6 % 04/18/2022 3:45 PM CDT [facility] Estimated Average Glucose 131 mg/dL 04/18/2022 3:45 PM T [facility] Comment: HbA1c Interpretation: Normal : < 5.7% Pre-diabetes: 5.7-6.4% Diabetes: Equal to or greater than 6.5% Test results diagnostic of diabetes should be repeated for confirmation. Treatment target values recommended by ADA and other clinical organizations should be used to evaluate metabolic control in patients. Reference: [place] [employer], Standards of Care in [...] LAB - CHEMISTRY ORDERABLES Fi nal Result [facility] [address] [place] [address], [place] [phone] from Last 3 Months or Most Recently Relevant to Health Maintenance Insurance MEDICAID - [place] MEDICARE MEDICARE MEDICAID - OUT OF STATE Advance Directives * Full Code (Latest Code Status on File) Date Activated Date Inactivated Comments 04/16/2022 12:06 AM 04/19/2022 3:36 PM * Full Code Date Activated Date Inactivated Comments 11/22/2018 9:21 AM 11/24/2018 6:11 PM Care Teams Senior Radiation Therapist Relationship Specialty Start Date End Date [place] [address] PCP - General Family Medicine 04/16/22
== END 2025-01-14 17:07 ==
PROVIDERS: Emergency Provider Registered Nurse
DX: T14.90XA Injury, unspecified, initial encounter (principal); W05.0XXA Fall from non-moving wheelchair, initial encounter; E11.9 Type 2 diabetes mellitus without complications; E78.2 Mixed hyperlipidemia; I10 Essential (primary) hypertension; I69.359 Hemiplegia and hemiparesis following cerebral infarction affecting unspecified side
CPT/HCPCS: 70450; 72125; 99284